=== PATIENT | female | born 2000 | race Caucasian/White ===

== ENCOUNTER 2022-05-09 11:06 | Emergency (ER) | payer SELFPAY ==
--- NOTE | 2022-05-09 12:41 | EDPHYS ---
Physician Documentation [facility] Name: Lavonne Navarro Age: 21 yrs Sex: Female : 2000 Arrival Date: 05/09/2022 Time: 11:09 Bed 7 Private MD: ED Physician Vincenzo Garrison HPI: 05/09 11:40 This 21 yrs old Female presents to ER via Ambulatory with complaints of Fall Injury. ma2 11:40 Patient tripped while walking down the stairs fell on her bottom, presents with low ma2 back pain, radiates to the right side lower back, denies urinary incontinence or retention, no focal weakness no change in sensation. No head trauma no neck pain.. Historical: - Allergies: 11:28 No Known Allergies; [facility] - Home Meds: 11:28 None [Active]; [facility] - PMHx: 11:28 None; [facility] - Immunization history:: Adult Immunizations up to date. - Social history:: Smoking status: Patient denies any tobacco usage or history of. - Family history:: not pertinent. ROS: 11:40 Constitutional: Negative for fever, chills, and weight loss. ma2 11:40 All other systems are negative. Exam: 11:40 Constitutional: This is a well developed, well nourished patient who is awake, alert, ma2 and in no acute distress. Head/Face: Normocephalic, atraumatic. Eyes: Pupils equal round and reactive to light, extra-ocular motions intact. Lids and lashes normal. Conjunctiva and sclera are non-icteric and not injected. Cornea within normal limits. Periorbital areas with no swelling, redness, or edema. ENT: Nares patent. No nasal discharge, no septal abnormalities noted. Tympanic membranes are normal and external auditory canals are clear. Oropharynx with no redness, swelling, or masses, exudates, or evidence of obstruction, uvula midline. Mucous membranes moist. Neck: Trachea midline, no thyromegaly or masses palpated, and no cervical lymphadenopathy. Supple, full range of motion without nuchal rigidity, or vertebral point tenderness. No Meningismus. Chest/axilla: Normal chest wall appearance and motion. Nontender with no deformity. No lesions are appreciated. Cardiovascular: Regular rate and rhythm with a normal S1 and S2. No gallops, murmurs, or rubs. Normal PMI, no JVD. No pulse deficits. Respiratory: Lungs have equal breath sounds bilaterally, clear to auscultation and percussion. No rales, rhonchi or wheezes noted. No increased work of breathing, no retractions or nasal flaring. Abdomen/GI: Soft, non-tender, with normal bowel sounds. No distension or tympany. No guarding or rebound. No evidence of tenderness throughout. Back: There is to palpation right lower back, otherwise no midline tenderness, no spinal tenderness. No costovertebral tenderness. Full range of motion. Skin: Warm, dry with normal turgor. Normal color with no rashes, no lesions, and no evidence of cellulitis. MS/ Extremity: Pulses equal, no cyanosis. Neurovascular intact. Full, normal range of motion. Neuro: Awake and alert, GCS 15, oriented to person, place, time, and situation. Cranial nerves II-XII grossly intact. Motor strength 5/5 in all extremities. Sensory grossly intact. Cerebellar exam normal. Normal gait. Vital Signs: 11:20 BP 102 / 75; Pulse 93; Resp 18; Temp 98.2(O); Pulse Ox 98% ; Weight 78.02 kg; Height 5 jh6 ft. 7 in. (170.18 cm); Pain 7/10; 11:20 Body Mass Index 26.94 (78.02 kg, 170.18 cm) jh6 [place] Coma Score: 11:31 Eye Response: spontaneous(4). Verbal Response: oriented(5). Motor Response: obeys jh6 commands(6). Total: 15. Trauma Score (Adult): 11:31 Eye Response: spontaneous(1); Verbal Response: oriented(1); Motor Response: obeys jh6 commands(2); Systolic BP: > 89 mm Hg(4); Respiratory Rate: 10 to 29 per min(4); Parisa Score: 15; Trauma Score: 12 MDM: 11:40 Differential diagnosis: contusion, sprain, strain. Data reviewed: vital signs, nurses ma2 notes. Counseling: I had a detailed discussion with the patient and/or guardian regarding: the historical points, exam findings, and any diagnostic results supporting the discharge/admit diagnosis, the presence of at least one elevated blood pressure reading (>120/80) during this emergency department visit, the need for outpatient follow up. Response to treatment: the patient's symptoms have markedly improved after treatment. 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 this time.. 12:41 Patient medically screened. ma2 Administered Medications: No medications were administered Disposition Summary: 05/09/22 12:41 Discharge Ordered Location: Home [facility] Condition: Stable [facility] Diagnosis - Low back pain nj2 Followup: nj2 - With: Private Physician - When: Tomorrow - Reason: If symptoms return Discharge Instructions: - Discharge Summary Sheet ma2 - Acute Back Pain, Adult nj2 Forms: - Medication Reconciliation Form nj2 - Thank You Letter nj2 - Antibiotic Education nj2 - Prescription Opioid Use nj2 Prescriptions: - Cyclobenzaprine 10 mg Oral Tablet - take 1 tablet by ORAL route every 8 hours As needed; 30 tablet; Refills: 0, ma2 Product Selection Permitted - Diclofenac Sodium 75 mg Oral Tablet Sustained Release - take 1 tablet by ORAL route 2 times per day; 30 tablet; Refills: 0, Product ma2 Selection Permitted - Medrol (Wally) 4 mg Oral Tablets, Dose Pack - take 1 tablet by ORAL route as directed - follow package instructions; 1 ma2 packet; Refills: 0, Product Selection Permitted Signatures: Dispatcher [employer] EDMS Vincenzo Garrison MD MD nj2 Bernice Grossman RN RN jh6 Corrections: (The following items were deleted from the chart) 12:32 11:41 Lumbar Spine 3 Views+[id number] ordered. EDMS EDMS
--- NOTE | 2022-05-09 12:41 | ER ---
Nurse's Notes [facility] Name: Lavonne Navarro Age: 21 yrs Sex: Female : 2000 Arrival Date: 05/09/2022 Time: 11:09 Bed 7 Private MD: Diagnosis: Low back pain Presentation: 05/09 11:20 Chief complaint: Patient states: pt stated that she slid down 4-5 steps and hit her [facility] lower back. now having lower back pain. no bruising or swelling noted. pain with palpation, denies numbness or tingling to lower ext. Coronavirus screen: Vaccine status: Patient reports receiving the 2nd dose of the covid vaccine. At this time, the client does not indicate any symptoms associated with coronavirus-19. Ebola Screen: Patient negative for fever greater than or equal to 101.5 degrees Fahrenheit, and additional compatible Ebola Virus Disease symptoms Patient denies exposure to infectious person. Patient denies travel to an Ebola-affected area in the 21 days before illness onset. Initial Sepsis Screen: Does the patient meet any 2 criteria? No. Patient's initial sepsis screen is negative. Does the patient have a suspected source of infection? No. Patient's initial sepsis screen is negative. Risk Assessment: Do you want to hurt yourself or someone else? Patient reports no desire to harm self or others. Onset of symptoms was May 09, 2022. 11:20 Method Of Arrival: Ambulatory [facility] 11:20 Acuity: VALERIE 4 [facility] Triage Assessment: 11:29 General: Appears in no apparent distress. Behavior is calm, cooperative. Pain: [facility] Complains of pain in coccyx, left lower back and right lower back. Historical: - Allergies: 11:28 No Known Allergies; [facility] - Home Meds: 11:28 None [Active]; [facility] - PMHx: 11:28 None; [facility] - Immunization history:: Adult Immunizations up to date. - Social history:: Smoking status: Patient denies any tobacco usage or history of. - Family history:: not pertinent. Screenin:30 Abuse screen: Denies threats or abuse. Nutritional screening: No deficits noted. [facility] Tuberculosis screening: No symptoms or risk factors identified. Fall Risk None identified. Primary Survey: 11:30 NO uncontrolled hemorrhage observed. A: The client is awake and alert. The airway is jh6 patent. Breathing/Chest: Spontaneous respiratory effort, equal unlabored respirations, breath sounds clear bilaterally, regular pattern, symmetrical chest rise and fall. Circulation: No external hemorrhage present. Regular and strong central pulse, skin warm/dry/normal color. Disability Pupils are equal, round, reactive to light and accommodation. Exposure/Environment: A warming method has been applied: A warm blanket has been provided to the patient. 11:31 Reassessment Alertness and Airway: Awake and alert. The airway is patent. Breathing: jh6 Spontaneous respiratory effort, equal unlabored respirations, breath sounds clear bilaterally, regular pattern with symmetrical chest rise and fall. Circulation: No external hemorrhage noted. Regular and strong central pulse, skin warm/dry/normal color. Disability: Pupils Pupils are equal, round, reactive to light and accomodation. Assessment: 11:30 General: Appears in no apparent distress. Behavior is calm, cooperative. 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 pt doesn't want to wait for x rays to be completed. Vital Signs: 11:20 BP 102 / 75; Pulse 93; Resp 18; Temp 98.2(O); Pulse Ox 98% ; Weight 78.02 kg; Height 5 jh6 ft. 7 in. (170.18 cm); Pain 7/10; 11:20 Body Mass Index 26.94 (78.02 kg, 170.18 cm) 6 Parisa Coma Score: 11:31 Eye Response: spontaneous(4). Verbal Response: oriented(5). Motor Response: obeys 6 commands(6). Total: 15. Trauma Score (Adult): 11:31 Eye Response: spontaneous(1); Verbal Response: oriented(1); Motor Response: obeys 6 commands(2); Systolic BP: > 89 mm Hg(4); Respiratory Rate: 10 to 29 per min(4); Parisa Score: 15; Trauma Score: 12 ED Course: 11:09 Patient arrived in ED. as 11:16 Vincenzo Garrison MD is Attending Physician. ma2 11:20 Bernice Grossman RN is Primary Nurse. 6 11:28 Triage completed. 6 11:29 Arm band placed on left wrist. 6 Administered Medications: No medications were administered Outcome: 12:41 Discharge ordered by . chelo 12:57 Patient left the ED. jh6 Signatures: Brooke Barrientos Mohammad, MD MD ma2 Hastedt, Jennifer RN RN jh6
[2022-05-09 13:02] VITALS: BP 102/75; TEMP 98.2; O2SAT 98
== END 2022-05-09 12:57 | disposition home or self-care (01) ==
LOC: ER 11:06
DX: M54.50 Low back pain, unspecified (principal)
CPT/HCPCS: 99281

== ENCOUNTER 2022-06-06 11:57 | Emergency (ER) | payer SELFPAY ==
--- OUTSIDE RECORDS SUMMARY | 2022-06-06 12:00 | XMS REPORT | Continuity of Care Document ---
:2000 Author Organization [facility] t Address [address] [place] [address] [address]. [address] [place] [address] Care Team Providers Name Role Phone WALDEMAR, Attending Clinician Unavailable DR Tyson MANCILLA Attending Clinician Unavailable DR ANNA Attending Clinician Unavailable DR YOEL Attending Clinician Unavailable DR WALDEMAR Admitting Clinician Unavailable DR Tyson MANCILLA Admitting Clinician Unavailable DR ANNA Admitting Clinician Unavailable DR YOEL Admitting Clinician Unavailable Payers Payer Name Policy Type Policy Number Effective Date Expiration Date S ource 1000 [id number] 2018 00:00:00 Problems This patient has no known problems. Allergies, Adverse Reactions, Alerts Allergy Allergy Status Severity Reaction(s) Onset Inactive Treating Comm ents Source Name Type Date Date Clinician No Known DA Active [facility] Medications This patient has no known medications. Vital Signs Vital Name Observation Time Observation Value Comments Source Height 2022-03-03 19:27:00 172.72 CM Weight 2022-03-03 19:27:00 80.73 KG Weight 2022-02-25 03:44:00 77.11 KG Height 2022-02-25 03:34:00 142.24 CM Height 2022-01-08 19:28:00 170.18 CM Weight 2022-01-08 19:28:00 79.37 KG Height 2021-12-21 18:36:00 170.18 CM Weight 2021-12-21 18:36:00 70.3 KG Procedures This patient has no known procedures. Encounters Start End Encounter Admission Attending Care Care Encounter Source Date/Time Date/Time Type Type Clinicians Facility Department ID 2022-03-03 2022-03-03 Outpatient E MARCELO MEDEIROS [facility] [id number] 19:14:00 22:40:00 [facility] 2022-02-25 2022-02-25 Outpatient E CHARO, [facility] [id number] [place] 03:29:00 04:30:00 FERNANDEZ [facility] 2022-01-08 2022-01-08 Outpatient E ANNA, [facility] [id number] [place] 19:07:00 20:00:00 REZA [facility] 2021-12-21 2021-12-21 Outpatient E , [facility] [id number] 18:25:00 19:25:00 [facility] Results Test Description Test Time Test Comments Results Result [facility] e Comments CT NECK W/CONTRAST 2022-03-03 *OW* 21:33:32 [facility] 2000 Sex: F Lo cation code: H5CT Scan of the Neck Soft Tissues with contrastContrast: Indication: Acute infectious disease. Sore throatComparison: None.Technical factors: Axial images were obtained through the neck with and without contrast. Sagittal and coronal reconstruction. This exam was performed according to our departmental dose-optimization program, which includes automated exposure control, adjustment of the mA and/or kV according to patient size and/or use of iterative reconstruction technique. Total exam DLP 397.46 mGy. Contrast dosage: unavailable.Findings: No evidence of soft tissue mass, fluid collection, cyst formation, edema, or adenopathy. No abnormal enhancing lesion is seen.Visualized paranasal sinuses are clear. The airway is patent. Vocal cords appear normal. Lung apices are clear.The palatine tonsils are enlarged, larger on the right. The right parathyroid gland is inhomogeneous and measures 2.93 x 3.43 x 3.37 cm, consistent with tonsillitis. No evidence of abscess, though inhomogeneity suggests the presence of phlegmon. Mild narrowing of the airway.Inhomogeneous right thyroid mass measures 5 x 4.11 x 2.4 cm.Musculotendinous structures are unremarkable. No evidence of atrophy, mass, or lesion.No vascular anomaly is seen.Skeletal structures are normal for patient age.No abnormal enhancing lesion is seen.Impression:1. Right thyroid 5 cm mass may represent tumor. Consider sonographic evaluation.2. Enlarged palatine tonsils, greater on the right. The right palatine tonsil is inhomogeneous, suggestive of phlegmon. Findings are consistent with tonsillitis.Camelia gaming signed by: Fabian Gray MD 03/03/2022 9:33 PM CDT GENERAL CHEMISTRY 13 *OW* divya 2022-03-03 20:50:00 Test Item Value Reference Range Interpretation Comme nts GLUCOSE (test code = GGUL) 99 mg/dL 73-118 BUN (test code = GBUN) 10 mg/dL 7-22 CREATININE (test code = GCRE) 0.4 mg/dL 0.6-1.2 L URIC ACID (test code = GUA) 3.1 mg/dL 2.2-6.6 CALCIUM (test code = GCL+) 10.1 mg/dL 8.0-10.3 ALBUMIN (test code = GALB) 4.6 g/dL 3.5-5.5 PROTEIN (test code = GTP) 9.1 g/dL 6.4-8.1 H ALT (test code = GALT) <5 U/L 10-47 L AST (test code = MINA) 20 U/L 11-38 ALK PHOS (test code = GALP) 72 U/L 42-141 BILI TOTAL (test code = GTBIL) 1.3 mg/dL 0.2-1.6 GGT (test code = GGGT) 8 U/L 5-65 AMYLASE (test code = GAMY) 48 U/L 14-97 CBC (INCLUDES AUTOMATED DIFFERENTIAL) *2022-03-03 20:37:00 Test Item Value Reference Range Interpretation Comments WBC (test code = WBC) 20.0 10\S\3/uL 4.5-11.0 H RBC (test code = RBC) 5.09 10\S\6/uL 4.30-5.70 HGB (test code = HBG) 13.7 g/dL 12.0-15.5 HCT (test code = HCT) 41.1 % 35.0-44.0 MCV (test code = MCV) 80.8 fL 81.0-99.0 L MCH (test code = MCH) 26.9 pg 27.0-31.0 L MCHC (test code = MCHC) 33.3 g/dL 32.0-36.0 RDW (test code = RDW) 14.1 % 11.5-14.5 PLT (test code = PLT) 282 10\S\3/uL 130-400 MPV (test code = OMPV) 9.7 fL 6.2-10.2 NEUTROP # (test code = NE#) 16.2 10\S\3/uL 1.6-8.0 H LYMPH # (test code = LY#) 2.4 10\S\3/uL 1.1-3.5 MID # (test code = GMID#) 1.4 10\S\3/uL 0.0-1.1 H GRAN % (test code = GRA%) 81.0 % 35.0-73.0 H LYMPH % (test code = GLY%) 11.8 % 20.0-55.0 L MID % (test code = GMID%) 7.2 % 0.0-10.0 URINE OW2022-02-25 04:04:00 Test Item Value Reference Range Interpretation Comments PREG UR (test code = PGU) Negative NEGATIVE DIRECT STREP GROUP AOW2022-02-25 04:03:00 Test Item Value Reference Range Interpretation Comments Strep A Ag (test code = STREP) NEGATIVE NEGATIVE URINALYSIS W/O MICROSCOPICOW2022-02-25 04:02:00 Test Item Value Reference Range Interpretation Comments COLOR (test code = Yellow YELLOW COLU) CLARITY (test code = Cloudy CLEAR CLA) GLUCOSE UR (test Negative NEGATIVE code = UA GLUCOSE) BILI UR (test code = 1+ NEGATIVE A BILE) KETONES UR (test Negative NEGATIVE code = SABA) SP GRAVITY (test >=1.030 1.005-1.030 code = SPGR) PH UR (test code = 5.5 4.5-8.0 PH) PROTEIN UR (test 1+ NEGATIVE A code = PU) NITRITE UR (test Negative NEGATIVE code = NITRITE) UROBIL UR (test code 1.0 E.U./dL = GUROQ) UROBIL UR (test code UROBILINOGEN = GUROQC) REFERENCE RANGE 0.2 - 1.0 EU/dL BLOOD UR (test code Trace-lysed NEGATIVE = UA BLOOD) LEUK ES UR (test Trace NEGATIVE code = LEUK) INFLUENZA A AND B OW2022-02-25 04:02:00 Test Item Value Reference Range Interpretation Comments INFLUENZ A (test code = INFA) NEGATIVE NEGATIVE INFLUENZ B (test code = INFB) NEGATIVE NEGATIVE SARS-CoV (RAPID ANTIGEN) WH2022-02-25 04:01:00 Test Item Value Reference Range Interpretation Comments SARS-CoV (ANTIGEN) NEGATIVE NEGATIVE (test code = COVAG) COVID AG (test This test has been code = COVAGC) marketed under the FDA Emergency Use Authorization (EUA) to meet challenges of the COVID-19 pandemic. The validation standards normally enforced by the FDA and the [employer] the [employer] (CAP) are more stringent than those required for this test. Therefore, the result should be interpreted with caution and close attention to other clinical and epidemiological data DIRECT STREP GROUP AOW2022-01-08 19:48:00 Test Item Value Reference Range Interpretation Comments Strep A Ag (test code = STREP) NEGATIVE NEGATIVE INFLUENZA A AND B OW2022-01-08 19:43:00 Test Item Value Reference Range Interpretation Comments INFLUENZ A (test code = INFA) NEGATIVE NEGATIVE INFLUENZ B (test code = INFB) NEGATIVE NEGATIVE SARS-CoV (RAPID ANTIGEN) WH2022-01-08 19:43:00 Test Item Value Reference Range Interpretation Comments SARS-CoV (ANTIGEN) NEGATIVE NEGATIVE (test code = COVAG) COVID AG (test This test has been code = COVAGC) marketed under the FDA Emergency Use Authorization (EUA) to meet challenges of the COVID-19 pandemic. The validation standards normally enforced by the FDA and the [employer] (CAP) are more stringent than those required for this test. Therefore, the result should be interpreted with caution and close attention to other clinical and epidemiological data XR CHEST 1 VIEW PORTABLE *OW*2022-01-08 19:31:03 [facility] 2000 Sex: FLocation code: [id number] 1 viewIndication: Fever.Comparison: NoneFindings:The heart and mediastinum are not remarkable.Costophrenic angles are clear. Elevation of left hemidiaphragm.Lungs are clear.Bone isunremarkable for age.Impression:1. No radiographic evidence of acute cardiopulmonary disease.Electronically signed by: Fabian Gray MD 01/08/2022 7:[address] ENGINEERING TECHNICIAN KNEE LEFT 3 VIEWS *OW*2021-12-21 19:17:09 [facility] : 2000 Sex: FEXAMINATION:XR KNEE LEFT 3 VIEWS *OW*CLINICAL INDICATION:Female, 21 years old with Traumatic injury; Unspecified fallCOMPARISON: NoneFINDINGS:Three view(s) of the knee obtained.Joint spaces: Anatomic.Bones: No acute fracture.Soft tissues: Unremarkable.IMPRESSION: No acute findings.Electronically signed by: Jun Hutton MD 12/21/2021 7:17 PM [facility]
--- NOTE | 2022-06-06 15:04 | EDPHYS ---
Physician Documentation [facility] Name: Lavonne Navarro Age: 21 yrs Sex: Female : 2000 Arrival Date: 06/06/2022 Time: 12:00 Bed 12 Private MD: ED Physician Leesa Macias HPI: 06/06 13:10 This 21 yrs old Female presents to ER via Ambulatory with complaints of Sore Throat. cp 13:10 The patient presents with sore throat. The patient describes throat pain as constant. cp 13:10 Onset: The symptoms/episode began/occurred 4 day(s) ago. cp 13:10 Severity of symptoms: in the emergency department the symptoms are unchanged, despite home interventions. Associated signs and symptoms: Pertinent positives: fatigue, Pertinent negatives cough, dysphagia, earache, fever, vomiting. 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 - Social history:: Smoking status: Patient denies any tobacco usage or history of. ROS: 13:15 Constitutional: Positive for fatigue, Negative for chills, fever, poor PO intake. cp 13:15 Eyes: Negative for injury, pain, redness, and discharge. cp 13:15 ENT: Positive for sore throat, Negative for drainage from ear(s), ear pain, difficulty swallowing, difficulty handling secretions. 13:15 Respiratory: Negative for cough, shortness of breath, wheezing. 13:15 Abdomen/GI: Negative for abdominal pain, nausea, vomiting, and diarrhea. 13:15 Neuro: Negative for altered mental status, headache. 13:15 All other systems are negative. Exam: 13:20 Constitutional: The patient appears in no acute distress, alert, awake, non-toxic, well cp developed, well nourished. 13:20 Head/Face: Normocephalic, atraumatic. cp 13:20 Eyes: Periorbital structures: appear normal, Conjunctiva: normal, no exudate, no injection, Sclera: no appreciated abnormality, Lids and lashes: appear normal, bilaterally. 13:20 ENT: External ear(s): are unremarkable, Ear canal(s): are normal, clear, TM's: dullness, bilaterally, Nose: is normal, Mouth: Lips: moist, Oral mucosa: moist, Posterior pharynx: Airway: no evidence of obstruction, patent, Tonsils: bilaterally enlarged, with erythema, no exudate, Uvula: midline, erythema, that is mild, exudate, is not appreciated. 13:20 Neck: ROM/movement: is normal, is supple, without pain, no range of motions limitations, no meningismus. 13:20 Chest/axilla: Inspection: normal. 13:20 Cardiovascular: Rate: normal, Rhythm: regular. 13:20 Respiratory: the patient does not display signs of respiratory distress, Respirations: normal, no use of accessory muscles, no retractions, labored breathing, is not present, Breath sounds: are clear throughout, no decreased breath sounds, no stridor, no wheezing. 13:20 Abdomen/GI: Inspection: abdomen appears normal, Palpation: abdomen is soft and non-tender, in all quadrants. 13:20 Neuro: Orientation: to person, place \\T\\ time. Mentation: is normal. Vital Signs: 12:06 BP 101 / 67; Pulse 86; Resp 16; Temp 98.8(TE); Pulse Ox 100% ; Weight 76.2 kg; Height 5 vg1 ft. 7 in. (170.18 cm); Pain 7/10; 13:55 BP 102 / 66; Pulse 77; Resp 18; Pulse Ox 100% on R/A; bh1 12:06 Body Mass Index 26.31 (76.20 kg, 170.18 cm) vg1 MDM: 12:37 Patient medically screened. cp 14:00 Differential diagnosis: group A strep tonsillitis, peritonsillar abscess pharyngitis, cp retropharyngeal abcess tonsillitis, upper respiratory infection, uvulitis, COVID-19. 15:02 Data reviewed: vital signs, nurses notes, lab test result(s). cp 15:02 Counseling: I had a detailed discussion with the patient and/or guardian regarding: the historical points, exam findings, and any diagnostic results supporting the discharge/admit diagnosis, lab results, to return to the emergency department if symptoms worsen or persist or if there are any questions or concerns that arise at home. 06/06 13:04 Order name: Strep; Complete Time: 14:23 cp 06/06 14:55 Interpretation: Reviewed. 06/06 13:04 Order name: COVID-19 SARS RT PCR (Document "Date of Onset" if Symptomatic); Complete cp Time: 14:55 06/06 14:55 Interpretation: Reviewed. 06/06 13:04 Order name: Influenza Screen (a \\T\\ B); Complete Time: 14:23 cp 06/06 13:50 Order name: Throat Culture EDMS Administered Medications: No medications were administered Disposition Summary: 06/06/22 15:03 Discharge Ordered Location: Home cp Problem: new cp Symptoms: have improved cp Condition: Stable cp Diagnosis - Acute tonsillitis, unspecified cp - SARS-associated coronavirus as the cause of diseases classified elsewhere cp Followup: cp - With: Private Physician - When: 2 - 3 days - Reason: Worsening of condition Discharge Instructions: - Discharge Summary Sheet cp - Tonsillitis cp - COVID-19 cp - Things to Know about the COVID-19 Pandemic - [facility] cp - 10 Things You Can Do to Manage Your COVID-19 Symptoms at Home - [facility] cp - COVID-19: Quarantine vs. Isolation - [facility] cp - Prevent the Spread of COVID-19 if You Are Sick - [facility] cp Forms: - Medication Reconciliation Form cp - Thank You Letter cp - Antibiotic Education cp - Prescription Opioid Use cp - Work release form 1 Prescriptions: - Amoxicillin 875 mg Oral Tablet - take 1 tablet by ORAL route every 12 hours for 10 days; 20 tablet; Refills: 0, cp Product Selection Permitted - Ibuprofen 800 mg Oral Tablet - take 1 tablet by ORAL route every 8 hours As needed take with food; 30 tablet; cp Refills: 0, Product Selection Permitted Signatures: Dispatcher [employer] EDMS Wilmer Viramontes PA PA cp Garcia, Victoria, RN RN Leesa Quezada2
--- NOTE | 2022-06-06 15:04 | ER ---
Nurse's Notes [facility] Name: Lavonne Navarro Age: 21 yrs Sex: Female : 2000 Arrival Date: 06/06/2022 Time: 12:00 Bed 12 Private MD: Diagnosis: Acute tonsillitis, unspecified;SARS-associated coronavirus as the cause of diseases classified elsewhere Presentation: 06/06 12:06 Chief complaint: Patient states: sore throat for 3-4 days; denies cough or NV; states vg1 fatigue and has been exposed to covid at work. Coronavirus screen: Vaccine status: Patient reports receiving the 1st dose of the Covid vaccine. Client denies travel out of the [place] in the last 14 days. Ebola Screen: Patient denies exposure to infectious person. Patient denies travel to an Ebola-affected area in the 21 days before illness onset. Initial Sepsis Screen: Does the patient meet any 2 criteria? No. Patient's initial sepsis screen is negative. Does the patient have a suspected source of infection? No. Patient's initial sepsis screen is negative. Risk Assessment: Do you want to hurt yourself or someone else? Patient reports no desire to harm self or others. Onset of symptoms was June 02, 2022. 12:06 Method Of Arrival: Ambulatory vg1 12:06 Acuity: VALERIE 4 vg1 Triage Assessment: 12:06 General: Appears uncomfortable, Behavior is cooperative, drowsy. Pain: Complains of vg1 pain in throat Pain currently is 7 out of 10 on a pain scale. EENT: Throat is reddened has enlarged tonsils. Respiratory: Airway is patent Respiratory effort is even, unlabored. 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 - Social history:: Smoking status: Patient denies any tobacco usage or history of. Screenin:17 Abuse screen: Denies threats or abuse. Nutritional screening: No deficits noted. 1 Tuberculosis screening: No symptoms or risk factors identified. Fall Risk None identified. Assessment: 12:17 Reassessment: No changes from previously documented assessment. Respiratory: Airway is [facility] patent Breath sounds are clear bilaterally. Vital Signs: 12:06 BP 101 / 67; Pulse 86; Resp 16; Temp 98.8(TE); Pulse Ox 100% ; Weight 76.2 kg; Height 5 [facility] ft. 7 in. (170.18 cm); Pain 7/10; 13:55 BP 102 / 66; Pulse 77; Resp 18; Pulse Ox 100% on R/A; bh1 12:06 Body Mass Index 26.31 (76.20 kg, 170.18 cm) [facility] ED Course: 12:00 Patient arrived in ED. mr 12:06 Wilmer Viramontes PA is PHCP. cp 12:06 Leesa Macias is Attending Physician. cp 12:06 Arm band placed on. [facility] 12:09 Triage completed. [facility] 12:16 Rohini Davis, RN is Primary Nurse. [facility] 12:17 No apparent distress. Resting quietly. [facility] 12:17 Patient has correct armband on for positive identification. Bed in low position. Call [facility] light in reach. 12:17 No provider procedures requiring assistance completed. Patient did not have IV access [facility] during this emergency room visit. 12:18 Awaiting ED provider evaluation. [facility] 13:28 Influenza Screen (a \\T\\ B) Sent. 1 13:28 COVID-19 SARS RT PCR (Document "Date of Onset" if Symptomatic) Sent. [facility] 13:28 Strep Sent. [facility] 13:55 No apparent distress. Resting quietly. Awaiting lab results. [facility] 14:50 Throat Culture Sent. [facility] Administered Medications: No medications were administered Medication: 12:17 VIS not applicable for this client. [facility] Outcome: 15:03 Discharge ordered by . cp 15:15 Discharged to home ambulatory. [facility] 15:15 Condition: good 15:15 Discharge instructions given to patient, Instructed on discharge instructions, follow up and referral plans. medication usage, Demonstrated understanding of instructions, follow-up care, medications, Prescriptions given X 2. 15:15 Patient left the ED. [facility] Signatures: Gilda Dean mr Wilmer Viramontes PA PA cp Garcia, Victoria, RN RN [facility] Rohini Davis RN RN [facility] Corrections: (The following items were deleted from the chart) 12: 12:06 Chief complaint: Patient states: sore throat for 3-4 days; denies cough or NV. vg1vg1 12:10 12:06 Pulse 86bpm; Resp 16bpm; Pulse Ox 100%; Temp 98.8F Temporal; 76.2 kg; Height 5 vg1 ft. 7 in.; BMI: 26.3; Pain 7/10; vg1
[2022-06-06 15:21] VITALS: TEMP 98.8; O2SAT 100
[2022-06-06 15:23] VITALS: BP 102/66
== END 2022-06-06 15:15 | disposition home or self-care (01) ==
LOC: ER 11:57
DX: U07.1 COVID-19 (principal); J03.90 Acute tonsillitis, unspecified
CPT/HCPCS: 87070; 87081; 87804; 99283; U0003

== ENCOUNTER 2023-01-15 14:08 | Emergency (ER) | payer SELFPAY ==
--- OUTSIDE RECORDS SUMMARY | 2023-01-15 14:10 | XMS REPORT | Continuity of Care Document ---
:2000 Author Organization [facility] t Address [address] [place] [address] Care Team Providers Name Role Phone WALDEMAR, DR ROBERTSON Attending Clinician Unavailable CHARO, DR FERNANDEZ Mehta Attending Clinician Unavailable ANNA, DR COBB Attending Clinician Unavailable , DR MATA Attending Clinician Unavailable WALDEMAR, DR ROBERTSON Admitting Clinician Unavailable CHARO, DR FERNANDEZ Mehta Admitting Clinician Unavailable ANNA, DR COBB Admitting Clinician Unavailable , DR MATA Admitting Clinician Unavailable Payers Payer Name Policy Type Policy Number Effective Date Expiration Date S ource 1000 [id number] 2018 00:00:00 Problems This patient has no known problems. Allergies, Adverse Reactions, Alerts Allergy Allergy Status Severity Reaction(s) Onset Inactive Treating Comm ents Source Name Type Date Date Clinician No Known DA Active [facility] Medications This patient has no known medications. [...] ID 2022-03-03 2022-03-03 Outpatient E MARCELO MEDEIROS [facility] [id number] [facility] 19:14:00 22:40:00 [facility] 2022-02-25 2022-02-25 Outpatient E CHARO, [facility] [id number] [facility] 03:29:00 04:30:00 FERNANDEZ [facility] 2022-01-08 2022-01-08 Outpatient E ANNA, [facility] [id number] [facility] 19:07:00 20:00:00 REZA [facility] 2021-12-21 2021-12-21 Outpatient E , [facility] [id number] [facility] 18:25:00 19:25:00 WASIM [facility] Results Test Description Test Time Test Comments Results Result [facility] e Comments CT NECK W/CONTRAST 2022-03-03 *OW* 21:33:32 [facility] 2000 Sex: F Lo [...] the FDA and the College of the [place] (CAP) are more stringent than those [...] the FDA and the College of the [place] [employer] (CAP) are more stringent than those required for this test. Therefore, the result should be interpreted with caution and close attention to other clinical and epidemiological data XR CHEST 1 VIEW PORTABLE *OW*2022-01-08 19:31:03 [facility] : 2000 Sex: FLocation code: H5 Chest 1 viewIndication: Fever.Comparison: NoneFindings:The heart and mediastinum are not remarkable.Costophrenic angles are clear. Elevation of left hemidiaphragm.Lungs are clear.Bone is unremarkable for age.Impression:1. No radiographic evidence of acute cardiopulmonary disease.Electronically signed by: Fabian Gray MD 01/08/2022 7:31 PM [facility] KNEE LEFT 3 VIEWS *OW*2021-12-21 19:17:09 [facility] : 2000 Sex: FEXAMINATION:XR KNEE LEFT 3 VIEWS *OW*CLINICAL INDICATION:Female, 21 years old with Traumatic injury; Unspecified fallCOMPARISON: NoneFINDINGS:Three view(s) of the knee obtained.Joint spaces: Anatomic.Bones: No acute fracture.Soft tissues: Unremarkable.IMPRESSION: No acute findings.Electronically signed by: Jun Hutton MD 12/21/2021 7:17 PM [facility]
[2023-01-15] MEDS ORDERED: IBUPROFEN 200 MG TAB PO ONE (14:56)
[2023-01-15 15:39] LABS: SARS-COV-2 RT PCR NEGATIVE (NEGATIVE)
--- NOTE | 2023-01-15 15:56 | EDPHYS ---
Physician Documentation [facility] Name: Lavonne Navarro Age: 22 yrs Sex: Female : 2000 Arrival Date: 01/15/2023 Time: 14:08 Bed IW1 Private MD: ED Physician Louis Garrett HPI: 01/15 14:15 This 22 yrs old Female presents to ER via Ambulatory with complaints of Fever, Sore jh7 Throat, bodyaches. 14:15 The patient reports fever, not measured (subjective). Onset: The symptoms/episode jh7 began/occurred yesterday. Associated signs and symptoms: Pertinent positives: arthralgias, chills, sore throat, Pertinent negatives: abdominal pain, chest pain, cough, diarrhea, shortness of breath. 22-year-old female presents with fever, sore throat, chills, and body aches starting yesterday morning. Reports that her symptoms worsened today. No medical problems and no allergies.. Historical: - Allergies: 14:17 No Known Allergies; ld1 - Home Meds: 14:17 None [Active]; ld1 - PMHx: 14:17 None; ld1 - PSHx: 14:17 None; ld1 - Immunization history:: Adult Immunizations up to date, Client reports receiving the 2nd dose of the Covid vaccine. - Social history:: Smoking status: Patient denies any tobacco usage or history of. Patient/guardian denies using alcohol. ROS: 14:15 Eyes: Negative for injury, pain, redness, and discharge, Cardiovascular: Negative for jh7 chest pain, palpitations, and edema, Respiratory: Negative for shortness of breath, cough, wheezing, and pleuritic chest pain, Abdomen/GI: Negative for abdominal pain, nausea, vomiting, diarrhea, and constipation, Back: Negative for injury and pain, MS/Extremity: Negative for injury and deformity, Skin: Negative for injury, rash, and discoloration, Neuro: Negative for headache, weakness, numbness, tingling, and seizure. 14:15 Constitutional: Positive for body aches, chills, malaise. 14:15 ENT: Positive for sore throat. 14:15 All other systems are negative. Exam: 14:15 Constitutional: This is a well developed, well nourished patient who is awake, alert, jh7 and in no acute distress. Head/Face: Normocephalic, atraumatic. Neck: Trachea midline, no thyromegaly or masses palpated, and no cervical lymphadenopathy. Supple, full range of motion without nuchal rigidity, or vertebral point tenderness. No Meningismus. Cardiovascular: Regular rate and rhythm with a normal S1 and S2. No gallops, murmurs, or rubs. Normal PMI, no JVD. No pulse deficits. Respiratory: Lungs have equal breath sounds bilaterally, clear to auscultation and percussion. No rales, rhonchi or wheezes noted. No increased work of breathing, no retractions or nasal flaring. Abdomen/GI: Soft, non-tender, with normal bowel sounds. No distension or tympany. No guarding or rebound. No evidence of tenderness throughout. Skin: Warm, dry with normal turgor. Normal color with no rashes, no lesions, and no evidence of cellulitis. MS/ Extremity: Pulses equal, no cyanosis. Neurovascular intact. Full, normal range of motion. Neuro: Awake and alert, GCS 15, oriented to person, place, time, and situation. Motor strength 5/5 in all extremities. Sensory grossly intact. Normal gait. 14:15 ENT: Nose: is normal, Posterior pharynx: Tonsils: bilaterally enlarged, with erythema, no exudate, erythema, that is mild. Vital Signs: 14:16 BP 104 / 62; Pulse 106; Resp 18; Temp 97.9(O); Pulse Ox 98% on R/A; Weight 77.11 kg; ld1 Height 5 ft. 4 in. (162.56 cm); Pain 0/10; 14:16 Body Mass Index 29.18 (77.11 kg, 162.56 cm) ld1 MDM: 14:09 Patient medically screened. 7 15:20 Transition of care: Care assumed from Bernice VALENTIN. ms3 15:57 Differential diagnosis: viral Infection, URI, COVID vs Strep. Data reviewed: vital ms3 signs, nurses notes, lab test result(s), and as a result, I will discharge patient. I considered the following discharge prescriptions or medication management in the emergency department Medications were administered in the Emergency Department. See MAR. I considered the following discharge prescriptions or medication management in the emergency department I discussed and recommended Over The Counter medications. Counseling: I had a detailed discussion with the patient and/or guardian regarding: the historical points, exam findings, and any diagnostic results supporting the discharge/admit diagnosis, lab results, the need for outpatient follow up, to return to the emergency department if symptoms worsen or persist or if there are any questions or concerns that arise at home. ED course: Discussed labs with patient. Patient to follow-up with primary care physician in 2 to 3 days. Patient understands agrees plan. All questions were answered. Return precautions discussed include worsening symptoms, or any other concerns. On reevaluation patient is improved, alert and oriented x4, no apparent distress, nontoxic-appearing, ambulatory in emergency department, speaking full sentences. 01/15 14:09 Order name: COVID-19/FLU A+B [facility] 01/15 14:09 Order name: Strep [facility] 01/15 14:52 Order name: Group A Streptococcus Rapid Sc; Complete Time: 14:57 EDMS 01/15 15:39 Order name: COVID-19/FLU A+B; Complete Time: 15:50 EDMS Administered Medications: 14:53 Drug: Motrin (ibuprofen) 600 mg Route: PO; ld1 Disposition: 15:33 Co-signature as Attending Physician, Louis Garrett DO. ms3 Disposition Summary: 01/15/23 15:56 Discharge Ordered Location: Home ms3 Condition: Stable ms3 Diagnosis - Acute upper respiratory infection, unspecified ms3 - Fever, unspecified ms3 - Myalgia ms3 Followup: ms3 - With: Allen Meyer MD - When: 2 - 3 days - Reason: Recheck today's complaints Discharge Instructions: - Discharge Summary Sheet ms3 - Fever, Adult ms3 - Upper Respiratory Infection, Adult ms3 Forms: - Medication Reconciliation Form ms3 - Thank You Letter ms3 - Antibiotic Education ms3 - Prescription Opioid Use ms3 - Work release form ld1 Signatures: Dispatcher [employer] EDLouis Summers DO DO ms3 Saira Chua RN RN ld1 Bernice Llanes FNP MANAGEMENT PSYCHOLOGIST jh7
--- NOTE | 2023-01-15 15:56 | ER ---
Nurse's Notes [facility] Name: Lavonne Navarro Age: 22 yrs Sex: Female : 2000 Arrival Date: 01/15/2023 Time: 14:08 Bed IW1 Private MD: Diagnosis: Acute upper respiratory infection, unspecified;Fever, unspecified;Myalgia Presentation: 01/15 14:16 Chief complaint: Patient states: Sore throat X 1 day. Coronavirus screen: At this time, ld1 the client does not indicate any symptoms associated with coronavirus-19. Ebola Screen: No symptoms or risks identified at this time. Initial Sepsis Screen: Does the patient meet any 2 criteria? No. Patient's initial sepsis screen is negative. Does the patient have a suspected source of infection? No. Patient's initial sepsis screen is negative. Risk Assessment: Do you want to hurt yourself or someone else? Patient reports no desire to harm self or others. Onset of symptoms was January 15, 2023. 14:16 Method Of Arrival: Ambulatory ld1 14:16 Acuity: VALERIE 4 ld1 Triage Assessment: 14:17 General: Appears in no apparent distress. comfortable, Behavior is calm, cooperative, ld1 appropriate for age. Pain: Denies pain. EENT: No signs and/or symptoms were reported regarding the EENT system. Throat is reddened. Neuro: Level of Consciousness is awake, alert, obeys commands, Oriented to person, place, time, situation. Cardiovascular: Capillary refill < 3 seconds Patient's skin is warm and dry. Respiratory: Airway is patent Respiratory effort is even, unlabored. GI: Abdomen is flat, non-distended. Historical: - Allergies: 14:17 No Known Allergies; ld1 - Home Meds: 14:17 None [Active]; ld1 - PMHx: 14:17 None; ld1 - PSHx: 14:17 None; ld1 - Immunization history:: Adult Immunizations up to date, Client reports receiving the 2nd dose of the Covid vaccine. - Social history:: Smoking status: Patient denies any tobacco usage or history of. Patient/guardian denies using alcohol. Screenin:04 [facility] ED Fall Risk Assessment (Adult) History of falling in the last 3 months, ld1 including since admission No falls in past 3 months (0 pts). Abuse screen: Denies threats or abuse. Denies injuries from another. Nutritional screening: No deficits noted. Tuberculosis screening: No symptoms or risk factors identified. Assessment: 16:03 Reassessment: See triage assessmebt. ld1 16:04 Respiratory: Airway is patent Respiratory effort is even, unlabored, Breath sounds are ld1 clear bilaterally. Vital Signs: 14:16 BP 104 / 62; Pulse 106; Resp 18; Temp 97.9(O); Pulse Ox 98% on R/A; Weight 77.11 kg; ld1 Height 5 ft. 4 in. (162.56 cm); Pain 0/10; 14:16 Body Mass Index 29.18 (77.11 kg, 162.56 cm) ld1 ED Course: 14:08 Patient arrived in ED. am2 14:09 Bernice Llanes FNP is PHCP. 7 14:09 Louis Garrett DO is Attending Physician. [facility] 14:17 Triage completed. ld1 14:17 Arm band placed on right wrist. ld1 14:17 Strep Sent. ld1 14:17 COVID-19/FLU A+B Sent. ld1 15:53 Allen Meyer MD is Referral Physician. ms3 16:04 Patient has correct armband on for positive identification. Placed in gown. Bed in low ld1 position. Call light in reach. Side rails up X2. rural sociologist on. Pulse ox on. NIBP on. Door closed. Noise minimized. 16:04 No provider procedures requiring assistance completed. Patient did not have IV access ld1 during this emergency room visit. Administered Medications: 14:53 Drug: Motrin (ibuprofen) 600 mg Route: PO; ld1 Outcome: 15:56 Discharge ordered by . ms3 16:04 Discharged to home ambulatory. ld1 16:04 Condition: stable 16:04 Discharge instructions given to patient, Instructed on discharge instructions, follow up and referral plans. Demonstrated understanding of instructions, follow-up care. 16:04 Patient left the ED. ld1 Signatures: Muna Hernandez am2 Louis Garrett DO DO ms3 Saira Chua RN RN ld1 Bernice Llanes FNP [place] [id number]
[2023-01-15 16:30] VITALS: BP 104/62; TEMP 97.9; O2SAT 98
== END 2023-01-15 16:04 | disposition home or self-care (01) ==
LOC: ER 14:08
DX: J06.9 Acute upper respiratory infection, unspecified (principal); M79.10 Myalgia, unspecified site; Z20.822 Contact with and (suspected) exposure to COVID-19
CPT/HCPCS: 0240U; 87070; 87081; 99284

== ENCOUNTER 2023-08-30 11:31 | Emergency (ER) | payer SELFPAY ==
--- OUTSIDE RECORDS SUMMARY | 2023-08-30 11:34 | XMS REPORT | Continuity of Care Document ---
:2000 Author Organization [facility] t Address [address] [place] [address] Care Team Providers Name Role Phone PCP, PATIENT DOES NOT HAVE A Primary Care Physician Unavaila Marielle Quintero DO Attending Clinician MARIELLE RODRIGUEZ Attending Clinician Unavailable WALDEMAR, DR ROBERTSON Attending Clinician Unavailable CHARO, [...] Effective Date Expiration Date S ource 1000 [id number] 2018 00:00:00 Problems This patient has no known problems. Allergies, Adverse Reactions, Alerts Allergy Allergy Status Severity Reaction(s) Onset Inactive Treating Comm ents Source Name Type Date Date Clinician No Known DA Active [facility] NO KNOWN Drug Active [facility] [place] Social History Social Habit Start Date Stop Date Quantity Comments Source Sex Assigned At [birth year] [facility] 00:00:00 00:00:00 Medical Branch Smoking Status Start Date Stop Date Source Tobacco smoking consumption [facility] Medical unknown Branch Medications Ordered Filled Start Stop Current Ordering Indication Dosage Frequency Signature Comments Components Source Medication Medication Date Date Medication? Clinician (SIG) Name Name ibuprofen 600mg 600 mg, Uni vers (IBU) 05-07 Oral, ity of tablet 600 07:30: 07:18 ONCE, 1 Nigel as mg 00 :00 dose, On Medical Fri Branch 05/07/23 at 0230, [place] cyclobenzap Yes [id number] 10mg Take 1 Univers rine 10 mg 05-07 tablet by ity of tablet 00:00: mouth 3 (three) Medical times [place] daily as needed for Muscle Spasms. Vital Signs Vital Name Observation Time Observation Value Comments Source Systolic blood 2023-05-07 07:06:00 113 mm[Hg] [facility] Diastolic blood 2023-05-07 07:06:00 72 mm[facility]Hg[facility] Heart rate 2023-05-07 07:06:00 84 /min [facility] Body temperature 2023-05-07 07:06:00 36.89 [facility] Respiratory rate 2023-05-07 07:06:00 16 /min [facility] Body height 2023-05-07 07:06:00 170.2 cm [facility] Body weight 2023-05-07 07:06:00 70.308 kg [facility] BMI 2023-05-07 07:06:00 24.28 kg/m2 [facility] Oxygen saturation in 2023-05-07 07:06:00 98 /min [facility] Arterial blood by [facility] Pulse oximetry [place] Height 2022-03-03 19:27:00 172.72 CM Weight 2022-03-03 19:27:00 80.73 KG Weight 2022-02-25 03:44:00 77.11 KG Height 2022-02-25 03:34:00 142.24 CM Height 2022-01-08 19:28:00 170.18 CM Weight 2022-01-08 19:28:00 79.37 KG Height 2021-12-21 18:36:00 170.18 CM Weight 2021-12-21 18:36:00 70.3 KG Procedures Procedure Date / Time Performed Performing Clinician [facility] e NOTICE OF PRIVACY 2023-05-07 07:02:45 Doctor Unassigned, [facility] Branch CONSENT/REFUSAL FOR 2023-05-07 07:02:24 Doctor Unassigned, [facility] DI[facility]IS AND Name Medical Branch TREATMENT Encounters Start End Encounter Admission Attending Care Care Encounter Source Date/Time Date/Time Type Type Clinicians Facility Department ID 2023-05-07 2023-05-07 [id number] Univers 02:04:00 02:35:00 Marielle LAI [id number] ity [facility] [id number] [facility] [id number] [facility] 084 Branch 2023-05-07 2023-05-07 [facility] [id number] Univers 02:04:00 02:35:00 MARIELLE pizano [facility] 2022-03-03 2022-03-03 Outpatient E WALDEMAR, MARCELO [facility] [id number] [facility] 19:14:00 22:40:00 Medica l Center 2022-02-25 2022-02-25 Outpatient E CHARO, [facility] [id number] [facility] 03:29:00 04:30:00 FERNANDEZ [facility] [place] 2022-01-08 2022-01-08 Outpatient E ANNA, [facility] [id number] [facility] 19:07:00 20:00:00 REZA [facility] [place] 2021-12-21 2021-12-21 Outpatient E [facility] ECC [id number] [facility] 18:25:00 19:25:00 WASIM [facility] Results Test Description Test Time Test Comments Results Result [facility] e Comments CT NECK W/CONTRAST 2022-03-03 *OW* 21:33:32 [facility] 2000 Sex: F cation code: H5CT Scan of the Neck [...] the FDA and the College of the [place] [employer] (CAP) are more stringent than those [...] the FDA and the College of the [place] [employer] (CAP) are more stringent than those required for this test. Therefore, the result should be interpreted with caution and close attention to other clinical and epidemiological data XR CHEST 1 VIEW PORTABLE *OW*2022-01-08 19:31:03 [facility] 2000 Sex: FLocation code: H5 Chest 1 viewIndication: Fever.Comparison: NoneFindings:The heart and mediastinum are not remarkable.Costophrenic angles are clear. Elevation of left hemidiaphragm.Lungs are clear.Bone is unremarkable for age.Impression:1. No radiographic evidence of acute cardiopulmonary disease.Electronically signed by: Fabian Gray MD 01/08/2022 7:31 PM QUALITY TESTER KNEE LEFT 3 VIEWS *OW*2021-12-21 19:17:09 [facility] 2000 Sex: FEXAMINATION:XR KNEE LEFT 3 VIEWS *OW*CLINICAL INDICATION:Female, 21 years old with Traumatic injury; Unspecified fallCOMPARISON: NoneFINDINGS:Three view(s) of the knee obtained.Joint spaces: Anatomic.Bones: No acute fracture.Soft tissues: Unremarkable.IMPRESSION: No acute findings.Electronically signed by: Jun Hutton MD 12/21/2021 7:17 PM QUALITY TESTER
--- NOTE | 2023-08-30 12:50 | RAD REPORT ---
EXAM DESCRIPTION: RAD - Shoulder Right 2 View - 08/30/2023 12:42 pm CLINICAL HISTORY: PAIN COMPARISON: No comparisons FINDINGS: No bone or joint abnormality.
--- NOTE | 2023-08-30 12:51 | ER ---
Nurse's Notes [facility] Name: Lavonne Navarro Age: 22 yrs Sex: Female : 2000 Arrival Date: 08/30/2023 Time: 11:31 Bed 20 Private MD: Diagnosis: Pain in right shoulder Presentation: 08/30 11:39 Chief complaint: Patient states: R shoulder pain for 2 days after getting body slammed nj1 onto concrete. Coronavirus screen: Vaccine status: Patient reports receiving the 2nd dose of the covid vaccine. Client denies travel out of the [place] in the last 14 days. At this time, the client does not indicate any symptoms associated with coronavirus-19. Ebola Screen: Patient denies travel to an Ebola-affected area in the 21 days before illness onset. Initial Sepsis Screen: Does the patient meet any 2 criteria? No. Patient's initial sepsis screen is negative. Does the patient have a suspected source of infection? Yes: Bone or joint infection. Risk Assessment: Do you want to hurt yourself or someone else? Patient reports no desire to harm self or others. Onset of symptoms was August 28, 2023. 11:39 Method Of Arrival: Ambulatory [facility] 11:39 Acuity: VALERIE 4 nj1 Triage Assessment: 12:00 Pain: Complains of pain in right shoulder Pain began 2-3 days ago. Neuro: Level of ap3 Consciousness is awake, alert, obeys commands, Oriented to person, place, time, situation. Cardiovascular: Patient's skin is warm and dry. Respiratory: Airway is patent Respiratory effort is even, unlabored, Respiratory pattern is regular, symmetrical. 12:00 General: Appears in no apparent distress. Behavior is calm, cooperative. ap3 Historical: - Allergies: 11:38 No Known Allergies; nj1 - Immunization history:: Adult Immunizations up to date. - Social history:: Smoking status: Patient denies any tobacco usage or history of. Screenin:59 Abuse screen: Denies threats or abuse. Nutritional screening: No deficits noted. ap3 Tuberculosis screening: No symptoms or risk factors identified. 12:00 [facility] ED Fall Risk Assessment (Adult) History of falling in the last 3 months, ap3 including since admission No falls in past 3 months (0 pts). Vital Signs: 11:39 BP 98 / 76; Pulse 76; Resp 17; Temp 98; Pulse Ox 100% ; Pain 8/10; nj1 11:39 Pain Scale: Adult nj1 ED Course: 11:32 Patient arrived in ED. rg4 11:35 aCssidy Arteaga FNP-C is [facility]. kb 11:35 Rose Marie Mcpherson MD is Attending Physician. kb 11:38 Arm band placed on Patient placed in an exam room, on a stretcher. nj1 11:40 Triage completed. nj1 11:54 Muna Charles, RN is Primary Nurse. ap3 11:59 Patient has correct armband on for positive identification. Bed in low position. Call ap3 light in reach. Side rails up X 1. Pulse ox on. NIBP on. 12:00 No provider procedures requiring assistance completed. ap3 12:44 Shoulder Right (2 View) XRAY In Process Unspecified. EDMS 13:13 Patient did not have IV access during this emergency room visit. kc6 Administered Medications: 13:01 Drug: Ibuprofen PO 600 mg PO once Route: PO; nj1 13:13 Follow up: Response: No adverse reaction kc6 Medication: 13:13 VIS not applicable for this client. kc6 Outcome: 12:51 Discharge ordered by MD. kb 13:13 Discharged to home ambulatory, with family, kc6 13:13 Condition: stable 13:13 Discharge instructions given to family, bike mechanic, Instructed on discharge instructions, follow up and referral plans. Demonstrated understanding of instructions, follow-up care, 13:13 Patient left the ED. kc6 Signatures: Dispatcher [employer] EDSC Cassidy Arteaga FNP-C GLAZIER [employer] GLASS-Brenda Kohli rg4 Muna Charles, RN RN ap3 Vibha Panda RN RN kc6 Suma Gomez RN RN nj1
--- NOTE | 2023-08-30 12:51 | EDPHYS ---
Physician Documentation [facility] Name: Lavonne Navarro Age: 22 yrs Sex: Female : 2000 Arrival Date: 08/30/2023 Time: 11:31 Bed 20 Private MD: ED Physician Rose Marie Mcpherson HPI: 08/30 11:58 This 22 yrs old Female presents to ER via Ambulatory with complaints of Shoulder Pain. kb 11:58 The patient or guardian complains of decreased range of motion, pain. right shoulder. kb Context: The problem was sustained at home, resulted from a fall, The patient experiences decreased range of motion, when rotates arm, The patient reports no obvious deformity. Onset: The symptoms/episode began/occurred 2 day(s) ago. Modifying factors: the symptoms are alleviated by nothing. The symptoms are aggravated by nothing. Associated signs and symptoms: The patient has no apparent associated signs or symptoms. Severity of symptoms: At their worst the symptoms were mild, moderate, in the emergency department the symptoms are unchanged. Treatment prior to arrival includes: no previous treatment. The patient has not experienced similar symptoms in the past. The patient has not recently seen a physician. Historical: - Allergies: 11:38 No Known Allergies; nj1 - Immunization history:: Adult Immunizations up to date. - Social history:: Smoking status: Patient denies any tobacco usage or history of. ROS: 11:54 Constitutional: Negative for fever, chills, and weight loss, kb 11:54 MS/extremity: Positive for pain, of the posterior aspect of right shoulder, 11:54 All other systems are negative, Exam: 11:54 Constitutional: This is a well developed, well nourished patient who is awake, alert, kb and in no acute distress. Head/Face: Normocephalic, atraumatic. ENT: Moist Mucous membranes Cardiovascular: Regular rate Respiratory: Respirations even and unlabored. No increased work of breathing. Talking in full sentences Abdomen/GI: Soft, non-tender. No distention Skin: Warm, dry with normal turgor. Normal color. Neuro: Awake and alert, GCS 15, oriented to person, place, time, and situation. Moves all extremities. Normal gait. 11:54 Musculoskeletal/extremity: Extremities: grossly normal except: noted in the posterior aspect of right shoulder: decreased ROM, pain, ROM: limited active range of motion due to pain, Circulation is intact in all extremities. Sensation intact. Vital Signs: 11:39 BP 98 / 76; Pulse 76; Resp 17; Temp 98; Pulse Ox 100% ; Pain 8/10; nj1 11:39 Pain Scale: Adult nj1 MDM: 11:35 Patient medically screened. kb 11:59 Differential diagnosis: Anterior dislocation with fracture, Anterior dislocation kb without fracture, Posterior dislocation with fracture, Posterior dislocation without fracture, humeral head fracture, strain, sprain, contusion. Data reviewed: vital signs, nurses notes. 12:50 Counseling: I had a detailed discussion with the patient and/or guardian regarding the kb historical points, exam findings, and any diagnostic results supporting the discharge/admit diagnosis, radiology results, the need for outpatient follow up, a family practitioner, to return to the emergency department if symptoms worsen or persist or if there are any questions or concerns that arise at home. 08/30 11:38 Order name: Shoulder Right (2 View) XRAY; Complete Time: 12:50 kb Administered Medications: 13:01 Drug: Ibuprofen PO 600 mg PO once Route: PO; nj1 13:13 Follow up: Response: No adverse reaction kc6 Disposition Summary: 08/30/23 12:51 Discharge Ordered Notes: Location: Home kb Condition: Stable kb Diagnosis - Pain in right shoulder kb Followup: kb - With: Emergency Department - When: As needed - Reason: Worsening of condition Followup: kb - With: Private Physician - When: 2 - 3 days - Reason: Recheck today's complaints, Continuance of care, Re-evaluation by your physician Discharge Instructions: - Discharge Summary Sheet kb - Shoulder Pain, Guhc-ne-Bcsr kb Forms: - Medication Reconciliation Form kb - Thank You Letter kb - Antibiotic Education kb - Prescription Opioid Use kb - Patient Portal Instructions kb - Leadership Thank You Letter kb Signatures: Dispatcher [employer] Cassidy Le, SHAY VALENTIN-Suma Moise RN RN nj1 Vibha Panda RN kc6
[2023-08-30] MEDS ORDERED: IBUPROFEN 200 MG TAB PO ONE (13:13)
[2023-08-30] MEDS ORDERED: IBUPROFEN 400 MG TAB ONE (13:13)
[2023-08-30 13:18] VITALS: BP 98/76; TEMP 98; O2SAT 100
== END 2023-08-30 13:13 | disposition home or self-care (01) ==
LOC: ER 11:31
DX: M25.511 Pain in right shoulder (principal)
CPT/HCPCS: 99283

== ENCOUNTER → 2023-11-03 | Emergency (ER) | payer SELFPAY ==
[~2023-11-03] MED LIST: CODEINE 30MG/APAP 300MG TAB ONE; DIPHENHYDRAMINE 25 MG TAB/CAP ONE; FAMOTIDINE 20 MG TAB ONE; IBUPROFEN 400 MG TAB ONE; predniSONE 20 MG TAB ONE
--- OUTSIDE RECORDS SUMMARY | 2023-11-03 20:40 | XMS REPORT | Continuity of Care Document ---
Author Name Unknown Address [address] [place] [address] [facility] thconnect Address [address] [place] [address] Care Team Providers Care Cut Off Saw Tender Metal Name Role Phone PCP, PATIENT DOES NOT HAVE A Primary Care Physic juan alberto Unavailable Marielle Rodriguez DO Attending Clinician MARIELLE RODRIGUEZ Attending Clinician Unavailab tamie MEDEIROS, DR ROBERTSON Attending Clinician Unavailable CHARO, DR FERNANDEZ Mehta Attending Clinician Radha CASTILLO, DR COBB Attending Clinician Pam DIALLO, DR MATA Attending Clinician Unavailable WALDEMAR, DR ROBERTSON Admitting Clinician Unavailable CHARO, DR FERNANDEZ Mehta Admitting Clinician Radha CASTILLO, DR COBB Admitting Clinician Pam DIALLO, DR MATA Admitting Clinician Unavailable Payers Payer Name Policy Type Policy Number Effective Date Expirati on Date Source 1000 [id number] 2018 00:00:00 Allergies, Adverse Reactions, Alerts Allergy Name Allergy Type Status Severity Reaction(s) Onset Date Inactive Date Treating Clinician Comments Source No Known Allergie s DA Active [facility] NO KNOWN ALLERGIE S Drug Class Active [facility] Social History Social Habit Start Date Stop Date Quantity Comments Source Sex Assigned At 2000 00:00:00 2000 00:00:00 [facility] Smoking Status Start Date Stop Date Source Tobacco smoking consumption unknown [facility] Medications Ordered Medication Name Filled Medication Name Start Date Stop Date Current Medication? Ordering Clinician Indication Dosage Frequency Signature (SIG) Comments Components Source ibuprofen (IBU) tablet 600 mg 05-07 07:30: 00 05-07 07:18 :00 No 600mg 600 mg, Oral, ONCE, 1 dose, On Wed05/07/23 at 0230, [place] [facility] cyclobenzap rine 10 mg tablet 05-07 00:00: 00 Yes [id number] 10mg Take 1 tablet by mouth 3 (three) times daily as needed for Muscle Spasms. [facility] Vital Signs Vital Name Observation Time Observation Value Comments S our Systolic blood pressure 2023-05-07 07:06:00 113 mm[Hg] [facility] Diastolic blood pressure 2023-05-07 07:06:00 72 mm[Hg] [facility] Heart rate 2023-05-07 07:06:00 84 /min [facility] Body temperature 2023-05-07 07:06:00 36.89 Juliette [facility] Respiratory rate 2023-05-07 07:06:00 16 /min [facility] Body height 2023-05-07 07:06:00 170.2 cm [facility] Body weight 2023-05-07 07:06:00 70.308 kg [facility] BMI 2023-05-07 07:06:00 24.28 kg/m2 [facility] Oxygen saturation in Arterial blood by Pulse oximetry 2023-05-07 07:06:00 98 /min [facility] Height 2022-03-03 19:27:00 172.72 CM Weight 2022-03-03 19:27:00 80.73 KG Weight 2022-02-25 03:44:00 77.11 KG Height 2022-02-25 03:34:00 142.24 CM Height 2022-01-08 19:28:00 170.18 CM Weight 2022-01-08 19:28:00 79.37 KG Height 2021-12-21 18:36:00 170.18 CM Weight 2021-12-21 18:36:00 70.3 KG Procedures Procedure Date / Time Performed Performing Clinicia n Source NOTICE OF PRIVACY PRACTICES 2023-05-07 07:02:45 Doctor Unassigned, [place] [facility] CONSENT/REFUSAL FOR DIAGNOSIS AND TREATMENT 2023-05-07 07:02:24 Doctor Unassigned, [place] [facility] Encounters Start Date/Time End Date/Time Encounter Type Admission Type Attending [facility] Care Facility Care Department Encounter ID Source 2023-05-07 02:04:00 2023-05-07 02:35:[address] [facility] [id number] [facility] 2023-05-07 02:04:00 2023-05-07 02:35:00 Emergency X MARIELLE RODRIGUEZ [facility] ERT [id number] [facility] 2022-03-03 19:14:00 2022-03-03 22:40:00 Outpatient E MARCELO MEDEIROS [facility] [id number] [facility] 2022-02-25 03:29:00 2022-02-25 04:30:00 Outpatient E FERNANDEZ MANCILLA [facility] [id number] [facility] 2022-01-08 19:07:00 2022-01-08 20:00:00 Outpatient E REZA CASTILLO [facility] [id number] [facility] 2021-12-21 18:25:00 2021-12-21 19:25:00 Outpatient E ADOLFO DIALLO [facility] [id number] [facility] Results Test Description Test Time Test Comments Results Resul t Comments Source CT NECK W/CONTRAST *OW* 2022-03-03 21:33:32 [facility] 2000 Sex: F Lo [...] Fabian Gray MD 03/03/2022 9:33 PM CDT CBC (INCLUDES AUTOMATED DIFFERENTIAL) *2022-03-03 20:37:00* Test Item Value Reference Range Interpretation Comme nts WBC (test code = WBC) 20.0 10\S\3/uL [...] = GMID%) 7.2 % 0.0-10.0 URINE OW2022-02-25 04:04:00* Test Item Value Reference Range Interpretation Comme nts PREG UR (test code = PGU) Negative NEGATIVE DIRECT STREP GROUP AOW2022-02-25 04:03:00* Test Item Value Reference Range Interpretation Comme nts Strep A Ag (test code = STREP) NEGATIVE NEGATIVE URINALYSIS W/O MICROSCOPICOW2022-02-25 04:02:00* Test Item Value Reference Range Interpretation Comme nts COLOR (test code = COLU) Yellow YELLOW CLARITY (test code = CLA) Cloudy CLEAR GLUCOSE UR (test code = UA GLUCOSE) Negative NEGATIVE BILI UR (test code = BILE) 1+ NEGATIVE A KETONES UR (test code = SABA) Negative NEGATIVE SP GRAVITY (test code = SPGR) >=1.030 1.005-1.030 PH UR (test code = PH) 5.5 4.5-8.0 PROTEIN UR (test code = PU) 1+ NEGATIVE A NITRITE UR (test code = NITRITE) Negative NEGATIVE UROBIL UR (test code = GUROQ) 1.0 E.U./dL UROBIL UR (test code = GUROQC) UROBILINOGEN REFERENCE RANGE 0.2 - 1.0 EU/dL BLOOD UR (test code = UA BLOOD) Trace-lysed NEGATIVE LEUK ES UR (test code = LEUK) Trace NEGATIVE INFLUENZA A AND B OW2022-02-25 04:02:00* Test Item Value Reference Range Interpretation Comme nts INFLUENZ A (test code = INFA) NEGATIVE NEGATIVE INFLUENZ B (test code = INFB) NEGATIVE NEGATIVE SARS-CoV (RAPID ANTIGEN) WH2022-02-25 04:01:00* Test Item Value Reference Range Interpretation Comme nts SARS-CoV (ANTIGEN) (test code = COVAG) NEGATIVE NEGATIVE COVID AG (test code = COVAGC) This test has been marketed under the FDA Emergency Use Authorization (EUA) to meet challenges of the COVID-19 pandemic. The validation standards normally enforced by the FDA and the College of the [place] [employer] (CAP) are more stringent than those required for this test. Therefore, the result should be interpreted with caution and close attention to other clinical and epidemiological data DIRECT STREP GROUP AOW2022-01-08 19:48:00* Test Item Value Reference Range Interpretation Comme nts Strep A Ag (test code = STREP) NEGATIVE NEGATIVE INFLUENZA A AND B OW2022-01-08 19:43:00* Test Item Value Reference Range Interpretation Comme nts INFLUENZ A (test code = INFA) NEGATIVE NEGATIVE INFLUENZ B (test code = INFB) NEGATIVE NEGATIVE SARS-CoV (RAPID ANTIGEN) WH2022-01-08 19:43:00* Test Item Value Reference Range Interpretation Comme nts SARS-CoV (ANTIGEN) (test code = COVAG) NEGATIVE NEGATIVE COVID AG (test code = COVAGC) This test has been marketed under the FDA Emergency Use Authorization (EUA) to meet challenges of the COVID-19 pandemic. The validation standards normally enforced by the FDA and the College of the [place] [employer] (CAP) are more stringent than those required for this test. Therefore, the result should be interpreted with caution and close attention to other clinical and epidemiological data XR CHEST 1 VIEW PORTABLE *OW*2022-01-08 19:31:03 [facility] 2000 Sex: FLocation code: [id number] 1 viewIndication: Fever.Comparison: NoneFindings:The heart and mediastinum are not remarkable.Costophrenic angles are clear. Elevation of left hemidiaphragm.Lungs are clear.Bone is unremarkable for age.Impression:1. No radiographic evidence of acute cardiopulmonary disease.Electronically signed by: Fabian Gray MD 01/08/2022 7:31 PM SCIENCE WRITER KNEE LEFT 3 VIEWS *OW*2021-12-21 19:17:09 [facility] : 2000 Sex: FEXAMINATION:XRKNEE LEFT 3 VIEWS *OW*CLINICAL INDICATION:Female, 21 years old with Traumatic injury; Unspecified fallCOMPARISON: NoneFINDINGS:Three view(s) of the knee obtained.Joint spaces: Anatomic.Bones: No acute fracture.Soft tissues: Unremarkable.IMPRESSION: No acute findings.Electronically signed by: Jun green MD 12/21/2021 7:17 PM [facility]
[2023-11-03 22:14] LABS: Absolute Lymphocytes (CBC) 1.4 K/uL (0.7-4.9); Lymphocytes % 16.7 % (15.3-44.8); MPV 9.5 fL (7.6-11.3); Platelets 238 thou/uL (152-406); RBC Red Blood Cell Count 4.67 M/uL (3.86-4.86)
[2023-11-03 22:33] LABS: Albumin 3.7 g/dL (3.4-5.0); Bilirubin Total 0.7 mg/dL (0.2-1.0); Potassium 3.8 mEq/L (3.5-5.1); Protein, Total 8.3 g/dL (6.4-8.2)
[2023-11-03 22:44] LABS: SARS-CoV-2 Antigen Rapid Res Negative (Negative)
[2023-11-03 23:04] LABS: Specific Gravity 1.013 (1.005-1.030)
[2023-11-03 23:06] LABS: Specific Gravity 1.013 (1.005-1.030); Urine Bacteria <20 /HPF (<20); Urine Bilirubin NEGATIVE (Negative); Urine Blood Negative (Negative); Urine Clarity Extremely Turbid (Clear); Urine Color Light-Yellow (Yellow); Urine Crystals Unidentified Few /HPF (None Seen); Urine Glucose NEGATIVE (Negative); Urine Mucus Slight /HPF (None Seen); Urine Protein NEGATIVE (Negative); Urine RBC <5 /HPF (None Seen); Urine Urobilinogen Normal (Normal); Urine pH 6.5 (5.0-7.0)
--- NOTE | 2023-11-03 23:35 | ER ---
Nurse's Notes [facility] Name: Lavonne Navarro Age: 23 yrs Sex: Female : 2000 Arrival Date: 11/03/2023 Time: 20:37 Bed 12 Private MD: Diagnosis: Other fatigue;Rash and other nonspecific skin eruption;Acute pharyngitis, acute generalized malaise and fatigue Presentation: 11/03 20:57 Chief complaint: Patient states: SORE THROAT, MALAISE AND CHILLS SINCE THIS AM. bp Coronavirus screen: At this time, the client does not indicate any symptoms associated with coronavirus-19. Ebola Screen: No symptoms or risks identified at this time. Initial Sepsis Screen: Does the patient meet any 2 criteria? HR > 90 bpm. No. Patient's initial sepsis screen is negative. Does the patient have a suspected source of infection? No. Patient's initial sepsis screen is negative. Risk Assessment: Do you want to hurt yourself or someone else? Patient reports no desire to harm self or others. Onset of symptoms was November 03, 2023. 20:57 Method Of Arrival: Ambulatory bp 20:57 Acuity: VALERIE 3 bp Triage Assessment: 21:00 General: Appears in no apparent distress. comfortable, Behavior is calm, cooperative. jw7 Pain: Complains of pain in throat Pain does not radiate. Pain currently is 7 out of 10 on a pain scale. Quality of pain is described as burning, Pain began suddenly, Is continuous. EENT: Throat is reddened. Neuro: Aviles Agitation-Sedation Scale (RASS): 0 - Alert and Calm Level of Consciousness is awake, alert, obeys commands, Oriented to person, place, time, situation. Cardiovascular: Capillary refill < 3 seconds Clubbing of nail beds is absent JVD is absent Patient's skin is warm and dry. 21:00 Respiratory: Airway is patent Trachea midline Respiratory effort is even, unlabored, jw7 Respiratory pattern is regular, symmetrical. GI: No deficits noted. No signs and/or symptoms were reported involving the gastrointestinal system. : No deficits noted. No signs and/or symptoms were reported regarding the genitourinary system. Derm: Skin is intact, is healthy with good turgor, Skin is dry, Skin is normal, Skin temperature is warm. Musculoskeletal: Circulation, motion, and sensation intact. Range of motion: intact in all extremities. Historical: - Allergies: 20:58 Aspirin; bp - Home Meds: 20:58 None [Active]; bp - PMHx: 20:58 None; bp - Immunization history:: Adult Immunizations up to date. - Social history:: Smoking status: Patient denies any tobacco usage or history of. - Family history:: not pertinent. Screenin:00 [facility] [place] ED Fall Risk Assessment (Adult) History of falling in the last 3 months, jw7 including since admission No falls in past 3 months (0 pts) Score/Fall Risk Level 0 - 2 = Low Risk Oriented to surroundings, Maintained a safe environment. Abuse screen: Denies threats or abuse. Denies injuries from another. Nutritional screening: No deficits noted. Tuberculosis screening: No symptoms or risk factors identified. Assessment: 21:00 General: see triage assessment. jw7 22:00 Reassessment: Patient appears in no apparent distress at this time. No changes from [facility] previously documented assessment. Patient and/or family updated on plan of care and expected duration. Pain level reassessed. Patient is alert, oriented x 3, equal unlabored respirations, skin warm/dry/pink. 23:00 Reassessment: Patient appears in no apparent distress at this time. No changes from [facility] previously documented assessment. Patient and/or family updated on plan of care and expected duration. Pain level reassessed. Patient is alert, oriented x 3, equal unlabored respirations, skin warm/dry/pink. 11/04 00:00 Reassessment: Patient appears in no apparent distress at this time. Patient and/or [facility] family updated on plan of care and expected duration. Pain level reassessed. Patient is alert, oriented x 3, equal unlabored respirations, skin warm/dry/pink. Patient states feeling better. Patient states symptoms have improved. Vital Signs: 11/03 20:57 BP 110 / 67; Pulse 110; Resp 16; Temp 97.8; Pulse Ox 99% ; Weight 72.57 kg; Height 5 bp ft. 7 in. ; 22:45 BP 100 / 70; Pulse 97; Resp 14 S; Pulse Ox 97% on R/A; jw7 11/04 00:30 BP 108 / 72; Pulse 90; Resp 16 S; Pulse Ox 98% on R/A; jw7 11/03 20:57 Body Mass Index 25.06 (72.57 kg, 170.18 cm) bp ED Course: 11/03 20:40 Patient arrived in ED. mr 20:50 Vern Ferguson MD is Attending Physician. sp4 20:58 Triage completed. bp 21:00 Patient has correct armband on for positive identification. Bed in low position. Call [facility] light in reach. Side rails up X 1. 21:30 Steffanie Cruz RN is Primary Nurse. jw 21:30 Initial lab(s) drawn, by ED staff, sent to lab. Inserted saline lock: 22 gauge in right [facility] antecubital area, using aseptic technique. Blood collected. 22:04 Influenza Screen (a \T\ B) Sent. jw7 22: SARS RAPID Sent. jw7 22: Arm band placed on. jw7 11/04 00:30 No provider procedures requiring assistance completed. IV discontinued, intact, jw7 bleeding controlled, No redness/swelling at site. Pressure dressing applied. 00:31 Provided Education on: discharge instructions. [facility] Administered Medications: 11/03 22: Drug: Acetaminophen-Codeine PO (300 mg-30 mg) 2 tabs PO once; RASS on ADMIN: Combtv4, jw7 Very Agttd3, Agttd2, Rstlss1, AlertClm0, Drwsy-1, Lt Sdtn-2, Mod Sdtn-3, Dp Sdtn-4, UnArsble-5 Route: PO; 11/04 00:31 Follow up: Response: No adverse reaction; Marked relief of symptoms 7 11/03 22: Drug: diphenhydrAMINE PO 25 mg PO once Route: PO; jw7 11/04 Follow up: Response: No adverse reaction 7 11/03 22: Drug: predniSONE PO 60 mg PO once Route: PO; jw7 11/04 Follow up: Response: No adverse reaction 7 11/03 22: Drug: Famotidine PO 20 mg PO once Route: PO; jw7 11/04 Follow up: Response: No adverse reaction; Marked relief of symptoms jw7 11/03 22: Drug: Ibuprofen PO 800 mg PO once Route: PO; jw7 11/04 Follow up: Response: No adverse reaction; Marked relief of symptoms jw7 Medication: 00:31 VIS not applicable for this client. jw7 Outcome: 11/03 23:35 Discharge ordered by . sp4 11/04 00:30 Discharged to home ambulatory, jw7 Condition: stable Discharge instructions given to patient, Instructed on discharge instructions, follow up and referral plans. medication usage, Demonstrated understanding of instructions, follow-up care, medications, Prescriptions given X 4, 00:32 Patient left the ED. jw7 Signatures: Gilda Dean, Nikhil Reg Bello Richards, RN RN Steffanie Ledbetter RN RN jw7 Vern Ferguson MD MD sp4
--- NOTE | 2023-11-03 23:35 | EDPHYS ---
Physician Documentation [facility] Name: Lavonne Navarro Age: 23 yrs Sex: Female : 2000 Arrival Date: 11/03/2023 Time: 20:37 Bed 12 Private MD: ED Physician Vern Ferguson HPI: 11/03 20:51 This 23 yrs old Female presents to ER via Unassigned with complaints of sp4 Fatigue. 21:57 23-year-old female woke up feeling unwell and had 11-12 today developed worsening sp4 fatigue sore throat and generalized malaise. Denied fever reported shaking chills. Historical: - Allergies: 20:58 Aspirin; bp - Home Meds: 20:58 None [Active]; bp - PMHx: 20:58 None; bp - Immunization history:: Adult Immunizations up to date. - Social history:: Smoking status: Patient denies any tobacco usage or history of. - Family history:: not pertinent. ROS: 21:57 Constitutional: Positive chills, positive fatigue, positive sore throat sp4 21:57 All other systems are negative, Exam: 21:57 Constitutional: This is a well developed, well nourished patient who is awake, alert, sp4 and in no acute distress. Head/Face: Normocephalic, atraumatic. Eyes: Pupils equal round and reactive to light, extra-ocular motions intact. Lids and lashes normal. Conjunctiva and sclera are not injected. Cornea within normal limits. Periorbital areas with no swelling, redness, or edema. ENT: Nares patent. No nasal discharge, no septal abnormalities noted. Tympanic membranes are normal and external auditory canals are clear. Oropharynx with no redness, swelling, or masses, exudates, or evidence of obstruction, uvula midline. Mucous membranes moist. Neck: Trachea midline, no thyromegaly or masses palpated, and no cervical lymphadenopathy. Supple, full range of motion without nuchal rigidity, or vertebral point tenderness. Chest/axilla: Normal chest wall appearance and motion. Nontender with no deformity. No lesions are appreciated. Cardiovascular: Regular rate and rhythm with a normal S1 and S2. No gallops, murmurs, or rubs. Normal PMI, no JVD. No pulse deficits. Respiratory: Lungs have equal breath sounds bilaterally, clear to auscultation and percussion. No rales, rhonchi or wheezes noted. No increased work of breathing, no retractions or nasal flaring. Abdomen/GI: Soft, non-tender, with normal bowel sounds. No distension or tympany. No guarding or rebound. No evidence of tenderness throughout. Back: No spinal tenderness. No costovertebral tenderness. Skin: Warm, dry with normal turgor. Normal color with no rashes, no lesions, and no evidence of cellulitis. MS/ Extremity: Pulses equal, no cyanosis. Neurovascular intact. Full, normal range of motion. Neuro: Awake and alert, GCS 15, oriented to person, place, time, and situation. Cranial nerves II-XII grossly intact. Motor strength 5/5 in all extremities. Sensory grossly intact. Psych: Awake, alert, with orientation to person, place and time. Behavior, mood, and affect are within normal limits Vital Signs: 20:57 BP 110 / 67; Pulse 110; Resp 16; Temp 97.8; Pulse Ox 99% ; Weight 72.57 kg; Height 5 bp ft. 7 in. ; 22:45 BP 100 / 70; Pulse 97; Resp 14 S; Pulse Ox 97% on R/A; jw7 11/04 00:30 BP 108 / 72; Pulse 90; Resp 16 S; Pulse Ox 98% on R/A; jw7 11/03 20:57 Body Mass Index 25.06 (72.57 kg, 170.18 cm) bp MDM: 11/03 20:52 Patient medically screened. [facility] 11/03 21:19 Order name: Test, Urine; Complete Time: 23:24 4 11/03 21:19 Order name: Urinalysis W/Microscopic; Complete Time: 23:24 4 11/03 21:19 Order name: SARS RAPID sp4 11/03 21:19 Order name: Influenza Screen (a \T\ B) [facility] 11/03 22:56 Order name: CBC with Automated Diff EDMS 11/03 22:56 Order name: Comprehensive Metabolic Panel EDMS Administered Medications: 22:04 Drug: Acetaminophen-Codeine PO (300 mg-30 mg) 2 tabs PO once; RASS on ADMIN: Combtv4, jw7 Very Agttd3, Agttd2, Rstlss1, AlertClm0, Drwsy-1, Lt Sdtn-2, Mod Sdtn-3, Dp Sdtn-4, UnArsble-5 Route: PO; 11/04 Follow up: Response: No adverse reaction; Marked relief of symptoms [facility] 11/03 22:04 Drug: diphenhydrAMINE PO 25 mg PO once Route: PO; 7 11/04 Follow up: Response: No adverse reaction [facility] 11/03 22: Drug: predniSONE PO 60 mg PO once Route: PO; 7 11/04 Follow up: Response: No adverse reaction [facility] 11/03 22: Drug: Famotidine PO 20 mg PO once Route: PO; 7 11/04 Follow up: Response: No adverse reaction; Marked relief of symptoms [facility] 11/03 22:04 Drug: Ibuprofen PO 800 mg PO once Route: PO; [facility] 11/04 Follow up: Response: No adverse reaction; Marked relief of symptoms [facility] Disposition Summary: 11/03/23 23:35 Discharge Ordered Problem: new sp4 Symptoms: have improved sp4 Condition: Stable sp4 Diagnosis - Other fatigue sp4 - Rash and other nonspecific skin eruption sp4 - Acute pharyngitis, acute generalized malaise and fatigue sp4 Followup: sp4 - With: Private Physician - When: 10 - 14 days - Reason: Recheck today's complaints Discharge Instructions: - Discharge Summary Sheet sp4 - Pharyngitis, Goum-bn-Hvkr sp4 Forms: - Patient Portal Instructions sp4 - Work release form 5 Prescriptions: - dextromethorphan-guaifenesin 10-200 mg Oral capsule - take 2 capsule ORAL route every 6 hours as needed for cough; 60 capsule; sp4 Refills: 0, Product Selection Permitted - naproxen 500 mg Oral tablet - take 1 tablet ORAL route 3 times per day PRN sore throat; 30 tablet; Refills: sp4 0, Product Selection Permitted - Benadryl 25 mg Oral capsule - take 1 capsule ORAL route every 8 hours As needed PRN for rash; 30 tablet; sp4 Refills: 0, Product Selection Permitted - Zithromax Z-Wally 250 mg Oral Tablet - take 1 tablet ORAL route as directed for 5 days Day 1 - take two (2) tablets sp4 one time. Day 2, 3, 4 , 5 take one (1) tablet once daily.; 6 tablet; Refills: 0, Product Selection Permitted Signatures: Dispatcher [employer] Bello Tinoco RN RN Steffanie Ledbetter RN RN jw7 Vern Ferguson MD MD sp4
[2023-11-04 01:28] VITALS: TEMP 97.8
[2023-11-04 01:33] VITALS: BP 108/72; O2SAT 98
== END ==
LOC: ER 20:37
DX: R53.83 Other fatigue (principal); R53.81 Other malaise; R21 Rash and other nonspecific skin eruption; J02.9 Acute pharyngitis, unspecified; Z11.52 Encounter for screening for COVID-19
CPT/HCPCS: 36415; 80053; 81001; 81025; 85025; 87804; 87811; 99284; J7512

== ENCOUNTER → 2023-11-10 | Emergency (ER) | payer SELFPAY ==
[~2023-11-10] MED LIST changes: -CODEINE 30MG/APAP 300MG TAB ONE; +CYCLOBENZAPRINE 10 MG TAB ONE; -DIPHENHYDRAMINE 25 MG TAB/CAP ONE; -FAMOTIDINE 20 MG TAB ONE; -IBUPROFEN 400 MG TAB ONE; +KETOROLAC 30 MG/ML INJ ONE; -predniSONE 20 MG TAB ONE
--- OUTSIDE RECORDS SUMMARY | 2023-11-10 21:17 | XMS REPORT | Continuity of Care Document ---
Author Name Unknown Address [address] [facility] [place] [address] [facility] thconnect Address [address] [facility] [address] [place] [address] Care Team Providers Care Quality Worker Name Role Phone PCP, PATIENT DOES NOT [...] Clinician Radha CASTILLO, DR COBB Admitting Clinician aPm DIALLO, DR MATA Admitting Clinician Unavailable Payers Payer Name Policy Type Policy Number Effective Date Expirati on Date Source 1000 [id number] 2018 00:00:00 Allergies, Adverse Reactions, Alerts Allergy Name Allergy Type Status Severity Reaction(s) Onset Date Inactive Date Treating Clinician Comments Source No Known Allergie s DA Active [facility] NO KNOWN ALLERGIE S Drug Class Active [facility] Social History Social Habit Start Date Stop Date Quantity Comments Source Sex Assigned At 2000 00:00:00 2000 00:00:00 [facility] Smoking Status Start Date Stop Date Source Tobacco smoking consumption unknown [facility] Medications Ordered Medication Name Filled Medication Name Start Date Stop Date Current Medication? Ordering Clinician Indication Dosage Frequency Signature (SIG) Comments Components Source ibuprofen (IBU) tablet 600 mg 05-07 07:30: 00 05-07 07:18 :00 No 600mg 600 mg, Oral, ONCE, 1 dose, On Wed05/07/23 at 0230, [place] [facility] cyclobenzap rine 10 mg tablet 05-07 00:00: 00 Yes [id number] 10mg Take 1 tablet by mouth 3 (three) times daily as needed for Muscle Spasms. [facility] Vital Signs Vital Name Observation Time Observation Value Comments S our Systolic blood pressure 2023-05-07 07:06:00 113 mm[Hg] [facility] Diastolic blood pressure 2023-05-07 07:06:00 72 mm[Hg] [facility] Heart rate 2023-05-07 07:06:00 84 /min [facility] Body temperature 2023-05-07 07:06:00 36.89 Juliette [facility] Respiratory rate 2023-05-07 07:06:00 16 /min [facility] Body height 2023-05-07 07:06:00 170.2 cm [facility] Body weight 2023-05-07 07:06:00 70.308 kg [facility] BMI 2023-05-07 07:06:00 24.28 kg/m2 [facility] Oxygen saturation in Arterial blood by Pulse oximetry 2023-05-07 07:06:00 98 /min [facility] Height 2022-03-03 19:27:00 172.72 CM Weight 2022-03-03 19:27:00 80.73 KG Weight 2022-02-25 03:44:00 77.11 KG Height 2022-02-25 03:34:00 142.24 CM Height 2022-01-08 19:28:00 170.18 CM Weight 2022-01-08 19:28:00 79.37 KG Height 2021-12-21 18:36:00 170.18 CM Weight 2021-12-21 18:36:00 70.3 KG Procedures Procedure Date / Time Performed Performing Clinicia n Source NOTICE OF PRIVACY PRACTICES 2023-05-07 07:02:45 Doctor Unassigned, [place] [facility] CONSENT/REFUSAL FOR DIAGNOSIS AND TREATMENT 2023-05-07 07:02:24 Doctor Unassigned, [place] [facility] Encounters Start Date/Time End Date/Time Encounter Type Admission Type Attending [facility] Care Department Encounter ID Source 2023-05-07 02:04:00 2023-05-07 02:35:00 Emergency Marielle Rodriguez [facility] [id number] [facility] 2023-05-07 02:04:00 2023-05-07 02:35:00 Emergency X MARIELLE RODRIGUEZ [facility] ERT [id number] [facility] 2022-03-03 19:14:00 2022-03-03 22:40:00 Outpatient E MARCELO MEDEIROS [facility] [id number] [facility] 2022-02-25 03:29:00 2022-02-25 04:30:00 Outpatient E FERNANDEZ MANCILLA [facility] [id number] [facility] 2022-01-08 19:07:00 2022-01-08 20:00:00 Outpatient E REZA CASTILLO [facility] [id number] [facility] 2021-12-21 18:25:00 2021-12-21 19:25:00 Outpatient E ADOLFO DIALLO [facility] [id number] [facility] Results Test Description Test Time Test Comments Results Resul t Comments Source CT NECK W/CONTRAST *OW* 2022-03-03 21:33:32 [facility] 2000 Sex: F Lo [...] the FDA and the College of the [employer] (CAP) are more stringent than those [...] the FDA and the College of the [employer] (CAP) are more stringent than those required for this test. Therefore, the result should be interpreted with caution and close attention to other clinical and epidemiological data XR CHEST 1 VIEW PORTABLE *OW*2022-01-08 19:31:03 [facility] 2000 Sex: FLocation code: [id number] 1 viewIndication: Fever.Comparison: NoneFindings:The heart and mediastinum are not remarkable.Costophrenic angles are clear. Elevation of left hemidiaphragm.Lungs are clear.Bone is unremarkable for age.Impression:1. 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
--- NOTE | 2023-11-10 23:55 | EDPHYS ---
Physician Documentation [facility] Name: Lavonne Navarro Age: 23 yrs Sex: Female : 2000 Arrival Date: 11/10/2023 Time: 21:13 Bed 29 Private MD: ED Physician Wilmer Celestin HPI: 11/11 00:08 This 23 yrs old Female presents to ER via Ambulatory with complaints of Shoulder Pain. sb4 00:08 The patient or guardian complains of pain, that is acute. left shoulder. Patient is sb4 complaining of pain in her left shoulder, she thinks that she may have torn or sprained something in her rotator cuff. She cannot think of any specific injury. She states that she has been trying to nurse that with rest and ibuprofen but is getting worse. Historical: - Allergies: 11/10 21:33 No Known Allergies; cm10 - PMHx: 21:33 None; cm10 - Immunization history:: Adult Immunizations up to date. - Social history:: Smoking status: Patient denies any tobacco usage or history of. ROS: 11/11 00:08 Constitutional: Negative for fever, chills, and weight loss, sb4 MS/extremity: Positive for pain, of the left shoulder, All other systems are negative, Exam: 00:08 Constitutional: This is a well developed, well nourished patient who is awake, alert, sb4 and in no acute distress. Head/Face: Normocephalic, atraumatic. Eyes: Extra-ocular motions intact. Periorbital areas with no swelling, redness, or edema. ENT: Mucous membranes moist. Skin: Warm, dry with normal turgor. Normal color with no rashes, no lesions, and no evidence of cellulitis. Neuro: Awake and alert, GCS 15, oriented to person, place, time, and situation. Motor strength 5/5 in all extremities. Sensory grossly intact. 00:08 Musculoskeletal/extremity: ROM: limited active range of motion due to pain, limited passive range of motion due to pain, Circulation is intact in all extremities. Pulses: are normal with no appreciated deficits, Perfusion: the extremity is normally perfused throughout, Sensation intact. Joints: the left shoulder displays painful range of motion, Vital Signs: 11/10 21:34 BP 94 / 72; Pulse 88; Resp 16; Temp 97.9; Pulse Ox 100% on R/A; Weight 78.47 kg; Height cm10 5 ft. 7 in. ; Pain 8/10; 21:34 Body Mass Index 27.10 (78.47 kg, 170.18 cm) cm10 21:34 Pain Scale: Adult cm10 MDM: 21:37 Patient medically screened. sb4 11/11 00:08 Differential diagnosis: tendonitis, Sprain, strain. Data reviewed: vital signs, nurses sb4 notes, radiologic studies, and as a result, I will discharge patient. Independent interpretation of the following test(s) in the Emergency Department X-Ray: My interpretation is My interpretation of the shoulder x-ray images no acute fracture or dislocation. Counseling: I had a detailed discussion with the patient and/or guardian regarding the historical points, exam findings, and any diagnostic results supporting the discharge/admit diagnosis, radiology results, the need for outpatient follow up, a orthopedic surgeon, to return to the emergency department if symptoms worsen or persist or if there are any questions or concerns that arise at home. 11/10 22:18 Order name: Shoulder Left (2 View) XRAY sb4 Administered Medications: 11/10 23:21 Drug: Ketorolac IM 30 mg IM once Route: IM; Site: right deltoid; jb4 23:21 Drug: Cyclobenzaprine PO 10 mg PO once Route: PO; jb4 Disposition Summary: 11/10/23 23:54 Discharge Ordered Notes: Location: Home sb4 Problem: new sb4 Symptoms: have improved sb4 Condition: Stable sb4 Diagnosis - Strain of muscle(s) and tendon(s) of the rotator cuff of left shoulder sb4 Followup: sb4 - With: Jhon Walker MD - When: As needed - Reason: Further diagnostic work-up Followup: sb4 - With: Compa Avalos MD - When: As needed - Reason: Further diagnostic work-up Followup: sb4 - With: Steven Perez MD - When: As needed - Reason: Further diagnostic work-up Discharge Instructions: - Discharge Summary Sheet sb4 - Shoulder Sprain sb4 Forms: - Medication Reconciliation Form sb4 - Thank You Letter sb4 - Antibiotic Education sb4 - Prescription Opioid Use sb4 - Patient Portal Instructions sb4 - Leadership Thank You Letter sb4 Prescriptions: - meloxicam 15 mg Oral tablet - take 1 tablet ORAL route daily; 10 tablet; Refills: 0, Product Selection sb4 Permitted - Cyclobenzaprine 10 mg Oral Tablet - take 1 tablet ORAL route every 8 hours As needed; 30 tablet; Refills: 0, sb4 Product Selection Permitted - Medrol (Wally) 4 mg Oral Tablets, Dose Pack - take 1 tablet ORAL route as directed - follow package instructions; 1 packet; sb4 Refills: 0, Product Selection Permitted Signatures: Dispatcher [employer] Jun Montoya RN RN jb4 Delores Garcia PASandraC PARenata gant4 Lawanda Barrientos RN RN cm10 Corrections: (The following items were deleted from the chart) 21:34 21:33 Allergies: Aspirin; cm10 cm10
--- NOTE | 2023-11-10 23:55 | ER ---
Nurse's Notes [facility] Name: Lavonne Navarro Age: 23 yrs Sex: Female : 2000 Arrival Date: 11/10/2023 Time: 21:13 Bed 29 Private MD: Diagnosis: Strain of muscle(s) and tendon(s) of the rotator cuff of left shoulder Presentation: 11/10 21:34 Chief complaint: Patient states: Left shoulder pain onset 11/07. Pt denies any trauma cm10 or injury. Coronavirus screen: Vaccine status: Patient reports receiving the 2nd dose of the covid vaccine. Client denies travel out of the [place] in the last 14 days. Ebola Screen: Patient denies travel to an Ebola-affected area in the 21 days before illness onset. No symptoms or risks identified at this time. Initial Sepsis Screen: Does the patient meet any 2 criteria? No. Patient's initial sepsis screen is negative. Does the patient have a suspected source of infection? No. Patient's initial sepsis screen is negative. Risk Assessment: Do you want to hurt yourself or someone else? Patient reports no desire to harm self or others. Onset of symptoms was November 07, 2023. 21:34 Acuity: VALERIE 4 cm10 21:34 Method Of Arrival: Ambulatory cm10 Historical: - Allergies: 21:33 No Known Allergies; cm10 - PMHx: 21:33 None; cm10 - Immunization history:: Adult Immunizations up to date. - Social history:: Smoking status: Patient denies any tobacco usage or history of. Screenin/28 00:09 [facility] ED Fall Risk Assessment (Adult) History of falling in the last 3 months, jb4 including since admission No falls in past 3 months (0 pts) Confusion or Disorientation No (0 pts). Abuse screen: Denies threats or abuse. Nutritional screening: No deficits noted. Tuberculosis screening: No symptoms or risk factors identified. Assessment: 00:07 General: Appears in no apparent distress. comfortable, Behavior is calm, cooperative, jb4 appropriate for age. Pain: Complains of pain in left shoulder Noted to be Laughing and playing on the phone. Neuro: Level of Consciousness is awake, alert, obeys commands, Oriented to person, place, time, situation. Cardiovascular: Patient's skin is warm and dry. Respiratory: Airway is patent Respiratory effort is even, unlabored, Respiratory pattern is regular, symmetrical. GI: No signs and/or symptoms were reported involving the gastrointestinal system. : No signs and/or symptoms were reported regarding the genitourinary system. EENT: No signs and/or symptoms were reported regarding the EENT system. Derm: Skin is intact, Skin is pink, warm \T\ dry. Vital Signs: 11/10 21:34 BP 94 / 72; Pulse 88; Resp 16; Temp 97.9; Pulse Ox 100% on R/A; Weight 78.47 kg; Height cm10 5 ft. 7 in. ; Pain 8/10; 21:34 Body Mass Index 27.10 (78.47 kg, 170.18 cm) cm10 21:34 Pain Scale: Adult cm10 ED Course: 21:16 Patient arrived in ED. gm2 21:25 Delores Garcia PA-C is PHCP. sb4 21:25 Wilmer Celestin MD is Attending Physician. sb4 21:35 Triage completed. cm10 21:35 Arm band placed on Patient placed in waiting room. cm10 22:59 Shoulder Left (2 View) XRAY In Process Unspecified. EDMS 23:54 Jhon Walker MD is Referral Physician. sb4 23:54 Compa Avalos MD is Referral Physician. sb4 23:54 Steven Perez MD is Referral Physician. sb4 11/11 00:07 Patient has correct armband on for positive identification. jb4 00:07 No provider procedures requiring assistance completed. Patient did not have IV access jb4 during this emergency room visit. Administered Medications: 11/10 23:21 Drug: Ketorolac IM 30 mg IM once Route: IM; Site: right deltoid; jb4 23:21 Drug: Cyclobenzaprine PO 10 mg PO once Route: PO; jb4 Medication: 11/11 00:07 VIS not applicable for this client. jb4 Outcome: 11/10 23:54 Discharge ordered by . sb4 11/11 00:07 Discharged to home ambulatory, jb4 Condition: stable Discharge instructions given to patient, Instructed on discharge instructions, follow up and referral plans. medication usage, Demonstrated understanding of instructions, follow-up care, medications, Prescriptions given X 3, 00:09 Patient left the ED. jb4 Signatures: Dispatcher [employer] EDMS Ravin, Jun, RN RN jb4 Delores Garcia PA-C PARenata gant4 Lawanda Barrientos RN RN cm10 Jody Dang gm2 Corrections: (The following items were deleted from the chart) 11/10 21:34 21:33 Allergies: Aspirin; cm10 cm10
[2023-11-11 05:40] VITALS: BP 94/72; TEMP 97.9; O2SAT 100
--- NOTE | 2023-11-11 15:22 | RAD REPORT ---
EXAM DESCRIPTION: RAD - Shoulder Left 2 View - 11/10/2023 10:57 pm CLINICAL HISTORY: The patient is 23 years old and is Female; PAIN TECHNIQUE: Two or more views of the left shoulder. COMPARISON: No relevant prior studies available. FINDINGS: Bones/joints: Unremarkable. No acute fracture. No dislocation. Soft tissues: Unremarkable. Other findings: Elevation of the left hemidiaphragm with gaseous distention of the stomach or bow el. IMPRESSION: No acute fracture or dislocation. 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 The interpreting radiologist is fully responsible for the content of the report.
== END ==
LOC: ER 21:13
DX: S46.012A Strain of muscle(s) and tendon(s) of the rotator cuff of left shoulder, initial encounter (principal)

== ENCOUNTER → 2023-11-29 | Emergency (ER) | payer SELFPAY ==
[~2023-11-29] MED LIST changes: -CYCLOBENZAPRINE 10 MG TAB ONE; -KETOROLAC 30 MG/ML INJ ONE; +NYSTATIN/TRIAMCIN OINT 15 GM TOP ONE
--- OUTSIDE RECORDS SUMMARY | 2023-11-29 11:44 | XMS REPORT | Continuity of Care Document ---
Author Name Unknown Address [address] [place] [address] [facility] thconnect Address [address] [place] [address] Care Team Providers Care Branch Operation Evaluation Manager Name Role Phone PCP, PATIENT DOES NOT HAVE A Primary Care Physic juan alberto Unavailable Marielle Rodriguez DO Attending Clinician [phone] MARIELLE RODRIGUEZ Attending Clinician Unavailab tamie MEDEIROS, DR ROBERTSON Attending Clinician Unavailable CHARO, DR FERNANDEZ Mehta Attending Clinician Radha CASTILLO, DR COBB Attending Clinician Pam DIALLO, DR MATA Attending Clinician Unavailable WALDEMAR, DR RBOERTSON Admitting Clinician Unavailable CHARO, DR FERNANDEZ Mehta Admitting Clinician Radha CASTILLO, DR COBB Admitting Clinician Pam DIALLO, DR MATA Admitting Clinician Unavailable Payers Payer Name Policy Type Policy Number Effective Date Expirati on Date Source 1000 [id number] 2018 00:00:00 Allergies, Adverse Reactions, Alerts Allergy Name Allergy Type Status Severity Reaction(s) Onset Date Inactive Date Treating Clinician Comments Source No Known Allergie s DA Active [facility] NO KNOWN ALLERGIE S Drug Class Active [facility] Social History Social Habit Start Date Stop Date Quantity Comments Source Sex Assigned At 2000 00:00:00 2000 00:00:00 [facility] Smoking Status Start Date Stop Date Source Tobacco smoking consumption unknown [facility] Medications Ordered Medication Name Filled Medication Name Start Date Stop Date Current Medication? Ordering Clinician Indication Dosage Frequency Signature (SIG) Comments Components Source ibuprofen (IBU) tablet 600 mg 05-07 07:30: 00 05-07 07:18 :00 No 600mg 600 mg, Oral, ONCE, 1 dose, On Wed05/07/23 at 0230, [place] [facility] cyclobenzap rine 10 mg tablet 05-07 00:00: 00 Yes [id number] 10mg Take 1 tablet by mouth 3 (three) times daily as needed for Muscle Spasms. [facility] Vital Signs Vital Name Observation Time Observation Value Comments S our Systolic blood pressure 2023-05-07 07:06:00 113 mm[Hg] [facility] Diastolic blood pressure 2023-05-07 07:06:00 72 mm[Hg] [facility] Heart rate 2023-05-07 07:06:00 84 /min [facility] Body temperature 2023-05-07 07:06:00 36.89 Juliette [facility] Respiratory rate 2023-05-07 07:06:00 16 /min [facility] Body height 2023-05-07 07:06:00 170.2 cm [facility] Body weight 2023-05-07 07:06:00 70.308 kg [facility] BMI 2023-05-07 07:06:00 24.28 kg/m2 [facility] Oxygen saturation in Arterial blood by Pulse oximetry 2023-05-07 07:06:00 98 /min [facility] Height 2022-03-03 19:27:00 172.72 CM Weight 2022-03-03 19:27:00 80.73 KG Weight 2022-02-25 03:44:00 77.11 KG Height 2022-02-25 03:34:00 142.24 CM Height 2022-01-08 19:28:00 170.18 CM Weight 2022-01-08 19:28:00 79.37 KG Height 2021-12-21 18:36:00 170.18 CM Weight 2021-12-21 18:36:00 70.3 KG Procedures Procedure Date / Time Performed Performing Clinicia n Source NOTICE OF PRIVACY PRACTICES 2023-05-07 07:02:45 Doctor Unassigned, Ericson [facility] CONSENT/REFUSAL FOR DIAGNOSIS AND TREATMENT 2023-05-07 07:02:24 Doctor Unassigned, Ericson [facility] Encounters Start Date/Time End Date/Time Encounter Type Admission Type Attending [facility] Care Facility Care Department Encounter ID Source 2023-05-07 02:04:00 2023-05-07 02:35:00 Emergency Marielle Rodriguez [facility] [id number] [facility] 2023-05-07 02:04:00 2023-05-07 02:35:00 Emergency X MARIELLE RODRIGUEZ [facility] ERT [id number] [facility] 2022-03-03 19:14:00 2022-03-03 22:40:00 Outpatient E MARCELO MEDEIROS [facility] [id number] [facility] 2022-02-25 03:29:00 2022-02-25 04:30:00 Outpatient E FERNANDEZ MANCILLA [facility] [id number] [facility] 2022-01-08 19:07:00 2022-01-08 20:00:00 Outpatient E REZA CASTILLO [facility] [id number] [facility] 2021-12-21 18:25:00 2021-12-21 19:25:00 Outpatient E ADOLFO DIALLO [facility] [id number] [facility] Results Test Description Test Time Test Comments Results Resul t Comments Source CT NECK W/CONTRAST *OW* 2022-03-03 21:33:32 [facility] 2000 [...] the FDA and the [employer] of the [place] [employer] (CAP) are more stringent than those [...] the FDA and the [employer] [place] [employer] (CAP) are more stringent than those required for this test. Therefore, the result should be interpreted with caution and close attention to other clinical and epidemiological data XR CHEST 1 VIEW PORTABLE *OW*2022-01-08 19:31:03 [facility] 2000 Sex: FLocation code: [id number] 1 viewIndication: Fever.Comparison: NoneFindings:The heart and mediastinum are not remarkable.Costophrenic angles are clear. Elevation of left hemidiaphragm.Lungs are clear.Bone is unremarkable for age.Impression:1. 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
--- NOTE | 2023-11-29 12:09 | ER ---
Nurse's Notes [facility] Name: Lavonne Navarro Age: 23 yrs Sex: Female : 2000 Arrival Date: 11/29/2023 Time: 11:41 Bed 13 Private MD: Diagnosis: Dermatitis, unspecified Presentation: 11/29 11:49 Chief complaint: Patient states: rash to right groin that it's itchy x 1 month ago. Pt aa5 states "they told me it was ringworm but it's not getting better". 11:49 Coronavirus screen: At this time, the client does not indicate any symptoms associated aa5 with coronavirus-19. Ebola Screen: Patient denies travel to an Ebola-affected area in the 21 days before illness onset. Initial Sepsis Screen: Does the patient meet any 2 criteria? No. Patient's initial sepsis screen is negative. Does the patient have a suspected source of infection? No. Patient's initial sepsis screen is negative. Risk Assessment: Do you want to hurt yourself or someone else? Patient reports no desire to harm self or others. Onset of symptoms was November 2023. 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 - Social history:: Smoking status: Patient denies any tobacco usage or history of. - Family history:: not pertinent. Screenin:50 [facility] ED Fall Risk Assessment (Adult) History of falling in the last 3 months, mb9 including since admission No falls in past 3 months (0 pts) Confusion or Disorientation No (0 pts) Intoxicated or Sedated No (0 pts) Impaired Gait No (0 pts) Mobility Assist Device Used No (0 pt) Altered Elimination No (0 pt) Score/Fall Risk Level 0 - 2 = Low Risk Oriented to surroundings, Maintained a safe environment, Educated pt \\T\\ family on fall prevention, incl call for assistance when getting out of bed. Abuse screen: Denies threats or abuse. Nutritional screening: No deficits noted. Tuberculosis screening: No symptoms or risk factors identified. Assessment: 11:57 General: Appears in no apparent distress. Behavior is calm, cooperative. Pain: Denies mb9 pain. Neuro: Aviles Agitation-Sedation Scale (RASS): 0 - Alert and Calm Level of Consciousness is awake, alert, obeys commands, Oriented to person, place, time, situation, Appropriate for age. Cardiovascular: No deficits noted. Respiratory: No deficits noted. GI: No signs and/or symptoms were reported involving the gastrointestinal system. : No signs and/or symptoms were reported regarding the genitourinary system. EENT: No signs and/or symptoms were reported regarding the EENT system. Derm: Rash noted that is red, raised, on pelvis and right leg. Musculoskeletal: Range of motion: intact in all extremities. Vital Signs: 11:49 BP 106 / 70; Pulse 84; Resp 16 S; Temp 98.5(O); Pulse Ox 97% on R/A; Weight 78.93 kg aa5 (R); Height 5 ft. 7 in. (R); 11:49 Body Mass Index 27.25 (78.93 kg, 170.18 cm) aa5 ED Course: 11:44 Patient arrived in ED. im 11:47 Wilmer Celestin MD is Attending Physician. [facility] 11:50 Gilda Jolly, KIARRA is Primary Nurse. mb9 11:50 Arm band placed on. mb9 11:55 Triage completed. aa5 11:58 Placed in gown. Bed in low position. Call light in reach. Side rails up X 1. Client mb9 placed on continuous cardiac and pulse oximetry monitoring. NIBP monitoring applied. 11:58 No provider procedures requiring assistance completed. mb9 12:06 Patient did not have IV access during this emergency room visit. mb9 Administered Medications: 12:14 Drug: Nystatin-Triamcinolone Topical Cream 1 application Topical once Route: Topical; mb9 Site: affected area; Medication: 11:50 VIS not applicable for this client. mb9 Outcome: 12:09 Discharge ordered by . karla 12:20 Discharged to home ambulatory, mb9 12:20 Condition: stable 12:20 Discharge instructions given to patient, Instructed on discharge instructions, follow up and referral plans. Demonstrated understanding of instructions, follow-up care, medications, Prescriptions given X 1, 12:21 Patient left the ED. mb9 Signatures: Wilmer Celestin MD MD cha Calderon, Audri RN RN aa5 Gilda Jolly RN RN mb9 Stacia Dubois
--- NOTE | 2023-11-29 12:09 | EDPHYS ---
Physician Documentation [facility] Name: Lavonne Navarro Age: 23 yrs Sex: Female : 2000 Arrival Date: 11/29/2023 Time: 11:41 Bed 13 Private MD: ED Physician Wilmer Celestin HPI: 11/29 12:01 This 23 yrs old Female presents to ER via Ambulatory with complaints of Rash karla - on leg. 12:01 The patient's rash thought to be caused by Dermatitis. The rash is located on the right karla hip. The rash can be described as erythematous, patchy. Onset: The symptoms/episode began/occurred 1 month(s) ago. Associated signs and symptoms: Pertinent positives: burning sensation. Severity of symptoms: At their worst the symptoms were mild in the emergency department the symptoms are unchanged. Treatment given at home: NOTHING. The patient has not experienced similar symptoms in the past. 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 - Social history:: Smoking status: Patient denies any tobacco usage or history of. - Family history:: not pertinent. ROS: 12:01 Constitutional: Negative for fever, chills, and weight loss, Eyes: Negative for injury, karla pain, redness, and discharge, ENT: Negative for injury, pain, and discharge, Neck: Negative for injury, pain, and swelling, Cardiovascular: Negative for chest pain, palpitations, and edema, Respiratory: Negative for shortness of breath, cough, wheezing, and pleuritic chest pain, Abdomen/GI: Negative for abdominal pain, nausea, vomiting, diarrhea, and constipation, Back: Negative for injury and pain, : Negative for injury, bleeding, discharge, and swelling, MS/Extremity: Negative for injury and deformity, Neuro: Negative for headache, weakness, numbness, tingling, and seizure, Psych: Negative for depression, anxiety, suicide ideation, homicidal ideation, and hallucinations, Allergy/Immunology: Negative for hives, rash, and allergies, Endocrine: Negative for neck swelling, polydipsia, polyuria, polyphagia, and marked weight changes, Hematologic/Lymphatic: Negative for swollen nodes, abnormal bleeding, and unusual bruising, 12:01 Skin: Positive for erythema, lesions, rash, of the right inner thigh, Exam: 12:01 Constitutional: This is a well developed, well nourished patient who is awake, alert, karla and in no acute distress. Head/Face: Normocephalic, atraumatic. Eyes: Pupils equal round and reactive to light, extra-ocular motions intact. Lids and lashes normal. Conjunctiva and sclera are non-icteric and not injected. Cornea within normal limits. Periorbital areas with no swelling, redness, or edema. ENT: Nares patent. No nasal discharge, no septal abnormalities noted. Tympanic membranes are normal and external auditory canals are clear. Oropharynx with no redness, swelling, or masses, exudates, or evidence of obstruction, uvula midline. Mucous membranes moist. Neck: Trachea midline, no thyromegaly or masses palpated, and no cervical lymphadenopathy. Supple, full range of motion without nuchal rigidity, or vertebral point tenderness. No Meningismus. Chest/axilla: Normal chest wall appearance and motion. Nontender with no deformity. No lesions are appreciated. Cardiovascular: Regular rate and rhythm with a normal S1 and S2. No gallops, murmurs, or rubs. Normal PMI, no JVD. No pulse deficits. Respiratory: Lungs have equal breath sounds bilaterally, clear to auscultation and percussion. No rales, rhonchi or wheezes noted. No increased work of breathing, no retractions or nasal flaring. Abdomen/GI: Soft, non-tender, with normal bowel sounds. No distension or tympany. No guarding or rebound. No evidence of tenderness throughout. Back: No spinal tenderness. No costovertebral tenderness. Full range of motion. MS/ Extremity: Pulses equal, no cyanosis. Neurovascular intact. Full, normal range of motion. Neuro: Awake and alert, GCS 15, oriented to person, place, time, and situation. Cranial nerves II-XII grossly intact. Motor strength 5/5 in all extremities. Sensory grossly intact. Cerebellar exam normal. Normal gait. Psych: Awake, alert, with orientation to person, place and time. Behavior, mood, and affect are within normal limits. 12:01 Skin: rash can be described as erythematous, nonspecific, raised, FUNGAL, Vital Signs: 11:49 BP 106 / 70; Pulse 84; Resp 16 S; Temp 98.5(O); Pulse Ox 97% on R/A; Weight 78.93 kg aa5 (R); Height 5 ft. 7 in. (R); 11:49 Body Mass Index 27.25 (78.93 kg, 170.18 cm) aa5 MDM: 11:[address] [facility] 12:08 Differential diagnosis: impetigo, varicella, allergic reaction. Data reviewed: vital [facility] signs, nurses notes. Consideration of Admission/Observation Escalation of care including admission/observation considered. I considered the following discharge prescriptions or medication management in the emergency department Medications were administered in the Emergency Department. See MAR. Test considered but Not performed: Labs: NO LABS. Care significantly affected by the following chronic conditions: NO HX. Administered Medications: 12:14 Drug: Nystatin-Triamcinolone Topical Cream 1 application Topical once Route: Topical; mb9 Site: affected area; Disposition Summary: 11/29/23 12:09 Discharge Ordered Notes: Location: Home [facility] Problem: [facility] Symptoms: have improved karla Condition: Stable [facility] Diagnosis - Dermatitis, unspecified karla Followup: karla - With: Private Physician - When: 2 - 3 days - Reason: Recheck today's complaints, Continuance of care, Re-evaluation by your physician Discharge Instructions: - Discharge Summary Sheet [facility] - Rash, Adult karla - Rash, Adult, [id number] [facility] Forms: - Medication Reconciliation Form [facility] - Thank You Letter [facility] - Antibiotic Education [facility] - Prescription Opioid Use [facility] - Patient Portal Instructions [facility] - Leadership Thank You Letter [facility] Prescriptions: - Nystatin-Triamcinolone 100,000-0.1 unit/g-% Topical cream - apply 1 application TOPICAL route 2 times per day; 30 gram; Refills: 0, Product [facility] Selection Permitted Signatures: Wimler Celestin MD MD cha Calderon, Audri RN RN aa5 Gilda Jolly RN RN mb9
[2023-11-29 12:47] VITALS: BP 106/70; TEMP 98.5; O2SAT 97
== END ==
LOC: ER 11:41
DX: L30.9 Dermatitis, unspecified (principal)
CPT/HCPCS: 99283

== ENCOUNTER → 2024-01-28 | Emergency (ER) | payer SELFPAY ==
[~2024-01-28] MED LIST changes: +AMOX/K CLAV 875 MG TAB ONE; -NYSTATIN/TRIAMCIN OINT 15 GM TOP ONE
--- OUTSIDE RECORDS SUMMARY | 2024-01-28 21:38 | XMS REPORT | Continuity of Care Document ---
Author Name Unknown Address [address] [facility]. [address] [place] [address] [facility] thconnect Address [address] [facility] [address] [place] [address] Care Team Providers Care Clinical Staff Rn Name Role Phone PCP, PATIENT DOES NOT [...] Effective Date Expirati on Date Source 1000 [id number] 2018 00:00:00 Allergies, Adverse Reactions, Alerts Allergy Name Allergy Type Status Severity Reaction(s) Onset Date Inactive Date Treating Clinician Comments Source No Known Allergie s DA Active [facility] NO KNOWN ALLERGIE S Drug Class Active [facility] Social History Social Habit Start Date Stop Date Quantity Comments Source Sex Assigned At 2000 00:00:00 2000 00:00:00 [facility] Smoking Status Start Date Stop Date Source Tobacco smoking consumption unknown [facility] Medications Ordered Medication Name Filled Medication Name Start Date Stop Date Current Medication? Ordering Clinician Indication Dosage Frequency Signature (SIG) Comments Components Source ibuprofen (IBU) tablet 600 mg 05-07 07:30: 00 05-07 07:18 :00 No 600mg 600 mg, Oral, ONCE, 1 dose, On Wed05/07/23 at 0230, [place] [facility] cyclobenzap rine 10 mg tablet 05-07 00:00: 00 Yes [id number] 10mg Take 1 tablet by mouth 3 (three) times daily as needed for Muscle Spasms. [facility] Vital Signs Vital Name Observation Time Observation Value Comments S our Systolic blood pressure 2023-05-07 07:06:00 113 mm[Hg] [facility] Diastolic blood pressure 2023-05-07 07:06:00 72 mm[Hg] [facility] Heart rate 2023-05-07 07:06:00 84 /min [facility] Body temperature 2023-05-07 07:06:00 36.89 Juliette [facility] Respiratory rate 2023-05-07 07:06:00 16 /min [facility] Body height 2023-05-07 07:06:00 170.2 cm [facility] Body weight 2023-05-07 07:06:00 70.308 kg [facility] BMI 2023-05-07 07:06:00 24.28 kg/m2 [facility] Oxygen saturation in Arterial blood by Pulse oximetry 2023-05-07 07:06:00 98 /min [facility] Height 2022-03-03 19:27:00 172.72 CM Weight 2022-03-03 19:27:00 80.73 KG Weight 2022-02-25 03:44:00 77.11 KG Height 2022-02-25 03:34:00 142.24 CM Height 2022-01-08 19:28:00 170.18 CM Weight 2022-01-08 19:28:00 79.37 KG Height 2021-12-21 18:36:00 170.18 CM Weight 2021-12-21 18:36:00 70.3 KG Procedures Procedure Date / Time Performed Performing Clinicia n Source NOTICE OF PRIVACY PRACTICES 2023-05-07 07:02:45 Doctor Unassigned, [place] [facility] CONSENT/REFUSAL FOR DIAGNOSIS AND TREATMENT 2023-05-07 07:02:24 Doctor Unassigned, [place] [facility] Encounters Start Date/Time End Date/Time Encounter Type Admission Type Attending [facility] Care Facility Care Department Encounter ID Source 2023-05-07 02:04:00 2023-05-07 02:35:00 Emergency Marielle Rodriguez [facility] [id number] [facility] 2023-05-07 02:04:00 2023-05-07 02:35:00 Emergency X MARIELLE RODRIGUEZ [facility] ERT [id number] [facility] 2022-03-03 19:14:00 2022-03-03 22:40:00 Outpatient E MARCELO MEDEIROS [facility] [id number] [facility] 2022-02-25 03:29:00 2022-02-25 04:30:00 Outpatient E FERNANDEZ MANCILLA [facility] [id number] [facility] 2022-01-08 19:07:00 2022-01-08 20:00:00 Outpatient E REZA CASTILLO [facility] [id number] [facility] 2021-12-21 18:25:00 2021-12-21 19:25:00 Outpatient E ADOLFO DIALLO [facility] [id number] [facility] Results Test Description Test Time Test Comments Results Resul t Comments Source CT NECK W/CONTRAST *OW* 2022-03-03 21:33:32 [facility] 2000 Sex: F Lo [...] the FDA and the College of the [employer] (CAP) are more stringent than those [...] the FDA and the [employer] (CAP) are more stringent than those required for this test. Therefore, the result should be interpreted with caution and close attention to other clinical and epidemiological data XR CHEST 1 VIEW PORTABLE *OW*2022-01-08 19:31:03 [facility] 2000 Sex: FLocation code: [id number] 1 viewIndication: Fever.Comparison: NoneFindings:The heart and mediastinum are not remarkable.Costophrenic angles are clear. Elevation of left hemidiaphragm.Lungs are clear.Bone is unremarkable for age.Impression:1. 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
[2024-01-28 22:29] LABS: SARS-CoV-2 Antigen CONTROL BLUE LINE VIS/BG OK; SARS-CoV-2 Antigen Rapid Res Negative (Negative)
--- NOTE | 2024-01-28 22:47 | ER ---
Nurse's Notes [facility] Name: Lavonne Navarro Age: 23 yrs Sex: Female : 2000 Arrival Date: 01/28/2024 Time: 21:36 Bed 11 Private MD: Diagnosis: Streptococcal pharyngitis Presentation: 01/27 21:43 Chief complaint: Patient states: Pt c/o right ear pain x 10 days, sore throat x 4-5 tl4 days, and cough, fatigue since last night. Coronavirus screen: congestion, cough unrelated to allergies, fatigue, sore throat. Ebola Screen: No symptoms or risks identified at this time. Initial Sepsis Screen: Does the patient meet any 2 criteria? No. Patient's initial sepsis screen is negative. Does the patient have a suspected source of infection? No. Patient's initial sepsis screen is negative. Risk Assessment: Do you want to hurt yourself or someone else? Patient reports no desire to harm self or others. Onset of symptoms was January 27, 2024. 21:43 Method Of Arrival: Ambulatory tl4 21:43 Acuity: VALERIE 4 tl4 Triage Assessment: 21:45 General: Appears ill, Behavior is calm, cooperative. Pain: Complains of pain in right tl4 ear and throat. EENT: Reports nasal congestion pain in throat and left ear. Neuro: No deficits noted. Cardiovascular: No deficits noted. Respiratory: Reports cough that is. GI: No deficits noted. No signs and/or symptoms were reported involving the gastrointestinal system. : No deficits noted. No signs and/or symptoms were reported regarding the genitourinary system. Derm: No deficits noted. No signs and/or symptoms reported regarding the dermatologic system. Musculoskeletal: No deficits noted. No signs and/or symptoms reported regarding the musculoskeletal system. 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 - Social history:: Smoking status: Patient denies any tobacco usage or history of. Screenin:56 [facility] ED Fall Risk Assessment (Adult) History of falling in the last 3 months, tl4 including since admission No falls in past 3 months (0 pts) Confusion or Disorientation No (0 pts) Intoxicated or Sedated No (0 pts) Impaired Gait No (0 pts) Mobility Assist Device Used No (0 pt) Altered Elimination No (0 pt) Score/Fall Risk Level 0 - 2 = Low Risk Oriented to surroundings, Maintained a safe environment, Educated pt \T\ family on fall prevention, incl call for assistance when getting out of bed, Assessed \T\ reinforced patient's understanding of fall precautions, Hourly rounding (assess needs \T\ fall precautionary measures) done, Used ambulatory aids as needed (educated on \T\ assisted with), Used gait belt as appropriate. Abuse screen: Denies threats or abuse. Denies injuries from another. Nutritional screening: No deficits noted. Tuberculosis screening: No symptoms or risk factors identified. Assessment: 21:57 Respiratory: Airway is patent Respiratory effort is even, unlabored, Breath sounds are tl4 clear bilaterally. EENT: Throat is reddened. 23:35 Reassessment: No changes from previously documented assessment. Patient and/or family tl4 updated on plan of care and expected duration. Pain level reassessed. Patient is alert, oriented x 3, equal unlabored respirations, skin warm/dry/pink. Vital Signs: 21:43 BP 109 / 57; Pulse 105; Resp 16; Temp 97.8(TE); Pulse Ox 100% ; Pain 8/10; tl4 23:33 BP 115 / 67; Pulse 98; Resp 16; Temp 98.1(O); Pulse Ox 99% on R/A; Pain 10/10; tl4 21:43 Pain Scale: Adult tl4 23:33 Pain Scale: Adult tl4 ED Course: 21:38 Patient arrived in ED. hb 21:40 Cassidy Arteaga FNP-C is [facility]. kb 21:40 Vern Ferguson MD is Attending Physician. kb 21:45 Triage completed. tl4 21:46 Arm band placed on right wrist. tl4 21:55 SARS-COV-2 Antigen Rapid Sent. tl4 21:56 Strep Sent. tl4 21:56 Flu Sent. tl4 21:57 Patient has correct armband on for positive identification. Bed in low position. Call tl4 light in reach. Side rails up X 1. Provided Education on: ed process. Door closed. Noise minimized. Moved to private room. 21:57 No provider procedures requiring assistance completed. Patient did not have IV access tl4 during this emergency room visit. Administered Medications: 23:33 Drug: Amoxicillin-Clavulanate PO 875 mg PO once Route: PO; tl4 Medication: 21:56 VIS not applicable for this client. tl4 Outcome: 22:46 Discharge ordered by MD. adams 23:35 Discharged to home ambulatory, with family, tl4 23:35 Condition: stable 23:35 Discharge instructions given to patient, Instructed on discharge instructions, follow up and referral plans. medication usage, Demonstrated understanding of instructions, follow-up care, Prescriptions given X 1, 23:37 Patient left the ED. tl4 Signatures: Cassidy Arteaga, HOMERO-C HOMERO-Rand Medley, RN RN Maverick Bañuelos RN RN tl4
--- NOTE | 2024-01-28 22:47 | EDPHYS ---
Physician Documentation [facility] Name: Lavonne Navarro Age: 23 yrs Sex: Female : 2000 Arrival Date: 01/28/2024 Time: 21:36 Bed 11 Private MD: ED Physician Vern Ferguson HPI: 01/27 21:43 This 23 yrs old Female presents to ER via Unassigned with complaints of Body aches, kb Sore Throat, Headache, Decreased Appetite. 21:43 Patient is a 23-year-old female who presents for right ear pain for 10 days, sore kb throat for 4 days and cough, fatigue and bodyaches that started last night. Denies nausea, vomiting, diarrhea, fever.. 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 - Social history:: Smoking status: Patient denies any tobacco usage or history of. ROS: 21:43 Constitutional: As per HPI kb Exam: 21:43 Constitutional: This is a well developed, well nourished patient who is awake, alert, kb and in no acute distress. Head/Face: Normocephalic, atraumatic. Cardiovascular: Regular rate Respiratory: Respirations even and unlabored. No increased work of breathing. Talking in full sentences Abdomen/GI: Soft, non-tender. No distention Skin: Warm, dry with normal turgor. Normal color. MS/ Extremity: Pulses equal, no cyanosis. Neurovascular intact. Full, normal range of motion. Neuro: Awake and alert, GCS 15, oriented to person, place, time, and situation. Moves all extremities. Normal gait. 21:43 ENT: External ear(s): are unremarkable, Ear canal(s): are normal, TM's: are normal, Posterior pharynx: Tonsils: bilaterally enlarged, with erythema, swelling, that is mild, erythema, that is mild, that is moderate, Vital Signs: 21:43 BP 109 / 57; Pulse 105; Resp 16; Temp 97.8(TE); Pulse Ox 100% ; Pain 8/10; tl4 23:33 BP 115 / 67; Pulse 98; Resp 16; Temp 98.1(O); Pulse Ox 99% on R/A; Pain 10/10; tl4 21:43 Pain Scale: Adult tl4 23:33 Pain Scale: Adult tl4 MDM: 21:40 Patient medically screened. kb 21:44 Differential diagnosis: Flu, COVID, strep, URI. Data reviewed: vital signs, nurses kb notes. 22:46 Counseling: I had a detailed discussion with the patient and/or guardian regarding the kb historical points, exam findings, and any diagnostic results supporting the discharge/admit diagnosis, lab results, the need for outpatient follow up, a family practitioner, to return to the emergency department if symptoms worsen or persist or if there are any questions or concerns that arise at home. 01/27 21:40 Order name: Flu; Complete Time: 22:45 kb 01/27 21:40 Order name: Strep; Complete Time: 22:45 kb 01/27 21:43 Order name: SARS-COV-2 Antigen Rapid; Complete Time: 22:45 kb Administered Medications: 23:33 Drug: Amoxicillin-Clavulanate PO 875 mg PO once Route: PO; tl4 Disposition: 01/28 19:01 Co-signature as Attending Physician, Vern Ferguson MD I agree with the assessment sp4 and plan of care. I reviewed the patient's care provided by the Advanced Practice Provider and agree with the diagnosis and treatment plan. Disposition Summary: 01/28/24 22:46 Discharge Ordered Notes: Location: Home kb Condition: Stable kb Diagnosis - Streptococcal pharyngitis kb Followup: kb - With: Emergency Department - When: As needed - Reason: Worsening of condition Followup: kb - With: Private Physician - When: 2 - 3 days - Reason: Recheck today's complaints, Continuance of care, Re-evaluation by your physician Discharge Instructions: - Discharge Summary Sheet kb - Strep Throat, Adult, [id number] kb Forms: - Medication Reconciliation Form kb - Thank You Letter kb - Antibiotic Education kb - Prescription Opioid Use kb - Patient Portal Instructions kb - Leadership Thank You Letter kb - Work release form eb Prescriptions: - Amoxicillin 875 mg Oral Tablet - take 1 tablet ORAL route every 12 hours for 10 days; 20 tablet; Refills: 0, kb Product Selection Permitted Signatures: Dispatcher [employer] EDCassidy Redmond, ASSEMBLER [employer]AY UPS-C ASSEMBLER LAY [employer]-Ckb Vern Ferguson MD MD sp4 Maverick Bañuelos RN RN tl4
[2024-01-28 23:54] VITALS: BP 115/67; TEMP 98.1; O2SAT 99
== END ==
LOC: ER 21:36
DX: J02.0 Streptococcal pharyngitis (principal); Z11.52 Encounter for screening for COVID-19
CPT/HCPCS: 36415; 87081; 87804; 87811; 99284

== ENCOUNTER 2024-07-04 08:26 | Emergency (ER) | payer SELFPAY ==
[2024-07-04 09:42] LABS: SARS-CoV-2 Antigen CONTROL BLUE LINE VIS/BG OK
[2024-07-04 09:43] LABS: SARS-CoV-2 Antigen Rapid Res Positive (Negative)
--- NOTE | 2024-07-04 10:23 | EDPHYS ---
Physician Documentation [facility] Name: Lavonne Navarro Age: 23 yrs Sex: Female : 2000 Arrival Date: 07/04/2024 Time: 08:26 Bed 14 Private MD: ED Physician Dexter Candelaria HPI: 07/04 09:44 This 23 yrs old Female presents to ER via Ambulatory with complaints of Chest Pain, rn Chills. 09:45 The patient or guardian reports cough, flu symptoms. rn 09:45 Onset: The symptoms/episode began/occurred 3 day(s) ago. rn 10:20 Severity of symptoms: At their worst the symptoms were. Modifying factors: The symptoms rn are alleviated by nothing, the symptoms are aggravated by nothing. The patient has not experienced similar symptoms in the past. The patient has not recently seen a physician. Historical: - Allergies: 08:53 No Known Allergies; ll1 - PMHx: 08:53 None; ll1 - PSHx: 08:53 None; ll1 - Immunization history:: Adult Immunizations up to date. - Infectious Disease History:: Denies. - Social history:: Smoking status: Patient denies any tobacco usage or history of. - Family history:: not pertinent. - Hospitalizations: : No recent hospitalization is reported. 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 Head/Face: Normocephalic, atraumatic. ENT: Bilateral tonsillar hypertrophy without exudate. Uvula midline. No stridor. Neck: Nontender cervical lymphadenopathy. No meningismus or nuchal rigidity Respiratory: No increased work of breathing, no retractions or nasal flaring. 13:56 ECG was reviewed by the Attending Physician. rn Vital Signs: 08:53 BP 100 / 64; Pulse 87; Resp 17; Pulse Ox 99% on R/A; Weight 77.11 kg; Height 5 ft. 7 ll1 in. ; Pain 0/10; 09:33 BP 115 / 68; Pulse 84; Resp 15; Pulse Ox 97% ; dd2 10:58 BP 113 / 67; Pulse 86; Resp 15; Temp 98.7; Pulse Ox 100% ; dd2 08:53 Body Mass Index 26.63 (77.11 kg, 170.18 cm) ll1 08:53 Pain Scale: Adult ll1 MDM: 08:48 Patient medically screened. rn 10:20 Differential Diagnosis: Influenza Upper Respiratory Infection Pharyngitis. Data rn reviewed: vital signs, nurses notes, lab test result(s), and as a result, I will discharge patient. Counseling: I had a detailed discussion with the patient and/or guardian regarding the historical points, exam findings, and any diagnostic results supporting the discharge/admit diagnosis, lab results, the need for outpatient follow up, to return to the emergency department if symptoms worsen or persist or if there are any questions or concerns that arise at home. Special discussion: I discussed with the patient/guardian in detail that at this point there is no indication for admission to the hospital. It is understood, however, that if the symptoms persist or worsen the patient needs to return immediately for re-evaluation. 07/04 09:04 Order name: Strep rn 07/04 09:04 Order name: SARS RAPID; Complete Time: 10:24 rn 07/04 09:04 Order name: Flu; Complete Time: 10:24 rn 07/04 09:44 Order name: Throat Culture EDMS 07/04 09:05 Order name: EKG - Nurse/Tech; Complete Time: 09:45 rn EC:56 Rate is 80 beats/min. Rhythm is regular. QRS [place] is Normal. [place] interval is normal. QRS rn interval is normal. QT interval is normal. No Q waves. T waves are Normal. No ST changes noted. Clinical impression: Normal ECG. Interpreted by me. Reviewed by me. Administered Medications: No medications were administered Disposition Summary: 07/04/24 10:23 Discharge Ordered Notes: Location: Home rn Problem: new rn Symptoms: have improved rn Condition: Stable rn Diagnosis - SARS-associated coronavirus as the cause of diseases classified elsewhere rn Followup: rn - With: Private Physician - When: As needed - Reason: Recheck today's complaints, Re-evaluation by your physician Discharge Instructions: - Discharge Summary Sheet rn - COVID-19 rn - Viral Illness, Adult rn Forms: - Medication Reconciliation Form rn - Antibiotic learning support assistant - Prescription Opioid Use rn - Patient Portal Instructions rn - Leadership Thank You Letter rn - Work release form dd2 Signatures: Dispatcher [employer] EDMS Dexter Candelaria MD MD rn Lewis, Lynsay RN RN ll1 STEVEN JACOME RN RN dd2 Corrections: (The following items were deleted from the chart) 09: 09:04 SARS-COV-2 Antigen Rapid+I.LAB.BRZ ordered. EDMS EDMS 09:04 09:04 Influenza Screen (A \T\ B)+BA.LAB.BRZ ordered. EDMS EDMS 09:04 09:04 Group A Streptococcus Rapid Sc+BA.LAB.BRZ ordered. EDMS EDMS
--- NOTE | 2024-07-04 10:23 | ER ---
Nurse's Notes [facility] Name: Lavonne Navarro Age: 23 yrs Sex: Female : 2000 Arrival Date: 07/04/2024 Time: 08:26 Bed 14 Private MD: Diagnosis: SARS-associated coronavirus as the cause of diseases classified elsewhere Presentation: 07/04 08:53 Chief complaint: Patient states: Chills, dry throat, chest pain with deep breathing for ll1 3-4 days. No fever or cough. Coronavirus screen: Client denies travel out of the [place] in the last 14 days. chills, fatigue, muscle pain, sore throat, Client presents with at least one sign or symptom that may indicate coronavirus-19. Standard/surgical mask placed on the client. Ebola Screen: Patient denies travel to an Ebola-affected area in the 21 days before illness onset. Initial Sepsis Screen: Does the patient meet any 2 criteria? No. Patient's initial sepsis screen is negative. Does the patient have a suspected source of infection? No. Patient's initial sepsis screen is negative. Risk Assessment: Do you want to hurt yourself or someone else? Patient reports no desire to harm self or others. Onset of symptoms. 08:53 Method Of Arrival: Ambulatory ll1 08:53 Acuity: VALERIE 3 ll1 08:57 Onset of symptoms was June 30, 2024. ll1 Historical: - Allergies: 08:53 No Known Allergies; ll1 - PMHx: 08:53 None; ll1 - PSHx: 08:53 None; ll1 - Immunization history:: Adult Immunizations up to date. - Infectious Disease History:: Denies. - Social history:: Smoking status: Patient denies any tobacco usage or history of. - Family history:: not pertinent. - Hospitalizations: : No recent hospitalization is reported. Screenin:33 [facility] ED Fall Risk Assessment (Adult) History of falling in the last 3 months, dd2 including since admission No falls in past 3 months (0 pts) Confusion or Disorientation No (0 pts) Intoxicated or Sedated No (0 pts) Impaired Gait No (0 pts) Mobility Assist Device Used No (0 pt) Altered Elimination No (0 pt) Score/Fall Risk Level 0 - 2 = Low Risk Oriented to surroundings, Maintained a safe environment, Hourly rounding (assess needs \T\ fall precautionary measures) done. Abuse screen: Denies threats or abuse. Nutritional screening: No deficits noted. Tuberculosis screening: No symptoms or risk factors identified. Assessment: 09:33 General: Appears in no apparent distress. Behavior is calm, cooperative. Pain: dd2 Complains of pain in THROAT, CHEST Pain does not radiate. Pain began 1 day ago. Neuro: No deficits noted. Cardiovascular: Reports chest pain. Respiratory: No deficits noted. GI: No deficits noted. : No deficits noted. EENT: Reports SORE THROAT. Derm: No deficits noted. Musculoskeletal: No deficits noted. Vital Signs: 08:53 BP 100 / 64; Pulse 87; Resp 17; Pulse Ox 99% on R/A; Weight 77.11 kg; Height 5 ft. 7 ll1 in. ; Pain 0/10; 09:33 BP 115 / 68; Pulse 84; Resp 15; Pulse Ox 97% ; dd2 10:58 BP 113 / 67; Pulse 86; Resp 15; Temp 98.7; Pulse Ox 100% ; dd2 08:53 Body Mass Index 26.63 (77.11 kg, 170.18 cm) ll1 08:53 Pain Scale: Adult ll1 ED Course: 08:29 Patient arrived in ED. mr 08:47 Dexter Candelaria MD is Attending Physician. rn 08:56 Triage completed. ll1 08:56 Arm band placed on. ll1 09:22 Strep Sent. cc6 09:22 Flu Sent. cc6 09:22 SARS RAPID Sent. cc6 09:31 STEVEN JACOME, RN is Primary Nurse. dd2 09:33 Patient has correct armband on for positive identification. Bed in low position. Call dd2 light in reach. Side rails up X 1. Provided Education on: CALL LIGHT, LABS. Client placed on continuous cardiac and pulse oximetry monitoring. NIBP monitoring applied. Door closed. Warm blanket given. 09:33 No provider procedures requiring assistance completed. Patient maintains SpO2 dd2 saturation greater than 95% on room air. 09:45 EKG done, by ED staff, reviewed by Dexter Candelaria MD. dd2 10:55 Patient did not have IV access during this emergency room visit. dd2 Administered Medications: No medications were administered Medication: 09:33 VIS not applicable for this client. dd2 Outcome: 10:23 Discharge ordered by . rn 10:55 Discharged to home ambulatory, dd2 10:55 Condition: stable 10:55 Discharge instructions given to patient, Instructed on discharge instructions, follow up and referral plans. Demonstrated understanding of instructions, follow-up care, 11:16 Patient left the ED. dd2 Signatures: Gilda Dean, Reg Reg CandelariaDexter MD MD rn Lewis, Lynsay, RN RN ll1 Davina Mistry RN RN cc6 STEVEN JACOME RN RN dd2 Corrections: (The following items were deleted from the chart) 08:56 08:53 BP 100 / 64; Resp 17bpm; 77.11 kg; Height 5 ft. 7 in.; BMI: 26.6; ll1 ll1 09:01 08:53 BP 100 / 64; Resp 17bpm; 77.11 kg; Height 5 ft. 7 in.; BMI: 26.6; Pain 0/10, ll1 Adult; ll1 09:33 09:33 General: dd2 dd2
[2024-07-04 11:24] VITALS: BP 113/67; TEMP 98.7; O2SAT 100
--- OUTSIDE RECORDS SUMMARY | 2024-07-04 14:41 | XMS REPORT | Continuity of Care Document ---
Author Name Unknown Address [address] [facility]. [address] [place] [address] [facility] thconnect Address [address] [facility] [address] [place] [address] Care Team Providers Care Telecommunications Cable Jointer Name Role Phone PCP, PATIENT DOES NOT HAVE A Primary Care Physic juan alberto Unavailable Marielle Rodriguez DO Attending Clinician [phone] MARIELLE RODRIGUEZ Attending Clinician Unavailab tamie MEDEIROS, [...] Effective Date Expirati on Date Source 1000 [id number] 2018 00:00:00 Allergies, Adverse Reactions, Alerts Allergy Name Allergy Type Status Severity Reaction(s) Onset Date Inactive Date Treating Clinician Comments Source No Known Allergie s DA Active [facility] NO KNOWN ALLERGIE S Drug Class Active [facility] Social History Social Habit Start Date Stop Date Quantity Comments Source Sex Assigned At 2000 00:00:00 2000 00:00:00 [facility] Smoking Status Start Date Stop Date Source Tobacco smoking consumption unknown [facility] Medications Ordered Medication Name Filled Medication Name Start Date Stop Date Current Medication? Ordering Clinician Indication Dosage Frequency Signature (SIG) Comments Components Source ibuprofen (IBU) tablet 600 mg 05-07 07:30: 00 05-07 07:18 :00 No 600mg 600 mg, Oral, ONCE, 1 dose, On Wed05/07/23 at 0230, [place] [facility] cyclobenzap rine 10 mg tablet 05-07 00:00: 00 Yes [id number] 10mg Take 1 tablet by mouth 3 (three) times daily as needed for Muscle Spasms. [facility] Vital Signs Vital Name Observation Time Observation Value Comments S our Systolic blood pressure 2023-05-07 07:06:00 113 mm[Hg] [facility] Diastolic blood pressure 2023-05-07 07:06:00 72 mm[Hg] [facility] Heart rate 2023-05-07 07:06:00 84 /min [facility] Body temperature 2023-05-07 07:06:00 36.89 Juliette [facility] Respiratory rate 2023-05-07 07:06:00 16 /min [facility] Body height 2023-05-07 07:06:00 170.2 cm [facility] Body weight 2023-05-07 07:06:00 70.308 kg [facility] BMI 2023-05-07 07:06:00 24.28 kg/m2 [facility] Oxygen saturation in Arterial blood by Pulse oximetry 2023-05-07 07:06:00 98 /min [facility] Height 2022-03-03 19:27:00 172.72 CM Weight 2022-03-03 19:27:00 80.73 KG Weight 2022-02-25 03:44:00 77.11 KG Height 2022-02-25 03:34:00 142.24 CM Height 2022-01-08 19:28:00 170.18 CM Weight 2022-01-08 19:28:00 79.37 KG Height 2021-12-21 18:36:00 170.18 CM Weight 2021-12-21 18:36:00 70.3 KG Procedures Procedure Date / Time Performed Performing Clinicia n Source NOTICE OF PRIVACY PRACTICES 2023-05-07 07:02:45 Doctor Unassigned, [place] [facility] CONSENT/REFUSAL FOR DIAGNOSIS AND TREATMENT 2023-05-07 07:02:24 Doctor Unassigned, [place] [facility] Encounters Start Date/Time End Date/Time Encounter Type Admission Type Attending [facility] Care Facility Care Department Encounter ID Source 2023-05-07 02:04:00 2023-05-07 02:35:[address] [facility] [id number] [facility] 2023-05-07 02:04:00 2023-05-07 02:35:00 Emergency X MARIELLE RODRIGUEZ [facility] ERT [id number] [facility] 2022-03-03 19:14:00 2022-03-03 22:40:00 Outpatient E MARCELO MEDEIROS [facility] [id number] [facility] 2022-02-25 03:29:00 2022-02-25 04:30:00 Outpatient E FERNANDEZ MANCILLA [facility] [id number] [facility] 2022-01-08 19:07:00 2022-01-08 20:00:00 Outpatient E REZA CASTILLO [facility] [id number] [facility] 2021-12-21 18:25:00 2021-12-21 19:25:00 Outpatient E ADOLFO DIALLO [facility] [id number] [facility] Results Test Description Test Time Test Comments Results Resul t Comments Source CT NECK W/CONTRAST *OW* 2022-03-03 21:33:32 [facility] : 2000 Sex: F [...] the FDA and the College of the [employer] (CAP) are more stringent than those [...] the FDA and the College of [employer] (CAP) are more stringent than those required for this test. Therefore, the result should be interpreted with caution and close attention to other clinical and epidemiological data XR CHEST 1 VIEW PORTABLE *OW*2022-01-08 19:31:03 [facility] 2000 Sex: FLocation code: [id number] 1 viewIndication: Fever.Comparison: NoneFindings:The heart and mediastinum are not remarkable.Costophrenic angles are clear. Elevation of left hemidiaphragm.Lungs are clear.Bone is unremarkable for age.Impression:1. 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
--- NOTE | 2024-07-05 17:00 | EKG ---
Test Date: 2024-07-04 Test Time: 09:03:49 Quality Assurance: CECILY MEASUREMENT RESULTS: Intervals: Rate: 80 OR: 122 QRSD: 80 QT: 348 QTc: 401 [place]: P: 44 OR: 122 QRS: 83 T: 77 INTERPRETIVE STATEMENTS: Normal sinus rhythm with sinus arrhythmia Normal ECG No previous ECG available for comparison Electronically Signed On 07-05-24 16:57:30 CDT by Bello Borges
== END 2024-07-04 11:16 | disposition home or self-care (01) ==
LOC: ER 08:26
DX: U07.1 COVID-19 (principal)
CPT/HCPCS: 36415; 87070; 87081; 87804; 87811; 93005

== ENCOUNTER 2024-11-11 19:40 | Emergency (ER) | payer OTHER ==
[2024-11-11] MEDS ORDERED: NA CHLORIDE 0.9% 250 ML ONE (20:08)
[2024-11-11] MEDS ORDERED: dexAMETHasone 10 MG/ML VIAL ONE (20:08)
[2024-11-11] MEDS ORDERED: KETOROLAC 30 MG/ML INJ ONE (20:08)
[2024-11-11 20:32] LABS: Specific Gravity 1.018 (1.005-1.030); Urine Bacteria None Seen /HPF (<20); Urine Bilirubin NEGATIVE (Negative); Urine Blood Negative (Negative); Urine Clarity Extremely Turbid (Clear); Urine Color Light-Yellow (Yellow); Urine Culture Reflex Order NOT NEEDED; Urine Glucose NEGATIVE (Negative); Urine Ketones NEGATIVE (Negative); Urine Micro Reflex YN NO BILL MICROSCOPIC; Urine Mucus Slight /HPF (None Seen); Urine Nitrite NEGATIVE (Negative); Urine Protein NEGATIVE (Negative); Urine RBC <5 /HPF (None Seen); Urine Urobilinogen 2+ (Normal); Urine pH 7.5 (5.0-7.0)
[2024-11-11 20:37] LABS: Absolute Basophils 0.1 K/uL (0-0.5); Absolute Eosinophils 0.3 K/uL (0-0.5); Absolute Lymphocytes (CBC) 2.8 K/uL (0.7-4.9); Absolute Monocytes 1.3 K/uL (0.1-1.3); Absolute Neutrophil 7.9 K/uL (1.8-8.0); Basophils % 0.8 % (0-1.3); Eosinophils % 2.1 % (0-4.4); Hematocrit 37.8 % (36.0-45.0); Hemoglobin 12.2 g/dL (12.0-15.0); Lymphocytes % 22.4 % (15.3-44.8); MCH 26.4 pg (27.0-35.0); MCHC 32.2 g/dL (32.0-36.0); MCV 81.8 fL (80-100); MPV 10.1 fL (7.6-11.3); Monocytes % 10.6 % (3.3-12.3); Neutrophils % 64.1 % (41.7-73.7); Platelets 286 thou/uL (152-406); RBC Red Blood Cell Count 4.63 M/uL (3.86-4.86); Red Cell Distribution Width 15.8 % (12.1-15.2)
[2024-11-11 20:44] LABS: SARS-CoV-2 Antigen CONTROL BLUE LINE VIS/BG OK; SARS-CoV-2 Antigen Rapid Res Negative (Negative)
[2024-11-11 20:45] LABS: Anion Gap 6.5 mEq/L (5.0-15.0); Potassium 3.5 mEq/L (3.5-5.1)
--- NOTE | 2024-11-11 22:20 | EDPHYS ---
Physician Documentation [facility] Name: Lavonne Navarro Age: 24 yrs Sex: Female : 2000 Arrival Date: 11/11/2024 Time: 19:40 Bed 4 Private MD: ED Physician Nael Pedroza HPI: 11/11 20:02 This 24 yrs old Female presents to ER via Ambulatory with complaints of URI. ec2 20:03 Patient arrives today for upper respiratory symptoms. Patient has been having cough and ec2 congestion as well as runny nose, sore throat ongoing for the past several days. Subjective fevers, myalgias as well. No vomiting, no diarrhea.. Historical: - Allergies: 19:53 No Known Allergies; tm6 - PMHx: 19:53 None; tm6 - PSHx: 19:53 None; tm6 - Immunization history:: Flu vaccine is not up to date. - Infectious Disease History:: Denies. - Social history:: Smoking status: Patient denies any tobacco usage or history of. ROS: 20:03 Constitutional: as per hpi ec2 Exam: 20:03 Constitutional: GEN: NAD Head: atraumatic Eyes: EOMI Ears: External ears are normal. ec2 Mouth: Posterior pharyngeal erythema without exudates appreciated. Positive anterior cervical lymphadenopathy noted. CV: Tachycardia LUNGS: no respiratory distress, no wheezes or rales or rhonchi. ABD: non-distended SKIN: no evidence of rashes MSK: no evidence of trauma Vital Signs: 19:52 BP 121 / 80; Pulse 103; Resp 17; Temp 98.4(O); Pulse Ox 100% on R/A; MAP 89 mmHg; tm6 Weight 79.38 kg; Height 5 ft. 7 in. ; Pain 0/10; 20:30 BP 121 / 80; Pulse 96; Resp 16; Pulse Ox 100% on R/A; dd2 21:18 BP 114 / 64; Pulse 96; Resp 16; Pulse Ox 100% on R/A; dd2 22:19 BP 100 / 60; Pulse 94; ec2 22:36 BP 108 / 62; Pulse 86; Resp 16; Temp 98.5; Pulse Ox 100% on R/A; dd2 19:52 Body Mass Index 27.41 (79.38 kg, 170.18 cm) tm6 19:52 Pain Scale: Adult tm6 [place] Coma Score: 19:53 Eye Response: spontaneous(4). Motor Response: obeys commands(6). Verbal Response: dd2 oriented(5). Total: 15. MDM: 19:48 Medical Screening Exam initiated ec2 20:03 Data reviewed: vital signs, nurses notes. ED course: Patient arrives today for ec2 evaluation of upper respiratory symptoms. Examination reveals slight tachycardia otherwise some erythema in the posterior pharyngeal area. Will obtain lab work as well as viral swab and strep swab. . 20:47 ED course: CBC shows slight leukocytosis. Metabolic profile reassuring. Urine is or ec2 noninfectious appearing. Negative COVID testing. Negative testing. Strep testing is negative as well.. 22:19 ED course: On reassessment patient with improving tachycardia. Suspect viral infection. ec2 Will discharge home. Return precautions given.. 11/11 20:01 Order name: CBC with Diff; Complete Time: 20:46 ec2 11/11 20:01 Order name: BMP; Complete Time: 20:46 ec2 11/11 20:01 Order name: UAM; Complete Time: 20:46 ec2 11/11 20:01 Order name: Test, Urine; Complete Time: 20:46 ec2 11/11 20:01 Order name: Influenza Screen (a \T\ B); Complete Time: 20:57 ec2 11/11 20:01 Order name: SARS RAPID; Complete Time: 20:46 ec2 11/11 20:01 Order name: Strep; Complete Time: 20:46 ec2 11/11 20:48 Order name: Throat Culture EDAR 11/11 20:01 Order name: IV; Complete Time: 22:28 ec2 Administered Medications: 21:39 Drug: NS 0.9% IV 250 ml IV at bolus once; to be given as a bolus over 30 minutes Route: dd2 IV; Rate: bolus; Site: left antecubital; 21:54 Follow up: Response: No adverse reaction dd2 22:09 Follow up: IV Status: Completed infusion; IV Intake: 250ml dd2 21:39 Drug: Decadron - Dexamethasone IVP 10 mg IVP once Route: IVP; Site: left antecubital; dd2 21:54 Follow up: Response: No adverse reaction dd2 21:39 Drug: Ketorolac IVP 15 mg IVP once Route: IVP; Site: left antecubital; dd2 21:54 Follow up: Response: No adverse reaction dd2 Disposition Summary: 11/11/24 22:19 Discharge Ordered Notes: Location: Home ec2 Condition: Stable ec2 Diagnosis - Viral infection, unspecified ec2 Followup: ec2 - With: Private Physician - When: - Reason: Re-evaluation by your physician Discharge Instructions: - Discharge Summary Sheet ec2 - Viral Illness, Adult ec2 Forms: - Medication Reconciliation Form ec2 - Antibiotic Education ec2 - Prescription Opioid Use ec2 - Patient Portal Instructions ec2 - Leadership Thank You Letter ec2 - Work release form dd2 Prescriptions: - Zofran 4 mg Oral Tablet - take 1 tablet ORAL route every 12 hours As needed; 20 tablet; Refills: 0, ec2 Product Selection Permitted - Prednisone 20 mg Oral Tablet - take 2 tablets ORAL route once daily for 5 days; 10 tablet; Refills: 0, Product ec2 Selection Permitted Signatures: Dispatcher [employer] Nael Hutchison MD MD ec2 Anh Mary RN RN tm6 STEVEN JACOME RN RN dd2
--- NOTE | 2024-11-11 22:20 | ER ---
Nurse's Notes [facility] Name: Lavonne Navarro Age: 24 yrs Sex: Female : 2000 Arrival Date: 11/11/2024 Time: 19:40 Bed 4 Private MD: Diagnosis: Viral infection, unspecified Presentation: 11/11 19:52 Chief complaint: Patient states: starting 11/06 I woke up with a sore throat, then body tm6 aches, fever, cough, now I have almost lost my voice and can barely talk. I just keep getting worse. Coronavirus screen: Client denies travel out of the [place] in the last 14 days. Ebola Screen: Patient negative for fever greater than or equal to 101.5 degrees Fahrenheit, and additional compatible Ebola Virus Disease symptoms Patient denies exposure to infectious person. Patient denies travel to an Ebola-affected area in the 21 days before illness onset. No symptoms or risks identified at this time. Resp Distress? No respiratory distress is noted at this time. Initial Sepsis Screen: Does the patient meet any 2 criteria? HR > 90 bpm. Does the patient have a suspected source of infection? No. Patient's initial sepsis screen is negative. Risk Assessment: Do you want to hurt yourself or someone else? Patient reports no desire to harm self or others. Onset of symptoms was November 06, 2024. 19:52 Method Of Arrival: Ambulatory tm6 19:52 Acuity: VALERIE 3 tm6 Triage Assessment: 19:53 General: Appears in no apparent distress. Behavior is calm, cooperative. Pain: Denies tm6 pain. EENT: Reports sore throat, difficulty talking. Neuro: Level of Consciousness is awake, alert, obeys commands, Oriented to person, place, time, situation. Cardiovascular: Patient's skin is warm and dry. Respiratory: Airway is patent Respiratory effort is even, unlabored, Respiratory pattern is regular, symmetrical, Breath sounds are clear. GI: No signs and/or symptoms were reported involving the gastrointestinal system. Abdomen is flat, non-distended. : No signs and/or symptoms were reported regarding the genitourinary system. Derm: No signs and/or symptoms reported regarding the dermatologic system. Musculoskeletal: Reports body aches. Historical: - Allergies: 19:53 No Known Allergies; tm6 - PMHx: 19:53 None; tm6 - PSHx: 19:53 None; tm6 - Immunization history:: Flu vaccine is not up to date. - Infectious Disease History:: Denies. - Social history:: Smoking status: Patient denies any tobacco usage or history of. Screenin:53 [facility] ED Fall Risk Assessment (Adult) History of falling in the last 3 months, dd2 including since admission No falls in past 3 months (0 pts) Confusion or Disorientation No (0 pts) Intoxicated or Sedated No (0 pts) Impaired Gait No (0 pts) Mobility Assist Device Used No (0 pt) Altered Elimination No (0 pt) Score/Fall Risk Level 0 - 2 = Low Risk Oriented to surroundings, Maintained a safe environment, Educated pt \T\ family on fall prevention, incl call for assistance when getting out of bed, Assessed \T\ reinforced patient's understanding of fall precautions, Hourly rounding (assess needs \T\ fall precautionary measures) done. Abuse screen: Denies threats or abuse. Nutritional screening: No deficits noted. Tuberculosis screening: No symptoms or risk factors identified. Assessment: 19:57 General: Appears in no apparent distress. Behavior is calm, cooperative, appropriate dd2 for age. Pain: Denies pain. Neuro: No deficits noted. Aviles Agitation-Sedation Scale (RASS): 0 - Alert and Calm Level of Consciousness is awake, alert, obeys commands, Oriented to person, place, time, situation, Appropriate for age. Cardiovascular: No deficits noted. Denies chest pain, Patient's skin is warm and dry. Respiratory: Reports cough that is non-productive, Airway is patent Respiratory effort is even, unlabored, Respiratory pattern is regular, symmetrical. Respiratory: Breath sounds are clear bilaterally. GI: No deficits noted. No signs and/or symptoms were reported involving the gastrointestinal system. : No deficits noted. No signs and/or symptoms were reported regarding the genitourinary system. EENT: Throat is reddened Reports LOSS OF VOICE. Derm: No deficits noted. No signs and/or symptoms reported regarding the dermatologic system. Musculoskeletal: No deficits noted. No signs and/or symptoms reported regarding the musculoskeletal system. Circulation, motion, and sensation intact. Range of motion: intact in all extremities. Vital Signs: 19:52 BP 121 / 80; Pulse 103; Resp 17; Temp 98.4(O); Pulse Ox 100% on R/A; MAP 89 mmHg; tm6 Weight 79.38 kg; Height 5 ft. 7 in. ; Pain 0/10; 20:30 BP 121 / 80; Pulse 96; Resp 16; Pulse Ox 100% on R/A; dd2 21:18 BP 114 / 64; Pulse 96; Resp 16; Pulse Ox 100% on R/A; dd2 22:19 BP 100 / 60; Pulse 94; ec2 22:36 BP 108 / 62; Pulse 86; Resp 16; Temp 98.5; Pulse Ox 100% on R/A; dd2 19:52 Body Mass Index 27.41 (79.38 kg, 170.18 cm) tm6 19:52 Pain Scale: Adult tm6 [place] Coma Score: 19:53 Eye Response: spontaneous(4). Motor Response: obeys commands(6). Verbal Response: dd2 oriented(5). Total: 15. ED Course: 19:41 Patient arrived in ED. jj6 19:48 Nael Pedroza MD is Attending Physician. ec2 19:53 STEVEN JACOME RN is Primary Nurse. dd2 19:53 Triage completed. tm6 19:53 Arm band placed on right wrist. tm6 19:53 Patient has correct armband on for positive identification. Bed in low position. Call dd2 light in reach. Side rails up X 1. Client placed on continuous cardiac and pulse oximetry monitoring. NIBP monitoring applied. Door closed. Noise minimized. Pillow given. Verbal reassurance given. 19:53 No provider procedures requiring assistance completed. Patient maintains SpO2 dd2 saturation greater than 95% on room air. 20:19 Strep Sent. dd2 20:19 SARS RAPID Sent. dd2 20:19 Influenza Screen (a \T\ B) Sent. dd2 20:19 UAM Sent. dd2 20:19 Test, Urine Sent. dd2 20:29 Test, Urine Sent. vk 20:29 UAM Sent. vk 20:29 BMP Sent. vk 20:29 CBC with Diff Sent. vk 20:29 Strep Sent. vk 20:29 SARS RAPID Sent. vk 20:29 Influenza Screen (a \T\ B) Sent. vk 21:26 Missed attempt(s): 22 gauge in left forearm. Bleeding controlled, band aid applied, bp catheter tip intact. 21:27 Inserted saline lock: 20 gauge in left antecubital area, using aseptic technique. bp ,using aseptic technique. ultrasound guided Blood collected. Flushed with 10 mL NS. 22:36 Provided Education on: d/c education. dd2 22:36 IV discontinued, intact, bleeding controlled, No redness/swelling at site. Pressure dd2 dressing applied. Administered Medications: 21:39 Drug: NS 0.9% IV 250 ml IV at bolus once; to be given as a bolus over 30 minutes Route: dd2 IV; Rate: bolus; Site: left antecubital; 21:54 Follow up: Response: No adverse reaction dd2 22:09 Follow up: IV Status: Completed infusion; IV Intake: 250ml dd2 :39 Drug: Decadron - Dexamethasone IVP 10 mg IVP once Route: IVP; Site: left antecubital; dd2 21:54 Follow up: Response: No adverse reaction dd2 21:39 Drug: Ketorolac IVP 15 mg IVP once Route: IVP; Site: left antecubital; dd2 21:54 Follow up: Response: No adverse reaction dd2 Medication: 19:53 VIS not applicable for this client. dd2 Intake: 22:09 IV: 250ml; Total: 250ml. dd2 Outcome: 22:19 Discharge ordered by . ec2 22:36 Discharged to home ambulatory, dd2 22:36 Condition: stable 22:36 Discharge instructions given to patient, Instructed on discharge instructions, follow up and referral plans. medication usage, Demonstrated understanding of instructions, follow-up care, medications, Prescriptions given X 2, 22:39 Patient left the ED. dd2 Signatures: Bello Parsad, RN RN Bernice Alberts Edwin, MD MD ec2 Anh Mary RN RN tm6 Wendy Alamo DIANA, RN RN dd2
[2024-11-11 23:30] VITALS: O2SAT 100
[2024-11-11 23:35] VITALS: BP 108/62; TEMP 98.5
== END 2024-11-11 22:39 | disposition home or self-care (01) ==
LOC: ER 19:40
DX: B34.9 Viral infection, unspecified (principal); Z11.52 Encounter for screening for COVID-19
CPT/HCPCS: 96365; 87070; 85025; 81001; 80048; 36415; 81025; 87081; 87804 ×2; 96375; 99284; 87811; J1100; J7050

== ENCOUNTER 2025-02-13 21:28 | Emergency (ER) | payer OTHER ==
[2025-02-13] MEDS ORDERED: HYDROCODONE/APAP 5/325 MG TAB ONE (21:55)
--- NOTE | 2025-02-13 21:58 | EDPHYS ---
Physician Documentation [facility] Name: Lavonne Navarro Age: 24 yrs Sex: Female : 2000 Arrival Date: 02/13/2025 Time: 21:28 Bed IW5 Private MD: ED Physician Jose A Andino HPI: 02/14 00:20 This 24 yrs old Female presents to ER via Ambulatory with complaints of Ear dr5 Pain, Jaw Pain. 00:20 The complaints affect the upper right third molar. Onset: The symptoms/episode dr5 began/occurred 3 day(s) ago. Patient is a 24-year-old female with no past medical history coming in with right back mouth pain, right ear pain, and jaw pain that started 2 days ago. Patient denies fever.. Historical: - Allergies: 02/13 21:57 No Known Allergies; cm10 - Home Meds: 21:57 None [Active]; cm10 - PMHx: 21:57 None; cm10 - PSHx: 21:57 None; cm10 - Immunization history:: Adult Immunizations up to date. - Infectious Disease History:: Denies. - Social history:: Smoking status: Patient denies any tobacco usage or history of. ROS: 02/14 00:20 Constitutional: as per hpi dr5 Exam: 00:20 Constitutional: This is a well developed, well nourished patient who is awake, alert, dr5 and in no acute distress. Eyes: Pupils equal round and reactive to light, extra-ocular motions intact. Lids and lashes normal. Conjunctiva and sclera are non-icteric and not injected. Cornea within normal limits. Periorbital areas with no swelling, redness, or edema. Neck: Trachea midline, no thyromegaly or masses palpated, and no cervical lymphadenopathy. Supple, full range of motion without nuchal rigidity, or vertebral point tenderness. No Meningismus. Chest/axilla: Normal chest wall appearance and motion. Nontender with no deformity. No lesions are appreciated. Cardiovascular: Regular rate and rhythm with a normal S1 and S2. Normal PMI, no JVD. No pulse deficits. Respiratory: Lungs have equal breath sounds bilaterally, clear to auscultation. No rales, rhonchi or wheezes noted. No increased work of breathing, no retractions or nasal flaring. Back: No spinal tenderness. No costovertebral tenderness. Full range of motion. Female : Normal external genitalia. Neuro: Awake and alert, GCS 15, oriented to person, place, time, and situation. Cranial nerves II-XII grossly intact. Motor strength 5/5 in all extremities. Sensory grossly intact. Cerebellar exam normal. Normal gait. 00:20 ENT: Mouth: abscess, that is minimal, that is moderate, of the upper right third molar, 00:20 ENT: No trismus. Handling secretions without difficulty. Speaking in full sentences.. dr5 Vital Signs: 02/13 21:55 BP 105 / 66; Pulse 88; Resp 15; Temp 98.6(O); Pulse Ox 95% ; Weight 77.11 kg; Height 5 cm10 ft. 7 in. ; Pain 9/10; 21:55 Body Mass Index 26.63 (77.11 kg, 170.18 cm) cm10 21:55 Pain Scale: Adult cm10 MDM: 21:35 Medical Screening Exam initiated dr5 02/14 00:20 Differential diagnosis: otitis media, otitis externa, Dental Caries, Dental Abscess. dr5 Data reviewed: vital signs, nurses notes. I considered the following discharge prescriptions or medication management in the emergency department Medications were administered in the Emergency Department. See MAR. Care significantly affected by the following Social Determinants of Health: Poor access to healthcare and/or lack of insurance, Poor access to transportation, Problems related to employment. Counseling: I had a detailed discussion with the patient and/or guardian regarding the historical points, exam findings, and any diagnostic results supporting the discharge/admit diagnosis, the presence of at least one elevated blood pressure reading (>120/80) during this emergency department visit, the need for outpatient follow up, for definitive care, a dentist, a family practitioner, to return to the emergency department if symptoms worsen or persist or if there are any questions or concerns that arise at home. ED course: Patient given first dose of Augmentin in ER due to pharmacies being closed. Prescription sent in and recommended patient follow-up with dentist this week. Patient reports that she has a dentist and will follow-up. Recommended alternating Tylenol Motrin as needed for pain and swelling. All questions answered. Administered Medications: 02/13 22:02 Drug: Amoxicillin-Clavulanate PO 875 mg PO once Route: PO; cm10 22:02 Follow up: Response: Medication administered at discharge. 10 22:02 Drug: HYDROcodone-acetaminophen PO 5 mg-325 mg 2 tabs PO once Route: PO; 10 22:02 Follow up: Response: Medication administered at discharge. [facility] Disposition: 02/14 00:22 Co-signature as Attending Physician, Jose A Andino MD I reviewed the patient's care rt provided by the Advanced Practice Provider and agree with the diagnosis and treatment plan. Disposition Summary: 02/13/25 21:58 Discharge Ordered Notes: Location: Home dr5 Condition: Stable dr5 Diagnosis - Dental root caries dr5 Followup: dr5 - With: Emergency Department - When: As needed - Reason: Worsening of condition Followup: dr5 - With: Private Physician - When: 1 - 2 days - Reason: Recheck today's complaints, Continuance of care, Re-evaluation by your physician Discharge Instructions: - Discharge Summary Sheet dr5 - Dental Abscess dr5 Forms: - Medication Reconciliation Form dr5 - Antibiotic Education dr5 - Patient Portal Instructions dr5 - Leadership Thank You Letter dr5 Prescriptions: - Augmentin 875-125 mg Oral Tablet - take 1 tablet ORAL route every 12 hours for 10 days; 20 tablet; Refills: 0, dr5 Product Selection Permitted - Ibuprofen 800 mg Oral Tablet - take 1 tablet ORAL route every 12 hours As needed take with food; 20 tablet; dr5 Refills: 0, Product Selection Permitted Signatures: Jose A Andino MD MD rt Lawanda Barrientos, RN RN cm10 Gabino Johnson, TRIMMING DEPARTMENT BLOCKER-C TRIMMING DEPARTMENT BLOCKER-Cdr5
--- NOTE | 2025-02-13 21:58 | ER ---
Nurse's Notes [facility] Name: Lavonne Navarro Age: 24 yrs Sex: Female : 2000 Arrival Date: 02/13/2025 Time: 21:28 Bed IW5 Private MD: Diagnosis: Dental root caries Presentation: 02/13 21:55 Chief complaint: Patient states: right ear pain that radiates to jaw and neck onset 3 cm10 days ago. Coronavirus screen: Client denies travel out of the [place] in the last 14 days. Ebola Screen: Patient denies travel to an Ebola-affected area in the 21 days before illness onset. Initial Sepsis Screen: Does the patient meet any 2 criteria? No. Patient's initial sepsis screen is negative. Does the patient have a suspected source of infection? No. Patient's initial sepsis screen is negative. Risk Assessment: Do you want to hurt yourself or someone else? Patient reports no desire to harm self or others. Onset of symptoms was February 13, 2025. 21:55 Method Of Arrival: Ambulatory cm10 21:55 Acuity: VALERIE 4 cm10 Triage Assessment: 21:57 General: Appears in no apparent distress. uncomfortable, Behavior is calm, cooperative. cm10 Pain: Complains of pain in right ear. EENT: Dental caries noted in upper right third molar (#1). Neuro: No deficits noted. Level of Consciousness is awake, alert, obeys commands, Oriented to person, place, time, situation, Appropriate for age. Respiratory: No deficits noted. Airway is patent Respiratory effort is even, unlabored, Respiratory pattern is regular, symmetrical. Historical: - Allergies: 21:57 No Known Allergies; cm10 - Home Meds: 21:57 None [Active]; cm10 - PMHx: 21:57 None; cm10 - PSHx: 21:57 None; cm10 - Immunization history:: Adult Immunizations up to date. - Infectious Disease History:: Denies. - Social history:: Smoking status: Patient denies any tobacco usage or history of. Screenin:58 [facility] ED Fall Risk Assessment (Adult) History of falling in the last 3 months, cm10 including since admission No falls in past 3 months (0 pts) Confusion or Disorientation No (0 pts) Intoxicated or Sedated No (0 pts) Impaired Gait No (0 pts) Mobility Assist Device Used No (0 pt) Altered Elimination No (0 pt) Score/Fall Risk Level 0 - 2 = Low Risk Oriented to surroundings, Maintained a safe environment, Hourly rounding (assess needs \T\ fall precautionary measures) done. Abuse screen: Denies threats or abuse. Denies injuries from another. Nutritional screening: No deficits noted. Tuberculosis screening: No symptoms or risk factors identified. Vital Signs: 21:55 BP 105 / 66; Pulse 88; Resp 15; Temp 98.6(O); Pulse Ox 95% ; Weight 77.11 kg; Height 5 cm10 ft. 7 in. ; Pain 9/10; 21:55 Body Mass Index 26.63 (77.11 kg, 170.18 cm) cm10 21:55 Pain Scale: Adult cm10 ED Course: 21:31 Patient arrived in ED. im 21:35 Gabino Johnson FNP-C is [facility]. dr5 21:35 Jose A Andino MD is Attending Physician. dr5 21:57 Triage completed. cm10 21:58 Arm band placed on right wrist. Patient placed in waiting room. cm10 21:58 Patient has correct armband on for positive identification. Provided Education on: cm10 Follow-up instructios. 21:58 No provider procedures requiring assistance completed. Patient did not have IV access cm10 during this emergency room visit. Administered Medications: 22:02 Drug: Amoxicillin-Clavulanate PO 875 mg PO once Route: PO; cm10 22:02 Follow up: Response: Medication administered at discharge. cm10 22:02 Drug: HYDROcodone-acetaminophen PO 5 mg-325 mg 2 tabs PO once Route: PO; cm10 22:02 Follow up: Response: Medication administered at discharge. cm10 Medication: 21:58 VIS not applicable for this client. cm10 Outcome: 21:58 Discharge ordered by . dr5 22:02 Discharged to home ambulatory, cm10 22:02 Condition: good 22:02 Discharge instructions given to patient, Instructed on discharge instructions, follow up and referral plans. medication usage, Demonstrated understanding of instructions, follow-up care, medications, Prescriptions given X 2, 22:03 Patient left the ED. cm10 Signatures: Stacia Dubois Clarissa RN RN cm10 Johnson, Gabino, SHIPSMITH-C SHIPSMITH-Cdr5
[2025-02-13] MEDS ORDERED: AMOX/K CLAV 875 MG TAB ONE (22:00)
[2025-02-13 22:17] VITALS: BP 105/66; TEMP 98.6; O2SAT 95
== END 2025-02-13 22:03 | disposition home or self-care (01) ==
LOC: ER 21:28
DX: K02.7 Dental root caries (principal)
CPT/HCPCS: 99283

== ENCOUNTER 2025-02-21 18:26 | Emergency (ER) | payer OTHER ==
--- NOTE | 2025-02-21 18:51 | EDPHYS ---
Physician Documentation [facility] Name: Lavonne Navarro Age: 24 yrs Sex: Female : 2000 Arrival Date: 02/21/2025 Time: 18:26 Bed IW4 Private MD: ED Physician Louis Garrett HPI: 02/21 22:01 This 24 yrs old Female presents to ER via Ambulatory with complaints of Fever, Cough. ms3 22:01 24-year-old female with no past medical history presents to the emergency department ms3 for cough that is been ongoing for 3 days. Patient states her nephew was recently diagnosed with pneumonia and was at her house. Patient has taken Robitussin without relief of her cough. 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 - Infectious Disease History:: Denies. - Social history:: Smoking status: Patient denies any tobacco usage or history of. ROS: 22:01 Constitutional: Negative for fever, and chills. Cardiovascular: Negative for chest ms3 pain, and palpitations. 22:01 Abdomen/GI: Negative for abdominal pain, nausea, vomiting, diarrhea, and constipation, MS/Extremity: Negative for injury and deformity, Skin: Negative for injury, rash, and discoloration, 22:01 Respiratory: Positive for cough, Exam: 22:01 Constitutional: This is a well developed, well nourished patient who is awake, alert, ms3 and in no acute distress. Cardiovascular: Regular rate and rhythm with a normal S1 and S2. No gallops, murmurs, or rubs. Normal PMI, no JVD. No pulse deficits. Respiratory: Lungs have equal breath sounds bilaterally, clear to auscultation and percussion. No rales, rhonchi or wheezes noted. No increased work of breathing, no retractions or nasal flaring. Abdomen/GI: Soft, non-tender, with normal bowel sounds. No distension or tympany. No guarding or rebound. No evidence of tenderness throughout. Vital Signs: 19:25 BP 114 / 72; Pulse 102; Resp 18; Temp 98.5; Pulse Ox 97% ; Weight 77.11 kg; Height 5 bm8 ft. 8 in. ; Pain 0/10; 19:25 Body Mass Index 25.85 (77.11 kg, 172.72 cm) bm8 19:25 Pain Scale: Adult bm8 [place] Coma Score: 19:27 Eye Response: spontaneous(4). Motor Response: obeys commands(6). Verbal Response: bm8 oriented(5). Total: 15. MDM: 18:50 Medical Screening Exam initiated ms3 22:01 Differential diagnosis: viral Infection, Flu versus COVID. Data reviewed: vital signs, ms3 nurses notes, and as a result, I will discharge patient. Counseling: I had a detailed discussion with the patient and/or guardian regarding the historical points, exam findings, and any diagnostic results supporting the discharge/admit diagnosis, the need for outpatient follow up, to return to the emergency department if symptoms worsen or persist or if there are any questions or concerns that arise at home. Special discussion: I discussed with the patient/guardian in detail that at this point there is no indication for admission to the hospital. It is understood, however, that if the symptoms persist or worsen the patient needs to return immediately for re-evaluation. ED course: Discussed obtaining flu and COVID swabs with patient. Patient declines. Patient to follow-up with primary care physician in 2 to 3 days. Patient understands and agrees with plan. All questions were answered. Return precautions discussed include worsening symptoms, or any other concerns. Administered Medications: No medications were administered Disposition Summary: 02/21/25 18:50 Discharge Ordered Notes: Location: Home ms3 Condition: Stable ms3 Diagnosis - Acute upper respiratory infection, unspecified ms3 Followup: ms3 - With: Eric Mcpherson DO - When: 2 - 3 days - Reason: Recheck today's complaints Discharge Instructions: - Discharge Summary Sheet ms3 - Upper Respiratory Infection, Adult ms3 Forms: - Medication Reconciliation Form ms3 - Antibiotic Education ms3 - Prescription Opioid Use ms3 - Patient Portal Instructions ms3 - Leadership Thank You Letter ms3 Prescriptions: - benzonatate 200 mg Oral capsule - take 1 capsule ORAL route 3 times per day as needed; 20 capsule; Refills: 0, ms3 Product Selection Permitted Signatures: Dispatcher [employer] EDMS Louis Garrett DO DO ms3 Ry Brooks, RN RN bm8 Corrections: (The following items were deleted from the chart) 19:23 18:37 COVID-19 Ag + Flu A+B [id number].LAB.BRZ ordered. EDMS EDMS
--- NOTE | 2025-02-21 19:40 | ER ---
Nurse's Notes [facility] Name: Lavonne Navarro Age: 24 yrs Sex: Female : 2000 Arrival Date: 02/21/2025 Time: 18:26 Bed IW4 Private MD: Diagnosis: Acute upper respiratory infection, unspecified Presentation: 02/21 19:25 Chief complaint: Patient states: Cough for a few days. Coronavirus screen: Vaccine bm8 status: Patient reports being unvaccinated. Ebola Screen: Patient negative for fever greater than or equal to 101.5 degrees Fahrenheit, and additional compatible Ebola Virus Disease symptoms Patient denies exposure to infectious person. Patient denies travel to an Ebola-affected area in the 21 days before illness onset. No symptoms or risks identified at this time. Initial Sepsis Screen: Does the patient meet any 2 criteria? No. Patient's initial sepsis screen is negative. Does the patient have a suspected source of infection? No. Patient's initial sepsis screen is negative. Risk Assessment: Do you want to hurt yourself or someone else? Patient reports no desire to harm self or others. Onset of symptoms was February 17, 2025. 19:25 Method Of Arrival: Ambulatory bm8 19:25 Acuity: VALERIE 4 bm8 Triage Assessment: 19:26 General: Appears in no apparent distress. comfortable, Behavior is calm, cooperative, bm8 appropriate for age. Pain: Denies pain. EENT: No deficits noted. No signs and/or symptoms were reported regarding the EENT system. Neuro: No deficits noted. Cardiovascular: No deficits noted. Respiratory: Reports cough that is non-productive, Airway is patent Trachea midline Respiratory effort is even, unlabored, Respiratory pattern is regular, symmetrical, Breath sounds are clear bilaterally. GI: No signs and/or symptoms were reported involving the gastrointestinal system. : No signs and/or symptoms were reported regarding the genitourinary system. Derm: No signs and/or symptoms reported regarding the dermatologic system. Musculoskeletal: No signs and/or symptoms reported regarding the musculoskeletal system. 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 - Infectious Disease History:: Denies. - Social history:: Smoking status: Patient denies any tobacco usage or history of. Screenin:27 [facility] ED Fall Risk Assessment (Adult) History of falling in the last 3 months, bm8 including since admission No falls in past 3 months (0 pts) Confusion or Disorientation No (0 pts) Intoxicated or Sedated No (0 pts) Impaired Gait No (0 pts) Mobility Assist Device Used No (0 pt) Altered Elimination No (0 pt) Score/Fall Risk Level 0 - 2 = Low Risk Oriented to surroundings, Maintained a safe environment, Educated pt \T\ family on fall prevention, incl call for assistance when getting out of bed, Assessed \T\ reinforced patient's understanding of fall precautions, Hourly rounding (assess needs \T\ fall precautionary measures) done, Used ambulatory aids as needed (educated on \T\ assisted with), Used gait belt as appropriate. Abuse screen: Denies threats or abuse. Nutritional screening: No deficits noted. Tuberculosis screening: No symptoms or risk factors identified. Assessment: 19:27 Reassessment: see triage assessment. bm8 Vital Signs: 19:25 BP 114 / 72; Pulse 102; Resp 18; Temp 98.5; Pulse Ox 97% ; Weight 77.11 kg; Height 5 bm8 ft. 8 in. ; Pain 0/10; 19:25 Body Mass Index 25.85 (77.11 kg, 172.72 cm) bm8 19:25 Pain Scale: Adult bm8 Parisa Coma Score: 19:27 Eye Response: spontaneous(4). Motor Response: obeys commands(6). Verbal Response: bm8 oriented(5). Total: 15. ED Course: 18:32 Patient arrived in ED. al6 18:36 Louis Garrett DO is Attending Physician. ms3 18:50 Eric Mcpherson DO is Referral Physician. ms3 19:25 Ry Brooks, RN is Primary Nurse. bm8 19:26 Triage completed. bm8 19:26 Arm band placed on right wrist. bm8 19:27 Patient has correct armband on for positive identification. Provided Education on: post bm8 er care. 19:27 No provider procedures requiring assistance completed. Patient did not have IV access bm8 during this emergency room visit. Administered Medications: No medications were administered Medication: 19:27 VIS not applicable for this client. bm8 Outcome: 18:50 Discharge ordered by . ms3 19:35 Discharged to home ambulatory, with family, bm8 19:35 Condition: stable 19:35 Discharge instructions given to patient, Instructed on discharge instructions, follow up and referral plans. no drinking with medication, no driving heavy equipment, medication usage, safety practices, Demonstrated understanding of instructions, follow-up care, medications, 19:39 Patient left the ED. bm8 Signatures: Louis Garrett DO DO ms3 Ry Brooks, RN RN bm8 Klaudia Graves6
[2025-02-21 20:00] VITALS: BP 114/72; TEMP 98.5; O2SAT 97
== END 2025-02-21 19:39 | disposition home or self-care (01) ==
LOC: ER 18:26
DX: J06.9 Acute upper respiratory infection, unspecified (principal)

== ENCOUNTER 2025-03-10 10:07 | Emergency (ER) | payer OTHER ==
--- OUTSIDE RECORDS SUMMARY | 2025-03-10 10:09 | XMS REPORT | Continuity of Care Document ---
Author Name Unknown Address [address] [place] [address] [facility] Address [address] [place] [address] Care Team Providers Care County Engineer Name Role Phone Pcp, Patient Does Not Have A Primary Care Physic juan alberto Angeline MOREJON Attending Clinician Unavailable Angeline MOREJON Attending Clinician Unavailable Angeline Diamond Attending Clinician Marielle Rodriguez DO Attending Clinician MARIELLE RODRIGUEZ Attending Clinician UnavailDR MARCELO nieto BA Attending Clinician Unavailable DR FERNANDEZ MANCILLA Attending Clinician DR REZA Alberto Attending Clinician UnavailDR ADOLFO Guzman Attending Clinician Unavailable DR MARCELO MEDEIROS Admitting Clinician Unavailable DR FERNANDEZ MANCILLA Admitting Clinician DR REZA Alberto Admitting Clinician UnavailDR ADOLFO Guzman Admitting Clinician Unavailable Payers Payer Name Policy Type Policy Number Effective Date Expirati on Date Source [facility] David JALLOH [id number] 2024 00:00:00 1000 [id number] 2018 00:00:00 Allergies, Adverse Reactions, Alerts Allergy Name Allergy Type Status Severity Reaction(s) Onset Date Inactive Date Treating Clinician Comments Source No Known Allergie s DA Active [facility] NO KNOWN ALLERGIE S Drug Class Active [facility] Social History Social Habit Start Date Stop Date Quantity Comments Source ASSERTION Possible [facility] 2000 [facility]:00 2000 00:00:00 [facility] Smoking Status Start Date Stop Date Source Tobacco smoking consumption unknown [facility] Medications Ordered Medication Name Filled Medication Name Start Date Stop Date Current Medication? Ordering Clinician Indication Dosage Frequency Signature (SIG) Comments Components Source methylPREDN ISolone 4 mg tablets 03-07 00:00: 00 Yes [id number] Take by mouth SEE-INSTRU CTIONS. follow package directions [facility] benzonatate 200 mg capsule 03-07 00:00: 00 Yes [id number] 200mg Take 1 capsule by mouth 3 (three) times daily as needed for Cough for up to 20 doses. [facility] ibuprofen (IBU) tablet 600 mg 05-07 07:30: 00 05-07 07:18 :00 No 600mg 600 mg, Oral, ONCE, 1 dose, On Wed05/07/23 at 0230, [place] [facility] cyclobenzap rine 10 mg tablet 05-07 00:00: 00 Yes [id number] 10mg Take 1 tablet by mouth 3 (three) times daily as needed for Muscle Spasms. [facility] Vital Signs Vital Name Observation Time Observation Value Comments S ginetteonel Systolic blood pressure 2025-03-07 21:26:05 101 mm[Hg] [facility] Diastolic blood pressure 2025-03-07 21:26:05 63 mm[Hg] [facility] Heart rate 2025-03-07 21:26:05 76 /min [facility] Body temperature 2025-03-07 21:26:05 36.61 Juliette [facility] Respiratory rate 2025-03-07 21:26:05 18 /min [facility] Oxygen saturation in Arterial blood by Pulse oximetry 2025-03-07 21:26:05 99 /min [facility] Body height 2025-03-07 18:13:00 170.2 cm [facility] Body weight 2025-03-07 18:13:00 77.565 kg [facility] BMI 2025-03-07 18:13:00 26.78 kg/m2 [facility] Systolic blood pressure 2023-05-07 07:06:00 113 mm[Hg] [facility] Diastolic blood pressure 2023-05-07 07:06:00 72 mm[Hg] [facility] Heart rate 2023-05-07 07:06:00 84 /min [facility] Body temperature 2023-05-07 07:06:00 36.89 Juliette [facility] Respiratory rate 2023-05-07 07:06:00 16 /min [facility] Body height 2023-05-07 07:06:00 170.2 cm [facility] Body weight 2023-05-07 07:06:00 70.308 kg [facility] BMI 2023-05-07 07:06:00 24.28 kg/m2 [facility] Oxygen saturation in Arterial blood by Pulse oximetry 2023-05-07 07:06:00 98 /min [facility] Height 2022-03-03 19:27:00 172.72 CM Weight 2022-03-03 19:27:00 80.73 KG Weight 2022-02-25 03:44:00 77.11 KG Height 2022-02-25 03:34:00 142.24 CM Weight 2022-01-08 19:28:00 79.37 KG Height 2022-01-08 19:28:00 170.18 CM Height 2021-12-21 18:36:00 170.18 CM Weight 2021-12-21 18:36:00 70.3 KG Procedures Procedure Date / Time Performed Performing Clinicia n Source RAPID STREP SCREEN FOR GROUP A 2025-03-07 18:42:00 Angeline Morejon [facility] INFLUENZA A/B RSV COVID NAAT 2025-03-07 18:42:00 Angeline Morejon [facility] NOTICE OF PRIVACY PRACTICES 2023-05-07 07:02:45 Doctor Unassigned, [place] [facility] CONSENT/REFUSAL FOR DIAGNOSIS AND TREATMENT 2023-05-07 07:02:24 Doctor Unassigned, [place] [facility] Encounters Start Date/Time End Date/Time Encounter Type Admission Type Attending [facility] Care Department Encounter ID Source 2025-03-07 13:16:00 2025-03-07 16:27:00 Emergency X Angeline MOREJON K [facility] [id number] [facility] 2025-03-07 13:16:00 2025-03-07 16:27:00 Emergency Angeline Morejon [facility] [id number] [facility] 2023-05-07 02:04:00 2023-05-07 02:35:00 Emergency Marielle Rodriguez [facility] [id number] [facility] 2023-05-07 02:04:00 2023-05-07 02:35:00 Emergency MARIELLE ABREU [facility] [id number] [facility] 2022-03-03 19:14:00 2022-03-03 22:40:00 Outpatient E MARCELO MEDEIROS [facility] [id number] [facility] 2022-02-25 03:29:00 2022-02-25 04:30:00 Outpatient E FERNANDEZ MANCILLA [facility] [id number] [facility] 2022-01-08 19:07:00 2022-01-08 20:00:00 Outpatient E REZA CASTILLO [facility] [id number] [facility] 2021-12-21 18:25:00 2021-12-21 19:25:00 Outpatient E ADOLFO DIALLO [facility] [id number] [facility] Results Test Description Test Time Test Comments Results Resul t Comments Source CT NECK W/CONTRAST *OW* 2022-03-03 21:33:32 [facility] : 2000 Sex: F [...] the FDA and the [employer] (CAP) are more stringent than those [...] the FDA and the [employer] (CAP) are more stringent than those required for this test. Therefore, the result should be interpreted with caution and close attention to other clinical and epidemiological data XR CHEST 1 VIEW PORTABLE *OW*2022-01-08 19:31:03 [facility] 2000 Sex: FLocation code: [id number] 1 viewIndication: Fever.Comparison: NoneFindings:The heart and mediastinum are not remarkable.Costophrenic angles are clear. Elevation of left hemidiaphragm.Lungs are clear.Bone is unremarkable for age.Impression:1. 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 3 VIEWS *OW*2021-12-21 19:17:09 [facility] 2000 Sex: FEXAMINATION:XRKNEE LEFT 3 VIEWS *OW*CLINICAL INDICATION:Female, 21 years old with Traumatic injury; Unspecified fallCOMPARISON: NoneFINDINGS:Three view(s) of the knee obtained.Joint spaces: Anatomic.Bones: No acute fracture.Soft tissues: Unremarkable.IMPRESSION: No acute findings.Electronically signed by: Jun green MD 12/21/2021 7:17 PM [facility] Notes Date/Time Note Provider Source 2025-03-07 16:26:55 Pt given printed and verbal discharge instructions regarding viral URI with cough and flu-like symptoms, encouraged hydration, 2 Prescriptions sent. Pt verbalized understanding of instructions, pt awake alert oriented, resp reg unlabored, skin w/d, color appropriate for race, moves all ext well,pt encouraged to follow up with pcp. Advised to seek medical attention for new/prolonged/worsening of symptoms, Symptoms improved. Awake, alert oriented, resp reg unlabored, skin w/d, pt leaving amb with steady gait, in no apparent distress, T [facility] 2025-03-07 13:13:52 Patient arrived ambulatory c/o cough, fever, sore throat, body aches that started a couple of days ago. 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 Arlet Lazaro RN [facility]
[2025-03-10] MEDS ORDERED: NA CHLORIDE 0.9% 1,000 ML ONE (10:41)
[2025-03-10 10:54] LABS: Absolute Basophils 0.1 K/uL (0-0.5); Absolute Eosinophils 0.2 K/uL (0-0.5); Absolute Lymphocytes (CBC) 2.1 K/uL (0.7-4.9); Absolute Monocytes 1.2 K/uL (0.1-1.3); Absolute Neutrophil 8.1 K/uL (1.8-8.0); Basophils % 0.8 % (0-1.3); Eosinophils % 1.8 % (0-4.4); Hematocrit 36.9 % (36.0-45.0); Hemoglobin 12.5 g/dL (12.0-15.0); Lymphocytes % 17.9 % (15.3-44.8); MCH 26.7 pg (27.0-35.0); MCV 78.5 fL (80-100); MPV 9.9 fL (7.6-11.3); Monocytes % 10.3 % (3.3-12.3); Neutrophils % 69.2 % (41.7-73.7); Nucleated Red Blood Cells % 0.1 % (0-0); Platelets 287 thou/uL (152-406); Red Cell Distribution Width 16.3 % (12.1-15.2)
--- NOTE | 2025-03-10 11:22 | RAD REPORT ---
EXAM: Chest Single View HISTORY: 24 years Female COUGH COMPARISON: None. FINDINGS: LUNGS/PLEURA: The lungs are clear. No pleural effusions or pneumothorax. No pulmonary edema. CARDIAC/MEDIASTINUM: The cardiac silhouette is within normal limits. UPPER ABDOMEN: No significant abnormality. BONES: No acute abnormality. LINES/TUBES/OTHER: N/A IMPRESSION: No evidence of acute cardiopulmonary disease.
[2025-03-10 11:24] LABS: Albumin 3.9 g/dL (3.4-5.0); Albumin/Globulin Ratio 0.9 (1.1-1.8); Alkaline Phosphatase 79 U/L (45-117); Anion Gap 7.9 mEq/L (5.0-15.0); BUN Blood Urea Nitrogen 10 mg/dL (7-18); Bicarbonate 28 mEq/L (21-32); Bilirubin Total 1.9 mg/dL (0.2-1.0); Globulin 4.5 g/dL (2.3-3.5); Glomerular Filtration Rate 122 ml/min (=/>90); Glucose Level 76 mg/dL (74-106); Lipase 42 U/L (13-75); Potassium 2.9 mEq/L (3.5-5.1); Protein, Total 8.4 g/dL (6.4-8.2); Sodium Level 140 mEq/L (136-145)
[2025-03-10 11:25] LABS: ALT/SGPT < 14 U/L (13-56); AST/SGOT < 10 U/L (15-37)
[2025-03-10] MEDS ORDERED: POTASSIUM 25 MEQ EFFERV TAB ONE (11:58)
[2025-03-10 12:10] LABS: Specific Gravity > 1.030 (1.005-1.030); Sqamous Epithelial 20-50 /HPF (None Seen); Urine Bacteria 20-50 /HPF (<20); Urine Bilirubin NEGATIVE (Negative); Urine Blood Negative (Negative); Urine Clarity Extremely Turbid (Clear); Urine Color Yellow (Yellow); Urine Culture Reflex Order NOT NEEDED; Urine Glucose NEGATIVE (Negative); Urine Ketones NEGATIVE (Negative); Urine Microscopic Reflex YN ORDER UMIC; Urine Mucus 4+ /HPF (None Seen); Urine Nitrite NEGATIVE (Negative); Urine Protein 1+ (Negative); Urine Urobilinogen 3+ (Normal); Urine WBC <5 /HPF (<5)
--- NOTE | 2025-03-10 12:37 | EDPHYS ---
Physician Documentation [facility] Name: Lavonne Navarro Age: 24 yrs Sex: Female : 2000 Arrival Date: 03/10/2025 Time: 10:07 Bed 6 Private MD: ED Physician Dexter Candelaria HPI: 03/10 10:40 This 24 yrs old Female presents to ER via Ambulatory with complaints of Flu Symptoms, kb Abdominal Pain. 10:40 Pt is a 24 year old female who presents for itchy throat and cough for one month, as kb well as, lower abd pain for 2 weeks. States she came in today because it isn't getting any better. Denies fever, n/v/d. . [employer]: 10:20 LMP 02/27/2025, unknown iw Historical: - Allergies: 10:19 No Known Allergies; iw - Home Meds: 10:19 None [Active]; iw - PMHx: 10:19 None; iw - PSHx: 10:19 None; iw - Immunization history:: Adult Immunizations not up to date. - Infectious Disease History:: Denies. - Social history:: Smoking status: Patient denies any tobacco usage or history of. ROS: 10:39 Constitutional: As per HPI kb Exam: 10:39 Constitutional: This is a well developed, well nourished patient who is awake, alert, kb and in no acute distress. Head/Face: Normocephalic, atraumatic. ENT: Moist Mucous membranes Cardiovascular: Regular rate Respiratory: Respirations even and unlabored. No increased work of breathing. Talking in full sentences Abdomen/GI: Soft, non-tender. No distention Skin: Warm, dry with normal turgor. Normal color. MS/ Extremity: Pulses equal, no cyanosis. Neurovascular intact. Full, normal range of motion. Neuro: Awake and alert, GCS 15, oriented to person, place, time, and situation. Vital Signs: 10:18 BP 100 / 67; Pulse 103; Resp 18; Temp 98.4; Pulse Ox 100% on R/A; Weight 79.38 kg; iw Height 5 ft. 9 in. ; 11:30 BP 99 / 72; Pulse 87; Resp 16; Pulse Ox 100% on R/A; cm10 12:55 BP 103 / 72; Pulse 86; Resp 14; Pulse Ox 99% ; cm10 10:18 Body Mass Index 25.84 (79.38 kg, 175.26 cm) iw MDM: 10:12 Medical Screening Exam initiated kb 11:37 Differential diagnosis: flu, covid, strep, pneumonia, UTI. Data reviewed: vital signs, kb nurses notes. 12:35 Counseling: I had a detailed discussion with the patient and/or guardian regarding the kb historical points, exam findings, and any diagnostic results supporting the discharge/admit diagnosis, lab results, radiology results, the need for outpatient follow up, a family practitioner, to return to the emergency department if symptoms worsen or persist or if there are any questions or concerns that arise at home. 03/10 10:19 Order name: CBC with Diff; Complete Time: 11:02 kb 03/10 10:19 Order name: CMP; Complete Time: 11:26 kb 03/10 10:19 Order name: Lipase; Complete Time: 11:26 kb 03/10 10:19 Order name: Test, Urine; Complete Time: 12:14 kb 03/10 10:19 Order name: Urinalysis w/ reflexes; Complete Time: 12:14 kb 03/10 10:19 Order name: Group A Streptococcus Rapid; Complete Time: 11:05 kb 03/10 11:09 Order name: Throat Culture EDRI 03/10 10:19 Order name: Chest Single View XRAY; Complete Time: 11:23 kb 03/10 10:19 Order name: IV Saline Lock; Complete Time: 10:48 kb 03/10 10:19 Order name: Labs collected and sent; Complete Time: 10:48 kb 03/10 11:38 Order name: Misc. Order: please obtain urine; Complete Time: 11:49 kb Administered Medications: 10:48 Drug: NS 0.9% IV 1000 ml IV at 1 bolus Per protocol; to be given as a bolus over 60 cm10 minutes Route: IV; Rate: 1 bolus; Site: left antecubital; 12:51 Follow up: Response: No adverse reaction; IV Status: Completed infusion; IV Intake: cm10 1000ml 12:50 Drug: Potassium PO Effervescent Tablet 50 mEq PO once; dissolve in 4 ounces of water or cm10 juice Route: PO; 12:51 Follow up: Response: Medication administered at discharge. cm10 Disposition Summary: 03/10/25 12:36 Discharge Ordered Notes: Location: Home kb Condition: Stable kb Diagnosis - UTI/ Urinary tract infection, site not specified kb - Acute upper respiratory infection, unspecified kb Followup: kb - With: Emergency Department - When: As needed - Reason: Worsening of condition Followup: kb - With: Private Physician - When: 2 - 3 days - Reason: Recheck today's complaints, Continuance of care, Re-evaluation by your physician Discharge Instructions: - Discharge Summary Sheet kb - Urinary Tract Infection, Adult, Uhfj-[id number] kb - Upper Respiratory Infection, Adult, [id number] kb - Viral Respiratory Infection, Dent-Az-Trba kb Forms: - Work release form kb - Medication Reconciliation Form kb - Antibiotic Education kb - Prescription Opioid Use kb - Patient Portal Instructions kb - Leadership Thank You Letter kb Prescriptions: - Augmentin 875-125 mg Oral Tablet - take 1 tablet ORAL route every 12 hours for 10 days; 20 tablet; Refills: 0, kb Product Selection Permitted Addendum: 03/12/2025 09:01 Co-signature as Attending Physician, Dexter Candelaria MD I reviewed the patient's care r n provided by the Advanced Practice Provider and agree with the diagnosis and treatment plan. Signatures: Dispatcher [employer] Cassidy Le, PAPER CONSERVATOR-C PAPER CONSERVATOR-Ckb Pamella Enriquez RN RN iw Nieto, Roman, MD MD rn Martinez, Clarissa, RN RN cm10 Corrections: (The following items were deleted from the chart) 03/10 10:19 10:19 CBC+H.LAB.BRZ ordered. EDMS EDMS 10:19 10:19 COMPREHENSIVE METABOLIC PANEL+C.LAB.BRZ ordered. EDMS EDMS 10:19 10:19 LIPASE+C.LAB.BRZ ordered. EDMS EDMS 10:19 10:19 Test, Urine+UC.LAB.BRZ ordered. EDMS EDMS 10:19 10:19 Urinalysis+U.LAB.BRZ ordered. EDMS EDMS 10:19 10:19 Group A Streptococcus Rapid Sc+I.LAB.BRZ ordered. EDMS EDMS
--- NOTE | 2025-03-10 12:37 | ER ---
Nurse's Notes [facility] Name: Lavonne Navarro Age: 24 yrs Sex: Female : 2000 Arrival Date: 03/10/2025 Time: 10:07 Bed 6 Private MD: Diagnosis: UTI/ Urinary tract infection, site not specified;Acute upper respiratory infection, unspecified Presentation: 03/10 10:18 Chief complaint: Patient states: cough X 1 month, itchy throat, lower abd pain after iw eating that started 2 weeks ago. Coronavirus screen: Client presents with at least one sign or symptom that may indicate coronavirus-19. Ebola Screen: No symptoms or risks identified at this time. Initial Sepsis Screen: Does the patient meet any 2 criteria? No. Patient's initial sepsis screen is negative. Does the patient have a suspected source of infection? No. Patient's initial sepsis screen is negative. Risk Assessment: Do you want to hurt yourself or someone else? Patient reports no desire to harm self or others. Onset of symptoms was January 2025. 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 - Infectious Disease History:: Denies. - Social history:: Smoking status: Patient denies any tobacco usage or history of. Screenin:50 [facility] ED Fall Risk Assessment (Adult) History of falling in the last 3 months, cm10 including since admission No falls in past 3 months (0 pts) Confusion or Disorientation No (0 pts) Intoxicated or Sedated No (0 pts) Impaired Gait No (0 pts) Mobility Assist Device Used No (0 pt) Altered Elimination No (0 pt) Score/Fall Risk Level 0 - 2 = Low Risk Oriented to surroundings, Maintained a safe environment, Hourly rounding (assess needs \T\ fall precautionary measures) done. Abuse screen: Denies threats or abuse. Denies injuries from another. Nutritional screening: No deficits noted. Tuberculosis screening: No symptoms or risk factors identified. Assessment: 10:48 General: Appears in no apparent distress. comfortable, Behavior is calm, cooperative, cm10 appropriate for age. Pain: Complains of pain in abdomen. Neuro: No deficits noted. Level of Consciousness is awake, alert, obeys commands, Oriented to person, place, time, situation, Appropriate for age. Respiratory: No deficits noted. Airway is patent Respiratory effort is even, unlabored, Respiratory pattern is regular, symmetrical, Breath sounds are clear bilaterally. GI: Bowel sounds present X 4 quads. Abd is soft and non tender X 4 quads. Musculoskeletal: No deficits noted. Range of motion: intact in all extremities. 12:06 Reassessment: Patient appears in no apparent distress at this time. Patient and/or cm10 family updated on plan of care and expected duration. Pain level reassessed. Patient is alert, oriented x 3, equal unlabored respirations, skin warm/dry/pink. Vital Signs: 10:18 BP 100 / 67; Pulse 103; Resp 18; Temp 98.4; Pulse Ox 100% on R/A; Weight 79.38 kg; iw Height 5 ft. 9 in. ; 11:30 BP 99 / 72; Pulse 87; Resp 16; Pulse Ox 100% on R/A; cm10 12:55 BP 103 / 72; Pulse 86; Resp 14; Pulse Ox 99% ; cm10 10:18 Body Mass Index 25.84 (79.38 kg, 175.26 cm) iw ED Course: 10:08 Patient arrived in ED. im 10:12 Cassidy Arteaga F[facility]-C [facility] kb 10:12 Dexter Candelaria MD is Attending Physician. kb 10:12 Lawanda Barrientos, KIARRA is Primary Nurse. cm10 10:19 Triage completed. iw 10:48 Arm band placed on right wrist. Patient placed in an exam room, on a stretcher. cm10 10:50 Patient has correct armband on for positive identification. Bed in low position. Call cm10 light in reach. Side rails up X2. Pulse ox on. NIBP on. Door closed. Lights dimmed. Warm blanket given. 10:50 Initial lab(s) drawn, by ED staff, sent to lab. Inserted saline lock: 22 gauge in left cm10 antecubital area, using aseptic technique. Blood collected. Flushed with 10 mL NS. 11:12 Chest Single View XRAY In Process Unspecified. EDMS 11:52 Test, Urine Sent. cm10 11:52 Urinalysis w/ reflexes Sent. cm10 12:52 Provided Education on: follow-up instructions. cm10 12:56 No provider procedures requiring assistance completed. IV discontinued, intact, cm10 bleeding controlled, No redness/swelling at site. Pressure dressing applied. Administered Medications: 10:48 Drug: NS 0.9% IV 1000 ml IV at 1 bolus Per protocol; to be given as a bolus over 60 cm10 minutes Route: IV; Rate: 1 bolus; Site: left antecubital; 12:51 Follow up: Response: No adverse reaction; IV Status: Completed infusion; IV Intake: cm10 1000ml 12:50 Drug: Potassium PO Effervescent Tablet 50 mEq PO once; dissolve in 4 ounces of water or cm10 juice Route: PO; 12:51 Follow up: Response: Medication administered at discharge. cm10 Medication: 10:50 VIS not applicable for this client. cm10 Intake: 12:51 IV: 1000ml; Total: 1000ml. cm10 Outcome: 12:36 Discharge ordered by . kb 12:56 Discharged to home ambulatory, cm10 12:56 Condition: good 12:56 Discharge instructions given to patient, Instructed on discharge instructions, follow up and referral plans. medication usage, Demonstrated understanding of instructions, follow-up care, medications, Prescriptions given X 1, 12:56 Patient left the ED. cm10 Signatures: Dispatcher [employer] Cassidy Le, SHAY VALENTIN-Pamella Fishman, RN Stacia London Clarissa, RN RN cm10
[2025-03-12 17:06] VITALS: TEMP 98.4
[2025-03-12 17:08] VITALS: BP 103/72; O2SAT 99
== END 2025-03-10 12:56 | disposition home or self-care (01) ==
LOC: ER 10:07
DX: N39.0 Urinary tract infection, site not specified (principal); J06.9 Acute upper respiratory infection, unspecified
CPT/HCPCS: 96361; 87070; 85025; 81001; 36415; 81025; 83690; 80053; 71045; 96360; 99284; J7030